=== PATIENT | male | born 1970 | race Caucasian/White ===

== ENCOUNTER → 2016-07-25 | Outpatient (CLI) | payer BC ==
[~2016-07-25] MED LIST: GADAVIST IV PRN; HYDR12.56 PO; IBUP-103 PO; NRV/10 PO; ZNF/4 PO
--- NOTE | 2016-07-25 10:41 | DIAGNOSTIC IMAGING REPORT ---
Brain MRI WITH AND WITHOUT CONTRAST HISTORY: F07.81 Postconcussion [id number] Concussion with no loss o TECHNIQUE: Multiplanar multisequence MRI of the brain was performed both before and after the intravenous administration of contrast. COMPARISON STUDY: Head CT 11/11/2013. FINDINGS: There are no areas of restricted diffusion to suggest acute infarction. The midline structures are intact. Mild mucosal thickening within the sphenoid sinuses, maxillary sinuses, and ethmoid air cells. There are few partially opacified left inferior mastoid air cells. A single punctate focus of T2 hyperintensity within the right parietal periventricular white matter. This is of doubtful clinical significance. A 5 mm cystic focus within the right anterior temporal lobe best seen on axial image 9 likely represents a prominent perivascular space. This is considered to be a normal variant. The ventricles and sulci are within normal limits for age. There is no mass, hematoma, midline shift. The major vascular flow-voids at the skull base are well maintained. Postcontrast sequences show no areas of abnormal enhancement. IMPRESSION: No acute intracranial abnormality. Mild chronic sinus disease. Electronically signed by: Choco Lai M.D. 07/25/2016 10:40 AM Dictated Date/Time: 07/25/2016 10:31 AM
[2016-07-25 14:29] LABS: BASO % 0.3 %; BASO ABS # 0.04 K/uL (0-0.2); COMPLETE YES; EOS % 2.5 %; IG% 0.3 %; LYMPH % 13.1 %; LYMPH ABS # 2.05 K/uL (1.2-3.4); MEAN CELL VOLUME 86.7 fL (80-100); MEAN CORPUSCULAR HEMOGLOBIN 30.1 pg (25-34); MEAN CORPUSCULAR HGB CONC 34.7 g/dl (32-36); MEAN PLATELET VOLUME 10.5 fL (7.4-10.4); MONO % 8.2 %; NEUT % 75.6 %; PLATELET COUNT 291 K/uL (130-400); RED BLOOD COUNT 5.19 M/uL (4.7-6.1); WHITE BLOOD COUNT 15.68 K/uL (4.8-10.8)
[2016-07-25 14:33] LABS: ALT/SGPT 46 U/L (12-78); BLOOD UREA NITROGEN 13 mg/dl (7-18); BUN/CREATININE RATIO 13.9 (10-20); CALCIUM 9.2 mg/dl (8.5-10.1); CARBON DIOXIDE 28 mmol/L (21-32); CHLORIDE 107 mmol/L (98-107); CREATININE 0.96 mg/dl (0.60-1.40); GLUCOSE 109 mg/dl (70-99); POTASSIUM 3.8 mmol/L (3.5-5.1); SODIUM 143 mmol/L (136-145)
[2016-07-25 14:44] LABS: ALB/GLOB RATIO 1.3 (0.9-2); ALKALINE PHOSPHATASE 73 U/L (45-117); AST/SGOT 25 U/L (15-37)
[2016-07-25 18:14] LABS: LYME DISEASE AB IGG NEG (NEG); LYME DISEASE AB IGM NEG (NEG)
[2016-07-27 02:47] LABS: RAPID PLASMA REAGIN NONREACTIVE (NONREACT)
== END | disposition home or self-care (01) ==
LOC: C.MRIBC 09:36
PROVIDERS: ATTEND Psychiatry & Neurology Neurology
DX: R51 Headache (principal); R41.89 Other symptoms and signs involving cognitive functions and awareness; S06.0X0A Concussion without loss of consciousness, initial encounter; X58.XXXA Exposure to other specified factors, initial encounter

== ENCOUNTER → 2016-09-05 | Outpatient (CLI) | payer BC ==
[~2016-09-05] MED LIST changes: -GADAVIST IV PRN
== END | disposition home or self-care (01) ==
LOC: C.LABBC 15:23
PROVIDERS: ATTEND Internal Medicine
DX: F07.81 Postconcussional syndrome (principal)

== ENCOUNTER → 2016-09-20 | Outpatient (CLI) | payer BC ==
[~2016-09-20] MED LIST changes: +OPTIRAY 320 IV PRN
--- NOTE | 2016-09-20 13:33 | DIAGNOSTIC IMAGING REPORT ---
CT ANGIOGRAM OF THE CHEST CLINICAL HISTORY: Cough. Atypical chest pain. Hemoptysis. COMPARISON STUDY: Chest x-ray dated 11/08/2015. TECHNIQUE: Following the IV administration of 93 cc of Optiray 320, CT angiogram of the chest was performed from the upper abdomen to the thoracic inlet utilizing the pulmonary embolus protocol. Images are reviewed in the axial, sagittal, and coronal planes. 3-D MIPS images are created and assessed. IV contrast was administered without complication. CT DOSE: 586.11 mGycm FINDINGS: Thyroid: Imaged portions of the thyroid gland are normal in size and attenuation. Thoracic aorta: The thoracic aorta is normal in caliber and demonstrates standard 3-vessel arch anatomy. No dissection is seen. Pulmonary vasculature: The pulmonary trunk is normal in caliber. There are no filling defects identified in main, lobar, or segmental pulmonary branches to suggest pulmonary embolus. Heart: The heart is normal in size and configuration, and without pericardial effusion. Lungs and pleural spaces: The lungs and pleural spaces are clear. Mediastinum: There is no mediastinal lymphadenopathy. Lyndsey: Clear. Axillae: There is no axillary lymphadenopathy. Upper abdomen: 1.3 cm cyst is noted in the left hepatic lobe. Partially visualized upper abdominal viscera is otherwise within normal limits. Skeletal structures: No lytic or blastic bony lesions are seen. IMPRESSION: 1. There is no evidence of pulmonary embolus in the main, lobar, or segmental pulmonary arteries. 2. The lungs are clear. Electronically signed by: Papa Guillen M.D. 09/20/2016 1:32 PM Dictated Date/Time: 09/20/2016 1:22 PM
== END | disposition home or self-care (01) ==
LOC: C.CTS 12:58
PROVIDERS: ATTEND Internal Medicine
DX: R07.89 Other chest pain (principal); R04.2 Hemoptysis; R06.00 Dyspnea, unspecified

== ENCOUNTER → 2017-08-24 | Outpatient (CLI) | payer BC ==
[~2017-08-24] MED LIST changes: -OPTIRAY 320 IV PRN
--- NOTE | 2017-08-24 15:54 | DIAGNOSTIC IMAGING REPORT ---
RIGHT HAND 3 VIEWS, LEFT HAND 3 VIEWS CLINICAL HISTORY: Bilateral hand pain. COMPARISON STUDY: None. FINDINGS: No fracture or dislocation within the right or left hand. 1 mm punctate density within the soft tissues of the left thumb consistent with a radiopaque foreign body. Bone mineralization is intact. No erosions identified. Minimal cartilage space narrowing and tiny osteophytes within a few of the DIP joints of the bilateral hands and left first carpometacarpal joint. This is consistent with degenerative change. IMPRESSION: 1. Minimal osteoarthritis within the bilateral hands. 2. No bony erosions identified. 3. A 1 mm punctate radiopaque foreign body within the soft tissues of the left thumb. Electronically signed by: Choco Lai M.D. 08/24/2017 3:52 PM Dictated Date/Time: 08/24/2017 3:47 PM
[2017-08-24 16:46] LABS: BASO % 0.4 %; BASO ABS # 0.04 K/uL (0-0.2); EOS ABS # 0.29 K/uL (0-0.5); HEMATOCRIT 43.1 % (42-52); HEMOGLOBIN 15.2 g/dL (14.0-18.0); IG# 0.03 K/uL (0.00-0.02); LYMPH % 28.1 %; LYMPH ABS # 2.67 K/uL (1.2-3.4); MEAN CELL VOLUME 86.4 fL (80-100); MEAN CORPUSCULAR HEMOGLOBIN 30.5 pg (25-34); MEAN CORPUSCULAR HGB CONC 35.3 g/dl (32-36); MEAN PLATELET VOLUME 9.8 fL (7.4-10.4); MONO % 6.7 %; MONO ABS # 0.64 K/uL (0.11-0.59); NEUT % 61.5 %; NEUT ABS # 5.84 K/uL (1.4-6.5); PLATELET COUNT 299 K/uL (130-400); RED CELL DISTRIBUTION WIDTH CV 12.7 % (11.5-14.5); RED CELL DISTRIBUTION WIDTH SD 40.1 fL (36.4-46.3); WHITE BLOOD COUNT 9.51 K/uL (4.8-10.8)
[2017-08-24 17:10] LABS: ALBUMIN 4.1 gm/dl (3.4-5.0); ALT/SGPT 28 U/L (12-78); BLOOD UREA NITROGEN 13 mg/dl (7-18); CALCIUM 8.8 mg/dl (8.5-10.1); CARBON DIOXIDE 26 mmol/L (21-32); CHOLESTEROL 240 mg/dl (0-200); CREATININE 1.03 mg/dl (0.60-1.40); GLUCOSE 83 mg/dl (70-99); SODIUM 138 mmol/L (136-145); URIC ACID 5.3 mg/dl (2.6-7.2)
[2017-08-24 17:13] LABS: ALKALINE PHOSPHATASE 65 U/L (45-117); AST/SGOT 22 U/L (15-37); LDL CHOLESTEROL CALCULATED 169 mg/dl; TOTAL PROTEIN 7.4 gm/dl (6.4-8.2)
== END ==
LOC: C.RADBC 15:18
PROVIDERS: ATTEND Internal Medicine
DX: I10 Essential (primary) hypertension (principal); E78.5 Hyperlipidemia, unspecified; M79.641 Pain in right hand; M79.642 Pain in left hand

== ENCOUNTER 2018-09-20 20:56 | Observation (INO) ==
[2018-09-20] MEDS ORDERED: ONDANSETRON INJ 2 MG/ML 2 ML VIAL IV STA (22:36)
[2018-09-20] MEDS ORDERED: MoRPHine SULFATE 4 MG/ML 1 ML CARP\\VIAL IV STA (22:36)
[2018-09-20] MEDS ORDERED: HYDROmorphone INJ 1 MG/ML SYRINGE IV STA (22:39)
[2018-09-20 22:49] LABS: Appearance Urine Cloudy (Clear); Bacteria Urine Automated Negative (Negative); Bilirubin Urine Negative (Negative); Blood Urine Negative (Negative); Color Urine Yellow; Epithelial Cell Urine Auto 0-5 /lpf (0-5); Glucose Urine UA Negative (Negative); Ketones Urine Negative (Negative); Leukocyte Esterase Urine Negative (Negative); Nitrite Urine Negative (Negative); Protein Urine Negative (Negative); Urobilinogen Urine Negative (Negative); pH Urine 7.5 (4.5-7.5)
[2018-09-20 22:51] LABS: Basophils # (auto) 0.04 K/uL (0-0.2); Basophils % (auto) 0.4 %; Eosinophils # (auto) 0.39 K/uL (0-0.5); Eosinophils % (auto) 4.1 %; Hemoglobin 15.3 g/dL (14.0-18.0); Immature Granulocytes # (auto) 0.02 K/uL (0.00-0.02); Immature Granulocytes % (auto) 0.2 %; Lymphocytes # (auto) 2.51 K/uL (1.2-3.4); Lymphocytes % (auto) 26.4 %; Mean Corpuscular Hgb Conc 34.8 g/dL (32-36); Mean Corpuscular Volume 90.2 fL (80-100); Mean Platelet Volume 10.4 fL (7.4-10.4); Monocytes # (auto) 0.88 K/uL (0.11-0.59); Monocytes % (auto) 9.2 %; Neutrophils # (auto) 5.68 K/uL (1.4-6.5); Neutrophils % (auto) 59.7 %; Platelet Count 296 K/uL (130-400); RDW Coefficient of Variation 12.4 % (11.5-14.5); RDW Standard Deviation 40.4 fL (36.4-46.3); Red Blood Count 4.88 M/uL (4.7-6.1); White Blood Count 9.52 K/uL (4.8-10.8)
[2018-09-20 23:27] LABS: Calcium 8.5 mg/dl (8.5-10.1); Est GFR (Non-African American) 68.1; Potassium 4.3 mmol/L (3.5-5.1)
--- NOTE | 2018-09-20 23:34 | Ultrasound Report ---
ULTRASOUND LEFT GROIN NONVASCULAR CLINICAL HISTORY: Left groin pain. COMPARISON STUDY: Pelvic CT dated 09/19/2018. FINDINGS: Real-time grayscale sonography of the left groin is performed to assess for inguinal hernia . There is a small and nonreducible fat-containing left inguinal hernia. No bowel or fluid is identif ied within the hernia sac. No inguinal adenopathy is seen. IMPRESSION: There is a small and nonreducible fat-containing left inguinal hernia. This was also seen on the 09/19/2018 CT scan. Electronically signed by: Papa Guillen M.D. 09/20/2018 11:33 PM
[2018-09-21] MEDS ORDERED: HYDROmorphone INJ 1 MG/ML SYRINGE ONE (00:59)
[2018-09-21] MEDS ORDERED: HYDROmorphone INJ 1 MG/ML SYRINGE IV STA ×2 (01:04→01:16)
[2018-09-21] MEDS ORDERED: IOVERSOL 100ml IV PRN (01:16)
[2018-09-21] MEDS ORDERED: SODIUM CHLORIDE 0.9% 1000ML 1,000 ML IV ONE (01:16)
--- NOTE | 2018-09-21 01:23 | CT Scan Report ---
CT SCAN OF THE PELVIS WITH IV CONTRAST CLINICAL HISTORY: Left groin pain. COMPARISON STUDY: Pelvic CT dated 09/19/2018. TECHNIQUE: Following the IV administration of 94 cc of Optiray 320, CT scan of the pelvis is performe d from the pelvic inlet to the proximal femora. Images are reviewed in the axial, sagittal, and coron al planes. IV contrast was administered without complication. A dose lowering technique was utilized adhering to the principles of ALARA. CT DOSE: 417.83 mGy.cm FINDINGS: The bladder, prostate, and seminal vesicles are normal as visualized. There is a small fat-containing right inguinal hernia. There is also a tiny fat-containing left inguinal hernia. Minimal stranding i s seen within the left inguinal hernia which may represent incarceration. There is no bowel within th e hernia sac. The visualized small bowel and colon are normal in caliber. A normal appendix is identified. There is a tiny fat-containing umbilical hernia. There is no pelvic sidewall or inguinal lymphadenopathy. No free fluid seen in the pelvis. The iliac vessels are patent. The bony pelvis appears intact. No lytic or blastic lesion is seen. The regional musculature is malissa l and symmetric. IMPRESSION: 1. There are bilateral fat-containing inguinal hernias, right larger than left. 2. There is minimal stranding within the left inguinal hernia which may represent incarceration. 3. No bowel or fluid is seen within either hernia. Electronically signed by: Papa Guillen M.D. 09/21/2018 1:22 AM
[2018-09-21] MEDS ORDERED: ONDANSETRON INJ 2 MG/ML 2 ML VIAL IV PRN ×2 (02:29→12:35)
--- NOTE | 2018-09-21 02:48 | Emergency Department Note ---
History of Present Illness General Chief complaint: Abdominal Pain Stated complaint: ABDOMINAL PAIN, HERNIA RUPTURE History of Present Illness Maximum Pain Intensity: 6 This 48-year-old presents to the ER complaining of left groin pain Location: Left groin Quality: Throbbing Severity: Moderate Duration: Today Timing: Today Context: Pain persisted and patient came in Modifying factors: better with nothing; worse with palpation Patient states he was coughing and felt a bulge down below. He was here the other day and states that we reduced his hernia. He has appointment next week with Dr. Gore. Patient denies chest pain, dyspnea, fevers, back pain or any other medical complaints. Home Medications Home Medications Medication Instructions Recorded Confirmed Type amlodipine 10 mg PO DAILY 03/29/18 09/20/18 History metoprolol succinate [Toprol XL] 25 mg PO DAILY 03/29/18 09/20/18 History lidocaine [Lidoderm] 1 patch TOP DAILY PRN 09/19/18 09/20/18 History telmisartan 80 mg PO DAILY 09/19/18 09/20/18 History diclofenac sodium 75 mg PO BID PRN 09/20/18 09/20/18 History escitalopram oxalate [Lexapro] 20 mg PO DAILY 09/20/18 09/20/18 History tizanidine [Zanaflex] 4 mg PO DAILY PRN 09/20/18 09/20/18 History Allergies Allergy/AdvReac Type Severity Reaction Status Date / Time Sulfa (Sulfonamide Allergy Unknown . Verified 09/19/18 09:53 Antibiotics) Past Med/Surg History Medical History Hyperlipidemia (Chronic) Hypertension (Chronic) Lumbar back pain with radiculopathy affecting left lower extremity (Acute) Cervical strain (Resolved) Cervical strain (Resolved) Contusion of right shoulder (Resolved) Facial fracture (Resolved) Fall (Resolved) Head trauma (Resolved) Lumbar strain (Resolved) Low back pain (Inactive) Surgical History History of lumbar surgery (Resolved) L5-S1 surgery [address] 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 Feels Safe at Home: Yes Smoking Status: Never smoker Hx Alcohol Use: Yes (occassionally) Hx Substance Use: No Review of Systems All systems reviewed & are unremarkable except as noted in HPI & below Physical Exam Vital Signs Vital Signs - 24 hr 09/20/18 20:59 09/20/18 23:22 09/21/18 01:17 Temperature 36.9 C Temperature Source Oral Sepsis Recent Fever Within 48 Hours No Sepsis New/Unexplained Change in Mental Status No Sepsis Action Taken by Nursing No Action Required Pulse Rate 98 H Pulse Rate [Finger] 81 76 Pulse Rhythm [Finger] Regular Pulse Strength [Finger] Normal Respiratory Rate 18 18 18 Respiratory Effort / Characteristics Non-Labored Respiratory Depth Normal Respiratory Pattern Regular Blood Pressure 170/103 H Blood Pressure [Right Arm] 146/83 H 123/84 Blood Pressure Mean 125 Blood Pressure Mean [Right Arm] 104 97 Blood Pressure Position [Right Arm] Lying Pulse Oximetry 97 97 94 Oxygen Delivery Method Room Air Room Air VITALS: Vitals are noted on the nurse's note and reviewed by myself. Vital signs stable. GENERAL: White male, in no acute distress, nondiaphoretic, well-developed well- nourished. SKIN: Capillary reflex less than 2 seconds. HEENT: Normocephalic. PERRLA. EOMI. Nares patent. Mucous membranes moist. Neck is supple without nuchal rigidity. HEART: Regular rate and rhythm without murmurs gallops or rubs. LUNGS: Clear to auscultation bilaterally without wheezes, rales or rhonchi. No retractions or accessory muscle use. ABDOMEN: Positive bowel sounds x 4. Normal tympanic percussion. Soft, nontender, without masses or organomegaly. Left groin with palpable hernia unable to reduce, Ngo sign negative. No guarding or rebound tenderness. exam: Left groin no palpable hernia unable to reduce. Normal male genitalia. Testicles nontender. Staff Radiologist present. MUSCULOSKELETAL: No gross musculoskeletal defects. NEURO: Patient was alert and oriented to person place and time. Normal sensation to light and sharp touch. No focal neurological deficits. Course Administered Medications Ioversol (Optiray 320 100ml) 94 ml IV ONCE PRN PRN Reason: Interaction Checking Stop: 09/25/18 01:15 Last Admin: 09/21/18 01:16 Dose: 94 ml Documented by: [id number] Discontinued Medications Hydromorphone HCl (Dilaudid) 1 mg IV NOW STA Stop: 09/20/18 22:40 Last Admin: 09/20/18 22:42 Dose: 1 mg Documented by: [id number] Hydromorphone HCl (Dilaudid) Confirm Administered Dose 1 mg .ROUTE .STK-MED ONE Stop: 09/21/18 01:00 Last Admin: 09/21/18 01:06 Dose: Not Given Documented by: [id number] Hydromorphone HCl (Dilaudid) 1 mg IV NOW STA Stop: 09/21/18 01:05 Last Admin: 09/21/18 01:10 Dose: 1 mg Documented by: [id number] Sodium Chloride (Nss 1000ml) 1,000 mls @ 999 mls/hr IV .Q1H1M ONE Stop: 09/21/18 02:16 Last Infusion: 09/21/18 02:21 Dose: 0 mls/hr Documented by: [id number] Admin: 09/21/18 01:19 Dose: 999 mls/hr Documented by: [id number] Morphine Sulfate (Morphine Sulfate) 6 mg IV NOW STA Stop: 09/20/18 22:37 Last Admin: 09/20/18 22:42 Dose: Not Given Documented by: [id number] Ondansetron HCl (Zofran) 4 mg IV NOW STA Stop: 09/20/18 22:37 Last Admin: 09/20/18 22:43 Dose: 4 mg Documented by: [id number] Medical Decision Making Medical Records Attestation: I reviewed the patient's medical records. Home Medications Current Medication List: was personally reviewed by me Laboratory Data Attestation: I reviewed the patient's lab results. Result diagrams: 09/20/18 21:40 09/20/18 21:40 Lab Results 09/20/18 09/20/18 09/20/18 Range/Units 21:05 21:40 21:40 WBC 9.52 (4.8-10.8) K/uL RBC 4.88 (4.7-6.1) M/uL Hgb 15.3 (14.0-18.0) g/dL Hct 44.0 (42-52) % MCV 90.2 (80-100) fL MCH 31.4 (25-34) pg MCHC 34.8 (32-36) g/dL RDW Std Deviation 40.4 (36.4-46.3) fL RDW Coeff of Brooks 12.4 (11.5-14.5) % Plt Count 296 (130-400) K/uL MPV 10.4 (7.4-10.4) fL Immature Gran % (Auto) 0.2 % Neut % (Auto) 59.7 % Lymph % (Auto) 26.4 % [place] % (Auto) 9.2 % Eos % (Auto) 4.1 % Baso % (Auto) 0.4 % Immature Gran # (Auto) 0.02 (0.00-0.02) K/uL Neut # (Auto) 5.68 (1.4-6.5) K/uL Lymph # (Auto) 2.51 (1.2-3.4) K/uL [place] # (Auto) 0.88 H (0.11-0.59) K/uL Eos # (Auto) 0.39 (0-0.5) K/uL Baso # (Auto) 0.04 (0-0.2) K/uL Sodium 143 (136-145) mmol/L Potassium 4.3 (3.5-5.1) mmol/L Chloride 108 H (98-107) mmol/L Carbon Dioxide 30 (21-32) mmol/L Anion Gap 5.0 (3-11) BUN 15 (7-18) mg/dl Creatinine 1.25 (0.6-1.4) mg/dl Est Cr Clr Drug Dosing 79.0 ml/min Est GFR ( Amer) 79.0 Est GFR (Non-Af Amer) 68.1 BUN/Creatinine Ratio 12.0 (10-20) Glucose 100 H (70-99) mg/dl POC Lactic Acid Jerardo (0.90-1.70) mmol/L Calcium 8.5 (8.5-10.1) mg/dl Specimen Hemolysis Urine Color Yellow Urine Appearance Cloudy H (Clear) Urine pH 7.5 (4.5-7.5) Ur Specific [place] 1.020 (1.000-1.030) Urine Protein Negative (Negative) Urine Glucose (UA) Negative (Negative) Urine Ketones Negative (Negative) Urine Blood Negative (Negative) Urine Nitrite Negative (Negative) Urine Bilirubin Negative (Negative) Urine Urobilinogen Negative (Negative) Ur Leukocyte Esterase Negative (Negative) Urine WBC (Auto) 1-5 (0-5) /hpf Urine RBC (Auto) 5-10 H (0-4) /hpf U Hyaline Cast (Auto) 1-5 (0-5) /lpf U Epithel Cells (Auto) 0-5 (0-5) /lpf Urine Bacteria (Auto) Negative (Negative) 09/21/18 Range/Units 01:32 WBC (4.8-10.8) K/uL RBC (4.7-6.1) M/uL Hgb (14.0-18.0) g/dL Hct (42-52) % MCV (80-100) fL MCH (25-34) pg MCHC (32-36) g/dL RDW Std Deviation (36.4-46.3) fL RDW Coeff of Brooks (11.5-14.5) % Plt Count (130-400) K/uL MPV (7.4-10.4) fL Immature Gran % (Auto) % Neut % (Auto) % Lymph % (Auto) % [place] % (Auto) % Eos % (Auto) % Baso % (Auto) % Immature Gran # (Auto) (0.00-0.02) K/uL Neut # (Auto) (1.4-6.5) K/uL Lymph # (Auto) (1.2-3.4) K/uL [place] # (Auto) (0.11-0.59) K/uL Eos # (Auto) (0-0.5) K/uL Baso # (Auto) (0-0.2) K/uL Sodium (136-145) mmol/L Potassium (3.5-5.1) mmol/L Chloride (98-107) mmol/L Carbon Dioxide (21-32) mmol/L Anion Gap (3-11) BUN (7-18) mg/dl Creatinine (0.6-1.4) mg/dl Est Cr Clr Drug Dosing ml/min Est GFR ( Amer) Est GFR (Non-Af Amer) BUN/Creatinine Ratio (10-20) Glucose (70-99) mg/dl POC Lactic Acid Jerardo 0.59 L (0.90-1.70) mmol/L Calcium (8.5-10.1) mg/dl Specimen Hemolysis Urine Color Urine Appearance (Clear) Urine pH (4.5-7.5) Ur Specific [place] (1.000-1.030) Urine Protein (Negative) Urine Glucose (UA) (Negative) Urine Ketones (Negative) Urine Blood (Negative) Urine Nitrite (Negative) Urine Bilirubin (Negative) Urine Urobilinogen (Negative) Ur Leukocyte Esterase (Negative) Urine WBC (Auto) (0-5) /hpf Urine RBC (Auto) (0-4) /hpf U Hyaline Cast (Auto) (0-5) /lpf U Epithel Cells (Auto) (0-5) /lpf Urine Bacteria (Auto) (Negative) MDM Narrative Prior records/ancillary studies reviewed. Triage Nursing notes reviewed. Additional history obtained from the. The patient's history was concerning for left lower groin abdominal pain. Differential diagnosis: Etiologies such as hernia, appendicitis, diverticulitis, PUD, biliary pathology, UTI, pancreatitis, obstruction, mesenteric ischemia, aortic pathology, infections, inflammatory bowel disease, renal colic, as well as others were entertained. Physical examination findings: As above. ER treatment provided: IV Dilaudid, IV fluids On reassessment the patient felt better. Diagnostics interpreted by me: The labs revealed no leukocytosis Imaging studies: CT scans were reviewed Consultation: A consultation was placed with the surgeon, Dr. Anthony. The case was discussed and diagnostics were reviewed. The patient was admitted to his service and will evaluate the patient in the morning for surgery. Exam and history seem consistent with possible incarcerated hernia. Patient is agreeable to treatment plan of admission. I did try to reduce the hernia and was unsuccessful. Surgery will evaluate the patient. Patient had a negative lactic acid. No leukocytosis. By the evaluation outlined above emergent etiologies such as appendicitis, diverticulitis, PUD, biliary pathology, UTI, pancreatitis, mesenteric ischemia, aortic pathology, infections, inflammatory bowel disease, renal colic, as well as others were deemed relatively unlikely. The pt informed about the findings as listed above. All questions were answered and pleased with the treatment. Case reviewed with my attending The chart was completed utilizing [employer] voice recognition software. Grammatical errors, random word insertions, pronoun errors, and incomplete sentences are an occassional consequence of this system due to software limitations, ambient noise, and hardware issues. Any formal questions or concerns about the content, text, or information contained within the body of this dictation should be directly addressed to the physician home care assistant for clarification. Impression & Plan Incarcerated left inguinal hernia Discharge Plan Visit Data *Final* Discharge Date/Time: 09/21/18 02:20 Chief Complaint: Abdominal Pain Stated Complaint: ABDOMINAL PAIN, HERNIA RUPTURE ED Provider: Ayden Sherwood ED Midlevel Provider: Rosanna Currie Discharge Problem: Incarcerated left inguinal hernia Patient Disposition: Admitted As Inpatient Condition: Good Discharge Instructions Interventions: ED Discharge Assessment Last Done: 09/21/18 02:20
[2018-09-21] MEDS: HYDROmorphone INJ 1 MG/ML SYRINGE IV PRN ×3 (02:50→12:39)
[2018-09-21] MEDS: LACTATED RINGER'S 1,000 ML IV SCH ×2 (02:56→19:41)
[2018-09-21] MEDS: HYDROmorphone INJ 0.5 MG/0.5 ML SYR IV PRN ×2 (06:46→17:24)
--- NOTE | 2018-09-21 07:42 | Anesthesiology Consultation ---
Date of Service September 21, 2018 Assessment & Plan Chart Review Chart Review: Acceptable Risk for Surgery and Patient NOT seen in Pre Admission Testing Consults Requested none ASA [id number] Proposed Anesthesia Anesthesia Type: General Risk / Benefits Reviewed With: PT / POA / Parent / Guardian, Accepts Plan and Informed Consent Obtained NPO Date Last Intake of Fluids: 09/20/18 Time Last Intake of Fluids: 18:00 Date Last Intake of Solids: 09/20/18 Time Last Intake of Solids: 18:00 History Surgery Operation Date: 09/21/18 13:00 Proposed Procedures p Inguinal Hernia Repair(Left) - Almas Anthoyn, Height/Weight Height: 1.68 m Weight: 92.3 kg Allergies Allergy/AdvReac Type Severity Reaction Status Date / Time Sulfa (Sulfonamide Allergy Unknown . Verified 09/19/18 09:53 Antibiotics) Medications Home Medications Medication Instructions Recorded Confirmed Last Taken amlodipine 10 mg PO DAILY 03/29/18 09/20/18 04/01/18 metoprolol succinate [Toprol XL] 25 mg PO DAILY 03/29/18 09/20/18 04/01/18 lidocaine [Lidoderm] 1 patch TOP DAILY PRN 09/19/18 09/20/18 Unknown telmisartan 80 mg PO DAILY 09/19/18 09/20/18 Unknown diclofenac sodium 75 mg PO BID PRN 09/20/18 09/20/18 Unknown escitalopram oxalate [Lexapro] 20 mg PO DAILY 09/20/18 09/20/18 Unknown tizanidine [Zanaflex] 4 mg PO DAILY PRN 09/20/18 09/20/18 Unknown oxycodone-acetaminophen [Endocet] 1 - 2 tab PO Q6H PRN #30 tab 09/21/18 Unknown Active Medications Generic Name Dose Route Start Last Admin Trade Name Freq PRN Reason Stop Dose Admin Amlodipine Besylate 10 mg 09/21/18 09:00 09/21/18 09:28 Norvasc PO 10/21/18 08:59 10 mg DAILY ASHLEY Administration Hydromorphone HCl 0.5 mg 09/21/18 02:29 09/21/18 06:46 Dilaudid IV 10/05/18 02:28 0.5 mg Q1HWA PRN Administration MODERATE Pain (Scale 4,5,6) Hydromorphone HCl 1 mg 09/21/18 02:29 09/21/18 12:39 Dilaudid IV 10/05/18 02:28 1 mg Q1HWA PRN Administration SEVERE Pain (Scale 7,8,9,10) Lactated Ringer's 1,000 mls @ 100 mls/hr 09/21/18 02:29 09/21/18 03:57 Lr IV 10/21/18 02:28 100 mls/hr .Q10H ASHLEY Infusion Ioversol 94 ml 09/21/18 01:16 09/21/18 01:16 Optiray 320 100ml IV 09/25/18 01:15 94 ml ONCE PRN Administration Interaction Checking Metoprolol Succinate 25 mg 09/21/18 09:00 09/21/18 09:28 Toprol Xl PO 10/21/18 08:59 25 mg DAILY ASHLEY Administration Telmisartan 80 mg 09/21/18 09:00 09/21/18 09:27 Micardis PO 10/21/18 08:59 80 mg DAILY ASHLEY Administration Beta Jesus Beta Jesus Taken Within 24 Hours: Yes Past Medical History Medical History Hyperlipidemia (Chronic) Hypertension (Chronic) Lumbar back pain with radiculopathy affecting left lower extremity (Acute) Kidney stones Cervical strain (Resolved) Cervical strain (Resolved) Contusion of right shoulder (Resolved) Facial fracture (Resolved) Fall (Resolved) Head trauma (Resolved) Lumbar strain (Resolved) Low back pain (Inactive) Past Family History Family History Other No significant family history Past Surgical History Surgical History History of lumbar surgery (Resolved) L5-S1 surgery [address] Grant Past Anesthesia History No Hx of Anesthesia Complications and No Family Hx of Anesthesia Complications History of PONV No Motion Sickness Screening History of Motion Sickness: No Social History Smoking Status: Never smoker Do You Dip or Chew Tobacco: Yes (1/2 can per day) Hx Alcohol Use: Yes Alcohol type: beer alcohol intake frequency: 0-2 drinks per day Hx Substance Use: No Exercise / Class Metabolic Activity II 4-5 Yardwork/Stairs/Walk up hill Physical Exam Vital Signs Last Vital Signs Temp 36.8 C 09/21/18 07:32 Pulse 60 09/21/18 08:46 Resp 18 09/21/18 07:32 BP 143/84 H 09/21/18 08:46 Pulse Ox 95 09/21/18 07:32 Constitutional + obese ENMT Mouth: no TMJ abnormality and no TMJ clicking Thyromental Distance: > or= 3.5 Finger Breadths Mallampati Class: II Neck normal visual inspection; neck extension not limited Respiratory Auscultation: lungs clear to auscultation bilaterally Cardiovascular Rate/Rhythm: regular rate and regular rhythm Psychiatric Orientation: alert and oriented x 3 Testing Laboratory Results 09/20/18 21:40 09/20/18 21:40 Urine Color Yellow 09/20/18 21:05 Urine Appearance Cloudy (Clear) H 09/20/18 21:05 Urine pH 7.5 (4.5-7.5) 09/20/18 21:05 Ur Specific [place] 1.020 (1.000-1.030) 09/20/18 21:05 Urine Protein Negative (Negative) 09/20/18 21:05 Urine Glucose (UA) Negative (Negative) 09/20/18 21:05 Urine Ketones Negative (Negative) 09/20/18 21:05 Urine Nitrite Negative (Negative) 09/20/18 21:05 Ur Leukocyte Esterase Negative (Negative) 09/20/18 21:05 Urine WBC (Auto) 1-5 /hpf (0-5) 09/20/18 21:05 Urine RBC (Auto) 5-10 /hpf (0-4) H 09/20/18 21:05 U Hyaline Cast (Auto) 1-5 /lpf (0-5) 09/20/18 21:05 U Epithel Cells (Auto) 0-5 /lpf (0-5) 09/20/18 21:05 Urine Bacteria (Auto) Negative (Negative) 09/20/18 21:05
[2018-09-21] MEDS: TELMISARTAN 40 MG TAB PO SCH (09:27)
[2018-09-21] MEDS: AMLODIPINE BESYLATE 5 MG TAB PO SCH (09:28)
[2018-09-21] MEDS: METOPROLOL SUCC 25MG EXT REL TAB PO SCH (09:28)
--- NOTE | 2018-09-21 10:00 | History & Physical Report ---
Date of Service September 21, 2018 Assessment & Plan (1) Incarcerated left inguinal hernia: We discussed his options. Only the left groin is symptomatic and with the acute incarceration I feel we should probably repair that one urgently. I am recommending an open repair with mesh. We discussed bleeding, infection, infection of mesh requiring explant, chronic pain, injury to the spermatic cord, DVT, PE, PR, CVA etc. We have decided to leave the non-acute side alone for now we may consider electively repairing that in the future. I answered all of his questions and he is agreeable to the plan. We will proceed with open left inguinal hernia repair with mesh JOHNATHAN. (2) Lumbar back pain with radiculopathy affecting left lower extremity: (3) Right inguinal hernia: History of Present Illness Primary Care Provider: Uli Kaiser MD Patient with new onset left inguinal discomfort. He was seen in the emergency room yesterday and discharged. He presented again with similar pain. CT scan shows bilateral inguinal hernias with the left inguinal hernia being incarcerated. Patient is currently feeling better after receiving Dilaudid. No nausea or vomiting. The patient does have a history of chronic back issues with chronic back pain including pain into his left lower extremity. Allergies Allergy/AdvReac Type Severity Reaction Status Date / Time Sulfa (Sulfonamide Allergy Unknown . Verified 09/19/18 09:53 Antibiotics) Home Medications Home Medications Medication Instructions Recorded Confirmed Type amlodipine 10 mg PO DAILY 03/29/18 09/20/18 History metoprolol succinate [Toprol XL] 25 mg PO DAILY 03/29/18 09/20/18 History lidocaine [Lidoderm] 1 patch TOP DAILY PRN 09/19/18 09/20/18 History telmisartan 80 mg PO DAILY 09/19/18 09/20/18 History diclofenac sodium 75 mg PO BID PRN 09/20/18 09/20/18 History escitalopram oxalate [Lexapro] 20 mg PO DAILY 09/20/18 09/20/18 History tizanidine [Zanaflex] 4 mg PO DAILY PRN 09/20/18 09/20/18 History Past Med/Surg History Medical History Hyperlipidemia (Chronic) Hypertension (Chronic) Lumbar back pain with radiculopathy affecting left lower extremity (Acute) Kidney stones Cervical strain (Resolved) Cervical strain (Resolved) Contusion of right shoulder (Resolved) Facial fracture (Resolved) Fall (Resolved) Head trauma (Resolved) Lumbar strain (Resolved) Low back pain (Inactive) Surgical History History of lumbar surgery (Resolved) L5-S1 surgery [address] 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 mild discomfort Heent: Pearla. eomi Heart: RRR Lungs: CTA b/l abd: soft. + LIH. nonreducible. minimally tender. RIH with valsalva. nontender ext: no c/c/e Results & Data Medications Administered Amlodipine Besylate (Norvasc) 10 mg PO DAILY ASHLEY Stop: 10/21/18 08:59 Last Admin: 09/21/18 09:28 Dose: 10 mg Documented by: [id number] Hydromorphone HCl (Dilaudid) 0.5 mg IV Q1HWA PRN PRN Reason: MODERATE Pain (Scale 4,5,6) Stop: 10/05/18 02:28 Last Admin: 09/21/18 06:46 Dose: 0.5 mg Documented by: [id number] Hydromorphone HCl (Dilaudid) 1 mg IV Q1HWA PRN PRN Reason: SEVERE Pain (Scale 7,8,9,10) Stop: 10/05/18 02:28 Last Admin: 09/21/18 08:14 Dose: 1 mg Documented by: [id number] Admin: 09/21/18 02:50 Dose: 1 mg Documented by: [id number] Lactated Ringer's (Lr) 1,000 mls @ 100 mls/hr IV .Q10H [facility] Stop: 10/21/18 02:28 Last Infusion: 09/21/18 03:57 Dose: 100 mls/hr Documented by: [id number] Infusion: 09/21/18 03:16 Dose: 0 mls/hr Documented by: [id number] Admin: 09/21/18 02:56 Dose: 100 mls/hr Documented by: [id number] Ioversol (Optiray 320 100ml) 94 ml IV ONCE PRN PRN Reason: Interaction Checking Stop: 09/25/18 01:15 Last Admin: 09/21/18 01:16 Dose: 94 ml Documented by: [id number] Metoprolol Succinate (Toprol Xl) 25 mg PO DAILY [facility] Stop: 10/21/18 08:59 Last Admin: 09/21/18 09:28 Dose: 25 mg Documented by: [id number] Telmisartan (Micardis) 80 mg PO DAILY [facility] Stop: 10/21/18 08:59 Last Admin: 09/21/18 09:27 Dose: 80 mg Documented by: [id number]
[2018-09-21] MEDS ORDERED: BUPIVACAINE/EPINEPHRINE 0.5% MPF 1:200,000 30 ML VIAL ONE (12:31)
[2018-09-21] MEDS ORDERED: PROMETHAZINE HCL 12.5 MG in SODIUM CHLORIDE 0.9% 50 ML IV PRN (12:35)
[2018-09-21] MEDS ORDERED: PHENYLEPHRINE 100MCG/ML 5ML SYR IV PRN (12:35)
[2018-09-21] MEDS ORDERED: HYDROmorphone INJ 1 MG/ML SYRINGE IV PRN (12:35)
[2018-09-21] MEDS ORDERED: ePHEDrine sulfate 50 MG/ML AMP IV PRN (12:35)
[2018-09-21] MEDS ORDERED: ATROPINE SULFATE 0.1 MG/ML 10ML SYR IV PRN (12:35)
[2018-09-21] MEDS ORDERED: ONDANSETRON INJ 2 MG/ML 2 ML VIAL ONE (12:36)
[2018-09-21] MEDS ORDERED: DEXAMETHASONE SOD INJ 4 MG/ML VIAL ONE (12:36)
[2018-09-21] MEDS ORDERED: NEOSTIGMINE METHYLSULFATE 5 MG/5 ML SYR ONE (12:36)
[2018-09-21] MEDS ORDERED: PROPOFOL IV EMULSION 10 MG/ML 20 ML VIAL IV ONE (12:36)
[2018-09-21] MEDS ORDERED: GLYCOPYRROLATE 0.2 MG/ML VIAL ONE (12:36)
[2018-09-21] MEDS ORDERED: LIDOCAINE HCL 2% 2 ML VIAL/AMP(20MG/ML) INFIL ONE (12:36)
[2018-09-21] MEDS ORDERED: fentaNYL citrate 100 MCG/2 ML VIAL ONE ×2 (12:37→15:13)
[2018-09-21] MEDS ORDERED: MIDAZOLAM HCL 1 MG/ML 2ML VIAL ONE (12:37)
[2018-09-21] MEDS ORDERED: CEFAZOLIN 2,000 MG/15 ML IV PUSH IV ONE (12:58)
[2018-09-21] MEDS ORDERED: LARYING-O-JET KIT (LTA) ONE (13:30)
[2018-09-21] MEDS ORDERED: ePHEDrine sulfate 50 MG/ML SYR ONE (13:30)
[2018-09-21] MEDS ORDERED: ROCURONIUM BROMIDE 10 MG/ML 5 ML VIAL ONE (13:30)
[2018-09-21] MEDS ORDERED: KETOROLAC 30 MG/ML VIAL ONE (14:15)
[2018-09-21] MEDS ORDERED: CEFAZOLIN 2000MG 2,000 MG/15 ML SYR IV ONE (14:38)
--- NOTE | 2018-09-21 14:45 | Operative Report ---
Post Operative Report Pre & Post Diagnosis Operation Date: 09/21/18 13:00 Pre-Op Diagnosis: LEFT INGUINAL HERNIA Post-Op Diagnosis: LEFT INGUINAL HERNIA; cord lipoma Procedure Operation Date: 09/21/18 13:00 Actual Procedures p Left Inguinal Hernia Repair(Left) with mesh;excision of cord lipoma- Almas Anthony DO Surgeon Almas Anthony DO Media Marketing Coordinator n/a Estimated Blood Loss 5 Findings Consistent with Post-Op Diagnosis Specimens none Description of Procedure After informed consent was obtained the patient was taken to the operating room and placed in supine position. After successful placement of the laryngeal mask airway the groin was shaved and sterilely prepped and draped in usual fashion. An inguinal incision was made with a 15 blade scalpel and carried down through the soft tissue using electrocautery. The external oblique aponeurosis was skeletonized. A fresh blade was used to make an incision and then Metzenbaum scissors were used to extend this distally through the external ring as well as for several centimeters proximally. Once in the inguinal canal I used blunt finger dissection to free up the cord and cord structures. I was able to gently tease the cord off of the pubic bone and placed a Jerzy drain around it. There was no evidence of a direct hernia. We inspected the cord and cord structures using blunt dissection with small amounts of electrocautery. Eventually we were able to identify a hernia sac. We dissected this back to its neck and then dunked it back into the abdominal cavity. The sac did not want to stay self reduced so I clamped it divided it with cautery and tied it with 3-0 Vicryl. I was then able to dunk this tied off sac back into the abdominal cavity. There was also a moderate size cord lipoma present. I dissected this back to its neck clamped it divided it and tied it off using 3-0 Vicryl. We then thoroughly irrigated the wound. I used a polypropylene oneill- holed mesh as an onlay. It was secured distally to Miguel Angel's ligament, laterally along the shelving portion of Poupart's ligament and medially along the midline musculature. 0 Ethibond was used for the suturing. The "arms" of the mesh were wrapped around behind the cord and cord structures and again secured to underlying muscle. The mesh laid nice and flat and tension-free and did not impinge on the cord structures themselves. We thoroughly irrigated the wound. There was adequate hemostasis. I injected Marcaine around the edges of the mesh for postoperative analgesia. We then closed the external oblique aponeurosis with 2-0 Vicryl in a running fashion. Soft tissue was irrigated and closed in multiple layers using 3-0 Vicryl for the deep layers and 4-0 Monocryl for the skin. Some additional Marcaine was injected around the skin incision. We then used a skin glue as a dressing. The patient was awaken extubated and transferred to recovery in stable condition. I attest to the content of the Intraoperative Record and any orders documented therein. Any exceptions are noted below.
[2018-09-21] MEDS ORDERED: OXYCODONE/ACETAMINOPHEN 5mg/325mg TAB PO PRN (14:49)
[2018-09-21] MEDS: fentaNYL citrate 100 MCG/2 ML VIAL IV PRN ×2 (15:13→15:18)
[2018-09-21] MEDS ORDERED: TIZANIDINE HCL 4 MG TABLET PO PRN (15:53)
[2018-09-21] MEDS ORDERED: DICLOFENAC SODIUM 75 MG TABCR PO PRN (15:53)
[2018-09-21] MEDS ORDERED: LIDOCAINE 5% 1 PATCH TD PRN (15:53)
--- NOTE | 2018-09-21 15:54 | Anesthesiology Progress Note ---
Date of Service September 21, 2018 Anesthesia Post Procedure Vital Signs Vital Signs: Temp Pulse Pulse Pulse Resp BP BP 09/21/18 15:25 36.5 C 59 L 14 134/98 09/21/18 15:15 59 L 16 119/100 09/21/18 15:05 65 16 132/94 09/21/18 14:55 79 16 153/101 H 09/21/18 14:49 36.5 C 76 14 141/88 H 09/21/18 08:46 60 143/84 H 09/21/18 07:32 36.8 C 60 18 09/21/18 02:30 36.8 C 67 16 09/21/18 01:17 76 18 09/20/18 23:22 81 18 09/20/18 20:59 36.9 C 98 H 18 170/103 H BP Pulse Ox 09/21/18 15:25 98 09/21/18 15:15 98 09/21/18 15:05 99 09/21/18 14:55 96 09/21/18 14:49 97 09/21/18 08:46 09/21/18 07:32 120/73 95 09/21/18 02:30 159/106 H 94 09/21/18 01:17 123/84 94 09/20/18 23:22 146/83 H 97 09/20/18 20:59 97 Pain Intensity Groin: Pain Intensity: 2 Notes Mental Status: alert / awake / arousable Patient Amnestic to Procedure: Yes Nausea / Vomiting: adequately controlled Pain: adequately controlled Airway Patency, RR, SpO2: stable & adequate BP & HR: stable & adequate Hydration State: stable & adequate Anesthetic Complications: no major complications apparent
[2018-09-21] MEDS: ACETAMINOPHEN 1000 MG/100 ML IV IV PRN (19:47)
[2018-09-21] MEDS: OXYCODONE/ACETAMINOPHEN 5mg/325mg TAB PO PRN (22:12)
[2018-09-22] MEDS: OXYCODONE/ACETAMINOPHEN 5mg/325mg TAB PO PRN (03:23)
[2018-09-22] MEDS: LACTATED RINGER'S 1,000 ML IV SCH (05:58)
[2018-09-22] MEDS: ACETAMINOPHEN 1000 MG/100 ML IV IV PRN (06:49)
[2018-09-22 07:51] VITALS: TEMP 98.1; O2SAT 97
[2018-09-22] MEDS: METOPROLOL SUCC 25MG EXT REL TAB PO SCH (08:29)
[2018-09-22] MEDS: TELMISARTAN 40 MG TAB PO SCH (08:29)
[2018-09-22] MEDS: AMLODIPINE BESYLATE 5 MG TAB PO SCH (08:29)
[2018-09-22] MEDS ORDERED: ESCITALOPRAM OXALATE 20 MG TAB PO SCH (09:00)
[2018-09-22] MEDS ORDERED: HYDROCODONE/ACETAMOPHEN 5/325MG TAB PO PRN ×2 (10:51)
--- NOTE | 2018-09-22 14:05 | Surgery Progress Note ---
Date of Service September 22, 2018 Assessment & Plan (1) Reducible left inguinal hernia: POD 1 doing ok ok for d/c instructions given Subjective had some issues with pain overnight. improved some now after norco. Physical Exam Vital Signs (Past 24 Hours): Last Vital Signs Temp 36.7 C 09/22/18 07:49 Pulse 64 09/22/18 07:49 Resp 18 09/22/18 07:49 BP 145/89 H 09/22/18 07:49 Pulse Ox 97 09/22/18 07:49 Physical Exam: alert. nad. appears comfortable abd: soft. incision looks good.
[2018-09-22 14:06] VITALS: BP 134/98; PULSE 59
--- NOTE | 2018-09-23 09:43 | Discharge Summary ---
Date of Service September 25, 2018 Admission HPI Per Admitting Provider Patient with new onset left inguinal discomfort. He was seen in the emergency room yesterday and discharged. He presented again with similar pain. CT scan shows bilateral inguinal hernias with the left inguinal hernia being incarcerated. Patient is currently feeling better after receiving Dilaudid. No nausea or vomiting. The patient does have a history of chronic back issues with chronic back pain including pain into his left lower extremity. Discharge Data Consultations 09/21/18 01:38 ED Decision to Admit Stat Procedures Performed Operation Date: 09/21/18 13:00 Actual Procedures p Left Inguinal Hernia Repair(Left) - Almas Anthony DO
--- NOTE | 2018-09-23 13:56 | Discharge Summary ---
PRIMARY DISCHARGE DIAGNOSIS: Incarcerated left inguinal hernia. PROCEDURE PERFORMED: Open left inguinal hernia repair with mesh. HOSPITAL COURSE: The patient is a 48-year-old male who presented to the Emergency Department for the second time in 2 days, complaining of increasing left groin pain. CT was consistent with bilateral fat-containing inguinal hernias with some stranding in the left inguinal hernia consistent with incarceration. His exam was consistent with incarceration. He was taken to the operating room later that day for open repair. He was transferred to the surgical floor for overnight observation. He had some pain overnight that was improved by the following morning. He was able to increase diet and activity. He was stable for discharge later in the day. DISCHARGE INSTRUCTIONS: Discharge home. Follow up with Dr. Anthony in 1-2 weeks. DISCHARGE MEDICATIONS: [place] 1-2 tablets every 6 hours as needed. Continue home medications, amlodipine 10 mg daily, diclofenac 75 mg b.i.d., Lexapro 20 mg daily, Lidoderm 1 patch daily, Toprol-XL 25 mg daily, telmisartan 80 mg daily, Zanaflex 4 mg daily.
== END 2018-09-22 14:35 | disposition home or self-care (01) ==
LOC: 3N 20:56 → ED 20:56 → 3N 09-21 02:20

== ENCOUNTER 2019-12-05 10:19 | Observation (INO) ==
--- NOTE | 2019-11-14 08:39 | Anesthesiology Consultation ---
Date of Service November 14, 2019 Assessment & Plan (1) Encounter for pre-operative examination: Chart Review Chart Review: Acceptable Risk for Surgery and Patient NOT seen in Pre Admission Testing Left Inguinal Hernia Repair 09/21/18= Done under GA- grade 2 view with MAC #3 (would recommend MAC 4 next time). ETT 7.5- 1 attempt atraumatic. Did require two people for masked secondary to [place] History Surgery Operation Date: 11/21/19 09:30 Proposed Procedures p Left Anterior Total Hip Arthroplasty - Cali Oviedo DO Operation Date: 11/21/19 14:10 Proposed Procedures p Left Anterior Total Hip Arthroplasty - Cali Oviedo DO Height/Weight Height: 5 ft 6 in Weight: 86.183 kg Allergies Allergy/AdvReac Type Severity Reaction Status Date / Time Sulfa (Sulfonamide Allergy Mild Nausea Verified 11/14/19 08:45 Antibiotics) Medications Home Medications Medication Instructions Recorded Confirmed Last Taken lidocaine [Lidoderm] 1 patch TOP DAILY PRN 09/19/18 11/13/19 Unknown ibuprofen 200 mg PO Q6H PRN 01/07/19 11/13/19 01/07/19 09:00 400 mg buspirone 10 mg tablet 10 mg PO TID #90 tab 04/29/19 11/13/19 Unknown amlodipine 10 mg tablet 10 mg PO QAM #90 tab 06/17/19 11/13/19 Unknown telmisartan 80 mg tablet 80 mg PO QAM #90 tab 07/28/19 11/13/19 Unknown tramadol 50 mg tablet 50 mg PO Q6H PRN #30 tab 10/28/19 11/13/19 Unknown escitalopram oxalate [Lexapro] 20 mg PO HS 11/13/19 11/13/19 Unknown metoprolol succinate [Toprol XL] 25 mg PO QAM 11/13/19 11/13/19 Unknown Past Medical History Medical History (Updated 11/14/19 @ 08:50 by Anais White PA-C) Cognitive impairment MOST RECENT HEAD INJURY (5 YEARS AGO) Degenerative disc disease Depression with anxiety Hyperlipidemia Hypertension Low back pain Osteoarthritis Postconcussion syndrome LAST EVENT 5 YEARS AGO Past Family History Family History Mother Hypertension History of blood clots Father Hypertension Past Surgical History Surgical History Family history of reaction to anesthesia MOTHER-SLOW TO WAKE UP History of arthroscopy RT KNEE History of left inguinal hernia repair History of lumbar surgery L5-S1 surgery [address] Grant History of tooth extraction Social History Smoking Status: Never smoker tobacco type: smokeless tobacco Do You Dip or Chew Tobacco: Yes (4-5 CANS WEEKLY) Hx Alcohol Use: Yes Alcohol type: beer alcohol intake frequency: 0-2 drinks per day Hx Substance Use: No substance use type: does not use Testing Laboratory Results Blood Type A Negative 11/12/19 09:05 Antibody Screen NEGATIVE 11/12/19 09:05 Laboratory Tests 11/12/19 11/12/19 11/12/19 09:05 09:05 09:05 WBC 10.55 Hgb 15.4 Hct 44.1 Plt Count 322 PT 11.2 INR 1.1 APTT 30.2 Sodium 139 Potassium 4.3 Chloride 108 H Carbon Dioxide 27 BUN 18 Creatinine 1.07 Glucose 102 H Electrocardiogram Date: 11/12/19 Findings: + SB @ (59) Nonspecific T wave abnormality in inferior leads. Compared to EKG from January 07, 2019- vent rate has decreased by 34 bpm, QRS axis shifted right, nonspecific TWA in inferior leads no present. Chest X-Ray Date: 11/12/19 Findings: + NAD
--- NOTE | 2019-12-04 07:07 | History & Physical Report ---
Date of Service December 04, 2019 Assessment & Plan (1) Osteoarthritis of left hip: We will proceed with a left anterior total hip arthroplasty. Postoperatively he will be placed on aspirin for DVT prophylaxis and kept overnight in the hospital for postoperative medical management. He plans to use energy physical therapy upon discharge. Cali is a low risk for hip replacement surgery. Present on Admission?: Yes History of Present Illness Chief Complaint: Primary osteoarthritis of the left hip Primary Care Provider: Uli Kaiser MD Cali is a pleasant 49-year-old male who has been dealing with a several year history of increasing left hip pain. X-rays and clinical examination have been diagnostic for advanced osteoarthritis of the left hip. After failing conservative treatment, he has elected to proceed with a left anterior total hip arthroplasty. Allergies Allergy/AdvReac Type Severity Reaction Status Date / Time Sulfa (Sulfonamide Allergy Mild Nausea Verified 11/27/19 14:45 Antibiotics) Home Medications Home Medications Medication Instructions Recorded Confirmed Type lidocaine [Lidoderm] 1 patch TOP DAILY PRN 09/19/18 11/27/19 History ibuprofen 200 mg PO Q6H PRN 01/07/19 11/27/19 History buspirone 10 mg tablet 10 mg PO TID #90 tab 04/29/19 11/27/19 Rx amlodipine 10 mg tablet 10 mg PO QAM #90 tab 06/17/19 11/27/19 Rx telmisartan 80 mg tablet 80 mg PO QAM #90 tab 07/28/19 11/27/19 Rx escitalopram oxalate [Lexapro] 20 mg PO HS 11/13/19 11/27/19 History metoprolol succinate [Toprol XL] 25 mg PO QAM 11/13/19 11/27/19 History oxycodone-acetaminophen 5 mg-325 1 tab PO Q6H PRN #24 tab 11/26/19 11/27/19 Rx mg tablet Past Med/Surg History Medical History Cognitive impairment MOST RECENT HEAD INJURY (5 YEARS AGO) Concussion with no loss of consciousness LAST EVENT 5 YEARS AGO Degenerative disc disease Depression with anxiety Hyperlipidemia Hypertension Low back pain (Inactive) Osteoarthritis Postconcussion syndrome (Resolved) LAST EVENT 5 YEARS AGO Surgical History Family history of reaction to anesthesia MOTHER-SLOW TO WAKE UP History of arthroscopy RT KNEE History of left inguinal hernia repair History of lumbar surgery L5-S1 surgery [address] 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 Feels Safe at Home: Yes Smoking Status: Never smoker Tobacco Type: smokeless tobacco ; Second Hand Exposure: No ; Hx Alcohol Use: Yes Alcohol type: beer Hx Substance Use: No Childhood Exposure to Second-Hand Smoke: No caffeine: Yes Dental Care, Regularly: No Physical Activity Frequency: Daily Seatbelt Use: always Sunscreen Use: Yes Review of Systems Review of Systems: All systems reviewed & are unremarkable except as noted in HPI & below Physical Exam Constitutional: WD/WN, vitals as above Eyes: PERRL, conjunctivae normal, anicteric sclerae ENMT: external ear and nose normal, oropharynx normal Neck: trachea midline, no thyromegaly Respiratory: normal respiratory effort Cardiovascular: RRR, no murmur, no edema Gastrointestinal (Abdomen): normal bowel sounds, soft, nontender, no hepatosplenomegaly Musculoskeletal: Physical examination of the left hip reveals decreased range of motion with flexion, internal and external rotation. There is significant groin pain with forced internal rotation of the hip his leg lengths are essentially equal. Psychiatric: A+Ox3, euthymic affect Results & Data Results & Data ([facility]) Diagnostic Findings Radiographs of the left hip and pelvis demonstrate advanced osteoarthritis with joint space narrowing osteophyte formation and [id number] articulation. PG Care Time/CCT Total # of Minutes Spent Total Time Spent with Patient: Total time spent is greater than 50% in coordination of care (as documented) at patient's floor/unit and/or counseling patient: Coding Level of Care Code 02256 Initial Inpt Care Lvl 3 Diagnoses Osteoarthritis of left hip M16.12
[~2019-12-05 10:19] MED LIST changes: +ACETAMINOPHEN 500 MG TAB PO SCH; +BUPIVACAINE 0.5 % 5 MG/1 ML PF 10ML VIAL ONE; +CEFAZOLIN 2000MG 2,000 MG/15 ML SYR IV SCH; +FAMOTIDINE 20 MG TAB PO SCH; +GABAPENTIN 900 MG DOSE PO SCH; -HYDR12.56 PO; -IBUP-103 PO; +LR 500ML BOLUS, THEN 15ML/HR IV SCH; +LR 60ML/HR IV SCH; -NRV/10 PO; +TRANEXAMIC ACID 1,000 MG **IV Intra-op IV SCH; +TRANEXAMIC ACID 1,000 MG **IV Pre-op IV SCH; -ZNF/4 PO; +dexAMETHasone 4 MG TAB PO SCH
[2019-12-05] MEDS ORDERED: ROPIVACAINE 0.5% HCL/PF 150 MG, BUPIVACAINE 0.5% MPF 30 ML, EPINEPHrine 30MG/30ML (OR U... INFIL SCH (12:00)
[2019-12-05] MEDS ORDERED: fentaNYL citrate 100 MCG/2 ML VIAL ONE (13:02)
[2019-12-05] MEDS ORDERED: MIDAZOLAM HCL 1 MG/ML 2ML VIAL ONE ×2 (13:02→15:13)
--- NOTE | 2019-12-05 13:06 | History & Physical Bridge Note ---
Date of Service December 05, 2019 History & Physical Bridge Note I have examined the patient, reviewed the History & Physical and in the interval since the performance of the History & Physical I have noted the following changes of clinical significance: no changes noted
[2019-12-05] MEDS ORDERED: ePHEDrine sulfate 50 MG/ML AMP IV PRN (13:23)
[2019-12-05] MEDS ORDERED: ATROPINE SULFATE 0.1 MG/ML 10ML SYR IV PRN (13:23)
[2019-12-05] MEDS ORDERED: ONDANSETRON INJ 2 MG/ML 2 ML VIAL IV PRN ×2 (13:23→17:20)
[2019-12-05] MEDS ORDERED: ORTHO JOINT ANESTHETIC ONE (13:41)
[2019-12-05] MEDS ORDERED: LIDOCAINE HCL 2% 2 ML VIAL/AMP(20MG/ML) INFIL ONE (14:12)
[2019-12-05] MEDS ORDERED: PROPOFOL IV EMULSION 10 MG/ML 20 ML VIAL IV ONE ×2 (14:12→15:37)
[2019-12-05] MEDS ORDERED: ONDANSETRON INJ 2 MG/ML 2 ML VIAL ONE (14:12)
[2019-12-05] MEDS ORDERED: PHENYLEPHRINE 100MCG/ML 5ML SYR ONE (14:27)
[2019-12-05] MEDS ORDERED: ePHEDrine sulfate 50 MG/ML SYR ONE (14:27)
--- NOTE | 2019-12-05 15:36 | Operative Report ---
PG Post Operative Report Pre & Post Diagnosis Operation Date: 11/21/19 09:30 <No data on this case meets the specified criteria> Operation Date: 11/21/19 14:10 <No data on this case meets the specified criteria> Operation Date: 12/05/19 12:30 Pre-Op Diagnosis: Left Hip Degenerative Joint Disease Post-Op Diagnosis: Left Hip Degenerative Joint Disease I identified the patient and participated in the time-out.: Yes Procedure Operation Date: 11/21/19 09:30 <No data on this case meets the specified criteria> Operation Date: 11/21/19 14:10 <No data on this case meets the specified criteria> Operation Date: 12/05/19 12:30 Actual Procedures p Left Anterior Total Hip Arthroplasty(Left) - Cali Oviedo DO Surgeon Cali Oviedo DO Campus Safety Officer Cali Overton PAC Estimated Blood Loss 250 Findings Consistent with Post-Op Diagnosis Specimens Left femoral head Complications none Disposition Disposition: Recovery Room Indications Cali is a pleasant 49-year-old male who is been dealing with chronic increasing left hip and groin pain. X-rays and clinical examination were diagnostic for primary osteoarthritis of the left hip. After failing conservative treatment, he elected to proceed with a left anterior total hip arthroplasty. Description of Procedure Implants used I used a Biomet Taperloc total hip arthroplasty system with a size 5 high offset Taperloc stem, a 52 mm G7 cup with a 25mm screw, an E1 polyethylene liner, a 36 mm ceramic head with a -3 neck. Cali arrived at the hospital for the above procedure. He was seen in the preoperative holding area and the operative extremity was identified and signed. He was given a spinal anesthetic, a preoperative antibiotic, and TXA. He was then taken back to the operating room and laid on the table in the supine position. He was given basic sedation. The operative leg was secured to a Puristst leg positioner. The hip was then prepped and draped in sterile fashion. A timeout was done and the patient and the operative extremity was properly identified. An anterior approach was used. Dissection was taken down through the fascia and the tensor muscle belly was retracted laterally and the rectus was retracted medially. The circumflex vessels were identified and ligated. The capsule was then incised and tagged for later repair. The femoral neck was then cut and the femoral head was removed. The acetabulum was exposed. Time was spent doing a complete circumferential labral release. Sequential reaming of the acetabulum up to a size 51 reamer was done. Final reamings were done under fluoroscopy to ensure appropriate version. A Biomet 52 mm G7 cup was then impacted into place. A single 25 mm screw was placed. The E1 polyethylene liner was then snapped into place. Surrounding soft tissues were then injected with 100 cc of an orthopedic pain control cocktail. The proximal femur was then exposed. Sequential broaching up to a size 5 broach was done. Off that broach a size 36 head with a -3 neck was trialed. The hip was reduced and fluoroscopic images showed anatomic alignment of the implants in acceptable length. The broach was removed. The final size 5 high offset Taperloc stem was then impacted into place. A ceramic 36 mm head with a -3 neck was then impacted onto the stem and the hip was reduced. Final fluoroscopic images showed anatomic alignment of the hip. The capsule was then closed with #1 Vicryl suture. A dilute betadyne lavage was then done for 3 minutes. The joint was then irrigated with normal saline solution. The fascia was closed with #1 PDS suture. Skin was closed with 2-0 Vicryl, meron, and a Radha VAC dressing. He was then transferred to a hospital bed and taken to the post anesthesia care unit in stable condition. He tolerated the procedure well. Cali Overton PA-C, was present for the entire procedure. He was critical for patient positioning, prepping, draping, retraction exposure, wound closure and application of sterile dressing. I attest to the content of the Intraoperative Record and any orders documented therein. Any exceptions are noted below.
--- NOTE | 2019-12-05 15:46 | Fluoroscopy Report ---
FL hip LT 1V CLINICAL HISTORY: LT ANTERIORhip arthroplasty COMPARISON STUDY: None FLUOROSCOPY TIME: 21 seconds NUMBER OF FLUOROSCOPIC IMAGES: 3 FINDINGS: Image intensifier support for a total left hip arthroplasty IMPRESSION: Image intensifier support for a total left hip arthroplasty. ACT 112: Negative or not required by law. The above report was generated using voice recognition software. It may contain grammatical, syntax or spelling errors. Electronically signed by: Juan Delgado M.D. 12/05/2019 3:45 PM
--- NOTE | 2019-12-05 16:08 | Anesthesiology Progress Note ---
Date of Service December 05, 2019 Anesthesia Post Procedure Vital Signs Vital Signs: Temp Pulse Resp BP Pulse Ox 12/05/19 10:54 99.3 F 65 18 115/74 97 Pain Intensity Left Hip: Pain Intensity: 5 Lower Back: Pain Intensity: 4 Transfer of Care Handoff Completed per policy Notes Mental Status: alert / awake / arousable and participated in evaluation Patient Amnestic to Procedure: Yes Nausea / Vomiting: adequately controlled Pain: adequately controlled Airway Patency, RR, SpO2: stable & adequate BP & HR: stable & adequate Hydration State: stable & adequate Neuraxial Anesthesia: was administered and sensory block is resolving Anesthetic Complications: no major complications apparent and Pt Satisfied with anesthetic care
--- NOTE | 2019-12-05 16:21 | XRay Report ---
XR hip 1V LT w pelvis CLINICAL HISTORY: IN PACU - A/P PELVIS and LATERAL HIP COMPARISON: 05/07/2019 DISCUSSION: There are postsurgical changes of a total left hip arthroplasty. The femoral and acetabul ar components appear well seated. There are overlying skin meron. There is no dislocation. There is a small amount of air within the soft tissues consistent with recent surgery. IMPRESSION: Postsurgical changes of a total left hip arthroplasty. ACT 112: Negative or not required by law. Electronically signed by: Ashkan Barnes M.D. 12/05/2019 4:20 PM
[2019-12-05] MEDS: fentaNYL citrate 100 MCG/2 ML VIAL IV PRN ×4 (16:25→16:40)
[2019-12-05] MEDS ORDERED: bisacodyL 10 MG SUPP PR PRN (17:20)
[2019-12-05] MEDS ORDERED: METOCLOPRAMIDE HCL INJ 5 MG/ML 2 ML VIAL IV PRN (17:20)
[2019-12-05] MEDS ORDERED: NALOXONE HCL 0.4 MG/1 ML VIAL/CARP IV PRN (17:20)
[2019-12-05] MEDS ORDERED: LIDOCAINE 5% 1 PATCH TD PRN (17:20)
[2019-12-05] MEDS ORDERED: MAGNESIUM HYDROXIDE SUSP 30 ML UDC PO PRN (17:20)
[2019-12-05] MEDS: OXYCODONE HCL IR 5 MG TAB (IMMEDIATE RELEASE) PO PRN ×2 (17:32→22:22)
[2019-12-05] MEDS: KETOROLAC 30 MG/ML VIAL IV SCH ×2 (17:33→23:38)
[2019-12-05] MEDS: SODIUM CHLORIDE 0.9% 1000ML 1,000 ML IV SCH (17:42)
[2019-12-05] MEDS: HYDROmorphone INJ 0.5 MG/0.5 ML SYR IV PRN (19:44)
[2019-12-05] MEDS: CEFAZOLIN 2000MG 2,000 MG/15 ML SYR IV SCH (20:43)
[2019-12-05] MEDS: DOCUSATE SODIUM 100 MG CAP PO SCH (20:43)
[2019-12-05] MEDS: ASPIRIN 81 MG ECTAB PO SCH (20:44)
[2019-12-05] MEDS: ACETAMINOPHEN 500 MG TAB PO SCH (20:44)
[2019-12-05] MEDS ORDERED: ESCITALOPRAM OXALATE 20 MG TAB PO SCH (21:00)
[2019-12-05] MEDS ORDERED: SENNA 8.6 MG TAB PO SCH (21:00)
[2019-12-06] MEDS: HYDROmorphone INJ 0.5 MG/0.5 ML SYR IV PRN ×2 (00:52→07:33)
[2019-12-06] MEDS: CEFAZOLIN 2000MG 2,000 MG/15 ML SYR IV SCH (03:41)
[2019-12-06] MEDS: KETOROLAC 30 MG/ML VIAL IV SCH (05:07)
[2019-12-06] MEDS: SODIUM CHLORIDE 0.9% 1000ML 1,000 ML IV SCH (05:07)
[2019-12-06] MEDS: ACETAMINOPHEN 500 MG TAB PO SCH (05:07)
[2019-12-06 05:54] LABS: Basophils # (auto) 0.01 K/uL (0-0.2); Hematocrit (blood only) 36.8 % (42-52); Hemoglobin 12.2 g/dL (14.0-18.0); Immature Granulocytes # (auto) 0.07 K/uL (0.00-0.02); Immature Granulocytes % (auto) 0.3 %; Lymphocytes # (auto) 1.17 K/uL (1.2-3.4); Lymphocytes % (auto) 5.3 %; Mean Corpuscular Hemoglobin 28.6 pg (25-34); Mean Corpuscular Hgb Conc 33.2 g/dL (32-36); Mean Corpuscular Volume 86.4 fL (80-100); Mean Platelet Volume 9.4 fL (7.4-10.4); Monocytes % (auto) 5.5 %; Neutrophils # (auto) 19.45 K/uL (1.4-6.5); Neutrophils % (auto) 88.9 %; Platelet Count 299 K/uL (130-400); RDW Coefficient of Variation 12.4 % (11.5-14.5); RDW Standard Deviation 38.8 fL (36.4-46.3); Red Blood Count 4.26 M/uL (4.7-6.1)
[2019-12-06] MEDS: OXYCODONE HCL IR 5 MG TAB (IMMEDIATE RELEASE) PO PRN (05:54)
[2019-12-06] MEDS ORDERED: ROPIVACAINE 0.5% HCL/PF 150 MG, BUPIVACAINE 0.5% MPF 30 ML, EPINEPHrine 0.15 MG, Ketoro... INFIL SCH (06:00)
[2019-12-06 06:15] LABS: BUN Creatinine Ratio 13.9 (10-20); Creatinine Clr Calc Pharmacy 76.6 ml/min; Est GFR (African American) 80.8; Est GFR (Non-African American) 69.7; Potassium 4.1 mmol/L (3.5-5.1)
--- NOTE | 2019-12-06 06:53 | Orthopedic Progress Note ---
Date of Service December 06, 2019 Assessment & Plan (1) History of left hip replacement: Overall he is doing well. Is not having much pain in the left hip. He will be seen by physical therapy today for ambulation and range of motion exercises. He is on aspirin for DVT prophylaxis. He can be discharged home later today. He will follow-up with orthopedics in 2 weeks. Present on Admission?: Yes Subjective Cali was seen and examined at bedside this morning. Overall he is doing very well. He is starting to get a little pain in the hip since he has been up to the bathroom. He has no other complaints. Physical Exam Skin: On physical examination of the left hip, the Radha VAC dressing is to suction. His leg lengths are equal. He has active dorsiflexion and plantarflexion of his left ankle. Sensation is intact throughout. Results & Data ([facility]) Vital Signs (Past 12 Hours) Vital Signs Temp Pulse Resp BP BP Pulse Ox 12/06/19 03:47 36.7 C 68 14 113/72 98 12/05/19 23:48 36.5 C 75 14 106/65 95 12/05/19 20:15 36.4 C L 92 H 18 107/71 94 12/05/19 19:15 36.7 C 95 H 18 113/72 97 Laboratory Results H & H 12/06/19 Range/Units 05:28 Hgb 12.2 L (14.0-18.0) g/dL Hct 36.8 L (42-52) % Diagnostic Findings Postoperative x-rays of the left hip show the prosthesis to be in anatomic alignment without any evidence of fracture, dislocation, or loosening. PG Care Time/CCT Total # of Minutes Spent Total Time Spent with Patient: Total time spent is greater than 50% in coordination of care (as documented) at patient's floor/unit and/or counseling patient: Coding Level of Care Code None Diagnoses History of left hip replacement Z96.642
--- NOTE | 2019-12-06 06:55 | Discharge Summary ---
Date of Service December 06, 2019 Admission HPI Per Admitting Provider Cali is a pleasant 49-year-old male who has been dealing with a several year history of increasing left hip pain. X-rays and clinical examination have been diagnostic for advanced osteoarthritis of the left hip. After failing conservative treatment, he has elected to proceed with a left anterior total hip arthroplasty. Principal Diagnosis Left total hip arthroplasty Discharge Data Allergies Allergy/AdvReac Type Severity Reaction Status Date / Time Sulfa (Sulfonamide Allergy Mild Nausea Verified 12/05/19 10:48 Antibiotics) Consultations 12/06/19 08:00 Consult Case Management - Discharge Planning Routine Procedures Performed Operation Date: 11/21/19 09:30 <No data on this case meets the specified criteria> Operation Date: 11/21/19 14:10 <No data on this case meets the specified criteria> Operation Date: 12/05/19 12:30 Actual Procedures p Left Anterior Total Hip Arthroplasty(Left) - Cali Oviedo DO Ordered Studies 12/05/19 12:30 FL fluoroscopy <1hr Routine FL hip LT 1V Routine Hospital Course (1) History of left hip replacement: On December 05, 2019 Cali arrived at [facility] and underwent a left anterior total hip arthroplasty without complication. He had a spinal anesthetic. Postoperatively he was started on aspirin for DVT prophylaxis and transferred to the general orthopedic floors. His hospital course was uneventful. On postop day #1 his H&H was stable and his pain was well controlled. He was able to participate well with physical therapy doing ambulation and range of motion exercises. He was then discharged to home. He will follow-up with orthopedics in 2 weeks. Total Time Total Time Spent Total Time Spent (In Minutes): 20 Discharge Plan Discharge Items Patient Disposition: Home - Home Health Services Reason For Visit: Left Hip Degenerative Joint Disease Discharge Diagnosis: Left total hip arthroplasty Activity: As commented below Non-emergency contact: Surgeon Call non-emergency contact if: your wound has increased redness and your wound has increased drainage Follow-up/Referrals: Uli Kaiser MD [Primary Care Provider] - Diet: Regular Addtl Attending Provider Instructions: Activity and Therapy Recommendations: * If you are using [facility] then therapy will be provided at your home until they feel you have accomplished all of your goals. * If you are using [facility] then Physical Therapy will be provided until they feel you are ready to start Outpatient Physical Therapy. * If you are not using home therapy then Outpatient Physical Therapy should start about 3-5 days from your day of surgery. Therapy will last about 6-10 weeks * You were shown a series of exercises in the hospital. Do these exercises three times each day including the exercises you were shown in physical therapy. * Get up and walk several times each day.~ For the first four weeks, try not to stand or walk for more than one hour at a time. If you do stand or walk for more than one hour, you will not hurt anything, but your leg will likely swell.~~ * As you feel comfortable, you may change from the walker or crutches to a cane and~then to independent walking. Medications: * Narcotic You will likely be sent home from the hospital with a prescription for the narcotic pain medication that worked best throughout your stay. * Aspirin Most patients will be required to take Aspirin 81mg twice a day for 6 weeks after surgery. This is obtained [id number] and a prescription is not necessary. * Other medications may be prescribed for specific circumstances. If you have any questions, please call the office at . * Resume previous home medications unless otherwise instructed TEDs/Elastic Stockings: The white elastic stockings help limit swelling and prevent blood clots from forming in your legs. The more you wear them, the more they work. Wear them for six weeks. Dressing Care: You will likely have a purple VAC dressing after surgery. This dressing will keep the incision dry and promote early healing. After about 7 days the batteries will wear out and the VAC will lose suction. Simply remove the dressing at that time and throw everything away, including the small suction machine. Then, you may leave the meron open to air or cover them with a dry dressing so they do not rub on your pants. The meron will be removed at your 2 week follow-up appointment. Showering: You may shower immediately with the purple VAC dressing. Let the shower spray hit your opposite side and slowly pat the plastic dry. Do not soak the dressing. After the dressing is removed you may shower normally with the meron exposed. Let soapy water run over the meron and pat them dry. Things To Watch For: * Drainage from the incision site that occurs more than one week after your surgery. * Increased redness at the incision site. * Fever above 102 degrees Fahrenheit. * Unusual chest pain or shortness of breath. * Call [facility] at with any of the above problems Follow-Up Visit: Follow-up with Dr. Oviedo's PA (Cali Overton) 2-3 weeks after your day of surgery. He will remove your meron and answer any questions. If you have any additional questions or concerns, Dr Oviedo is usually in the office at the same time and will be available An appointment was probably scheduled when you signed-up for surgery in the office. If you have any questions call Office Instructions: More detailed instructions as well as Frequently Asked Questions were provided in a folder by our office when you signed-up for surgery. Please review these instructions when you get home. If you have any further questions or concerns, please feel free to call the office at [phone] Pending Studies at Discharge: No Stand-Alone Forms: My [facility], Smoking Cessation Medications and DC Order Prescriptions: New aspirin 81 mg Tablet,Delayed Release (Dr/Ec) 81 mg PO BID 42 Days Qty: 0 RF: 0 Continued buspirone 10 mg tablet 10 mg PO TID Qty: 90 RF: 5 amlodipine 10 mg tablet 10 mg PO QAM Qty: 90 RF: 3 telmisartan 80 mg tablet 80 mg PO QAM Qty: 90 RF: 3 ibuprofen 200 mg Tablet 200 mg PO Q6H PRN (Reason: Pain) RF: 0 lidocaine [Lidoderm] 5 % adhesive patch,medicated 1 patch TOP DAILY PRN (Reason: Pain) RF: 0 metoprolol succinate [Toprol XL] 25 mg tablet extended release 24 hr 25 mg PO QAM RF: 0 escitalopram oxalate [Lexapro] 20 mg tablet 20 mg PO HS RF: 0 oxycodone-acetaminophen [Percocet] 5-325 mg tablet 1 tab PO Q6H PRN (Reason: pain) Qty: 40 RF: 0 Discharge Orders: Discharge Order (Routine); Ordered 12/06/19 Ordered By: Cali Oviedo Admission Data Admit Date/Time: 12/05/19 16:00 Attending Provider: Cali Oviedo Admit Provider: Cali Oviedo Primary Care Provider: Uli Kaiser Coding Level of Care Code D/C Day Management <30 mins Diagnoses History of left hip replacement Z96.642
[2019-12-06] MEDS ORDERED: dexAMETHasone 4 MG TAB PO SCH (08:00)
[2019-12-06] MEDS: DOCUSATE SODIUM 100 MG CAP PO SCH (08:38)
[2019-12-06] MEDS: ASPIRIN 81 MG ECTAB PO SCH (08:38)
[2019-12-06] MEDS ORDERED: TELMISARTAN 40 MG TAB PO SCH (09:00)
[2019-12-06] MEDS ORDERED: METOPROLOL SUCC 25MG EXT REL TAB PO SCH (09:00)
[2019-12-06] MEDS ORDERED: MULTIVITAMIN TAB PO SCH (09:00)
[2019-12-06] MEDS ORDERED: AMLODIPINE BESYLATE 5 MG TAB PO SCH (09:00)
== END 2019-12-06 11:00 | disposition home health service (06) ==
LOC: ASU 10:19 → 3E 10:19

== ENCOUNTER 2022-04-26 19:22 | Inpatient (IN) ==
[2022-04-26] MEDS ORDERED: ONDANSETRON INJ 2 MG/ML 2 ML VIAL IV STA ×2 (19:45→21:50)
[2022-04-26 21:09] LABS: Basophils # (auto) 0.06 K/uL (0-0.2); Basophils % (auto) 0.3 %; Eosinophils # (auto) 0.41 K/uL (0-0.50); Hematocrit (blood only) 41.8 % (40.1-51.0); Hemoglobin 14.2 g/dl (14.0-18.0); Immature Granulocytes # (auto) 0.15 K/uL (0.00-0.02); Immature Granulocytes % (auto) 0.7 %; Lymphocytes # (auto) 2.02 K/uL (1.2-3.4); Lymphocytes % (auto) 9.8 %; Mean Corpuscular Hemoglobin 29.4 pg (25.0-34.0); Mean Corpuscular Volume 86.5 fL (80.0-100.0); Monocytes # (auto) 1.92 K/uL (0.24-0.82); Monocytes % (auto) 9.4 %; Neutrophils # (auto) 15.97 K/uL (1.4-6.5); Neutrophils % (auto) 77.8 %; Platelet Count 267 K/uL (130-400); RDW Coefficient of Variation 12.6 % (11.5-14.5); RDW Standard Deviation 39.9 fL (36.4-46.3); Red Blood Count 4.83 M/uL (4.63-6.08); White Blood Count 20.53 K/ul (4.8-10.8)
[2022-04-26 21:26] LABS: Albumin Globulin Ratio 1.4 (0.9-2); Albumin Level 4.2 gm/dl (3.4-5.0); Bilirubin,Total 1.1 mg/dl (0.2-1.0); Calcium 9.3 mg/dl (8.5-10.1); Creatinine Clr Calc Pharmacy 66.2 ml/min; Est GFR (African American) 64.1 ml/min; Est GFR (Non-African American) 55.3 ml/min; Globulin 2.9 gm/dl (2.5-4.0); Potassium 4.1 mmol/L (3.5-5.1); Total Protein 7.1 gm/dl (6.0-8.3)
[2022-04-26] MEDS ORDERED: MoRPHine SULFATE 4 MG/ML 1 ML CARP\\VIAL IV STA ×2 (21:50→23:21)
[2022-04-26] MEDS ORDERED: SODIUM CHLORIDE 0.9% 1000ML 500 ML IV ONE (21:50)
--- NOTE | 2022-04-26 21:52 | Emergency Department Note ---
Impression & Plan Kidney stone ADMIT ED Provider Note HPI: The patient is a 51-year-old male who presents the emergency department for second day in a row over concern for right flank pain and kidney stone. Patient was seen in the emergency department yesterday, diagnosed with a 4 mm o bstructing kidney stone, he was evaluated at the bedside by urology and ultimately discharged home with analgesia with plan for outpatient follow-up. Patient's pain has worsened since he was discharged, states that the oral medications are not helping with his pain and therefore he came back to the emergency department tonight for further assessment. On arrival here to the ED the patient is hemodynamically stable, he is in mild distress secondary to pain on my initial assessment but otherwise is saturating well on room air and hemodynamically stable. ROS: -: R flank pain *10 point review systems was conducted and is otherwise negative unless stated above *Outpatient medications and allergy history reviewed PE: General: Alert HEENT: Normocephalic, trachea midline Eyes: Extraocular eye movement is intact, no scleral erythema Pulmonary: Clear to auscultation bilaterally, no wheezing Cardio: Regular rate and rhythm GI: Abdomen is soft, nontender : No suprapubic tenderness, there is moderate right flank tenderness to palpation MSK: No evidence of trauma or malformation of the extremities, no edema Skin: No evidence of rash Neuro: Alert, no focal deficits Psychiatric: Cooperative laboratory monitor: - An order was placed for continuous cardiac monitoring - Patient was noted to be in sinus rhythm with a rate of 85 Interventions provided in ED: -IV morphine x2, IV Zofran, IV ceftriaxone CT ABDOMEN & PELVIS Without Contrast: Comparison: 11/22/2018. Minimal left lower lobe subpleural atelectasis otherwise clear lung bases. Normal cardiac size. Low-attenuation liver lesions, largest seen in the anterior aspect of the left liver lobe, likely cyst and measuring 1.7 cm. Remainder of the liver lesions measure less than 5 mm and too small to characterize, likely benign such as simple cyst in the absence of known neoplasm. Normal spleen, pancreas and bilateral adrenal glands. Mild right hydronephrosis and hydroureter with a tiny stones seen just beyond the UV junction measuring approximately 2.7 mm. Mild right perinephric stranding otherwise unremarkable right kidney. 2 stones seen within the left kidney largest measuring 2.4 mm. Otherwise normal left kidney. Atherosclerotic disease of aorta with no aneurysm. Minimal hiatal hernia otherwise unremarkable stomach. Normal small bowel. Increased fecal debris within the right and transverse colon, the descending colon is decompressed. The appendix is normal. Normal urinary bladder and prostate gland. Right-sided fat-containing inguinal hernia. Degenerative disease of the spine. Radiologist: Tracy Nguyễn MD Medical Decision Making: Patient presented to the emergency department with some intractable right flank pain after being diagnosed with a kidney stone yesterday, patient does have a persistent leukocytosis, repeat CT imaging shows evidence of a 2.7 mm stone at the left UV junction with mild right perinephric stranding and mild right hydronephrosis and hydroureter. On my reassessment patient states he is having intractable pain, his lab work shows persistent leukocytosis greater than 20,000, urinalysis does not show evidence of infection. Patient is noted to be on steroid therapy for chronic back pain. This is possibly a source of his leukocytosis as well, however given the patient's pain with perinephric stranding on CT imaging and leukocytosis, blood cultures were drawn and he was treated prophylactically with ceftriaxone. Patient states that he does not feel well for discharge and therefore I did discuss the case with on-call urology, Dr. Trujillo, who is in agreement for consultation tomorrow and recommends admission to the medicine service. Case was then discussed with the on-call hospitalist, Dr. Peoples, and the patient was placed for admission in stable condition for further care and urology consultation. Diagnosis: 1. Acute flank pain, right-sided 2. Right-sided kidney stone with hydronephrosis 3. Leukocytosis Disposition: Admission Juan Victor DO Emergency Medicine Past Med/Surg History Medical History Alcohol use disorder resolved per pt Arthritis lumbar region Cognitive impairment MOST RECENT HEAD INJURY (5 YEARS AGO) on occasion Concussion with no loss of consciousness LAST EVENT 5 YEARS AGO Degenerative disc disease Depression with anxiety History of COVID-27 Jul 2019 > can't recall symptoms Hyperlipidemia Hypertension follows Dr. Bacon Low back pain Osteoarthritis Postconcussion syndrome LAST EVENT 5 YEARS AGO Surgical History Family history of reaction to anesthesia MOTHER-SLOW TO WAKE UP History of arthroscopy RT KNEE History of colonoscopy History of left hip replacement (~11/2019) History of left inguinal hernia repair History of lumbar surgery L5-S1 surgery [address] Grant History of tooth extraction Family History Mother Hypertension History of blood clots Father Hypertension Denies family history of Ovarian cancer Prostate cancer Myocardial infarction Breast cancer Colorectal cancer Social History Smoking Status: Never smoker Second Hand Exposure: No; Hx Alcohol Use: No Hx Substance Use: No Preferred Language: Romanian Communication Ability: Effective Visual Impairment: No Limitations Hearing Ability: Normal Benefits Consulting Analyst Required: No Beliefs That Will Affect Care: None marital status: Current Living Situation: Spouse current occupational status: employed 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 Feels Safe at Home: Yes Childhood Exposure to Second-Hand Smoke: No caffeine: Yes Dental Care, Regularly: No Physical Activity Frequency: Daily Seatbelt Use: always Sunscreen Use: Yes Assistive Devices: Walker Allergies Allergies Allergy/AdvReac Type Severity Reaction Status Date / Time Sulfa (Sulfonamide Allergy Mild Nausea Verified 04/20/22 13:09 Antibiotics) Home Meds Home Medications Medication Instructions Recorded Confirmed aspirin 81 mg capsule 81 mg PO QAM 12/06/21 04/27/22 metoprolol succinate 25 mg 25 mg PO QAM 12/06/21 04/27/22 tablet,extended release 24 hr omeprazole magnesium 20 mg 20 mg PO DAILY PRN Acid Reflux 12/06/21 04/27/22 tablet,delayed release (Prilosec OTC) rosuvastatin 10 mg tablet 10 mg PO QAM 04/27/22 04/27/22 Previous Rx's Medication Instructions Recorded amlodipine 10 mg tablet 10 mg PO QAM #90 tabs 06/30/21 escitalopram oxalate 20 mg tablet 20 mg PO HS #90 tabs 08/22/21 (Lexapro) telmisartan 80 mg tablet 80 mg PO QAM #90 tabs 09/06/21 buspirone 10 mg tablet 10 mg PO TID #90 tabs 12/12/21 methocarbamol 750 mg tablet 1,500 mg PO Q8H PRN spasm #90 tabs 03/07/22 prednisone 20 mg tablet 20 mg PO .COMPLEX #20 tabs 04/14/22 tizanidine 4 mg tablet 4 mg PO Q8H PRN muscle spasticity 04/20/22 #30 tabs tramadol 50 mg tablet 50 mg PO Q8H PRN pain #30 tabs 04/20/22 ketorolac 10 mg tablet 10 mg PO Q6H 7 days #28 tabs 04/25/22 oxycodone 5 mg tablet 5 mg PO Q4H PRN pain #15 tabs 04/25/22 tamsulosin 0.4 mg capsule (Flomax) 0.4 mg PO DAILY #7 caps 04/25/22 Results & Data (ED) Vital Signs Vital Signs - 24 hr 04/26/22 19:42 04/26/22 22:58 04/27/22 00:00 Temperature 36.8 C Temperature Source Temporal Artery Scan Pulse Rate 91 H Pulse Rate [Right] 78 Pulse Rate from SpO2 Sensor Respiratory Rate 18 16 Blood Pressure 154/100 H 128/81 Blood Pressure [Right Arm] 144/87 H Blood Pressure Mean 118 96 Blood Pressure Mean [Right Arm] 106 Pulse Oximetry 95 98 Oxygen Delivery Method Room Air Room Air Sepsis Recent Fever Within 48 Hours No Sepsis New/Unexplained Change in Mental Status No Sepsis Action Taken by Nursing No Action Required 04/27/22 00:00 04/27/22 00:30 04/27/22 01:00 Temperature Temperature Source Pulse Rate 84 85 Pulse Rate [Right] Pulse Rate from SpO2 Sensor 85 83 Respiratory Rate 16 16 Blood Pressure 138/88 Blood Pressure [Right Arm] Blood Pressure Mean 104 Blood Pressure Mean [Right Arm] Pulse Oximetry 94 96 Oxygen Delivery Method Sepsis Recent Fever Within 48 Hours Sepsis New/Unexplained Change in Mental Status Sepsis Action Taken by Nursing 04/27/22 01:00 04/27/22 01:30 Temperature Temperature Source Pulse Rate 86 77 Pulse Rate [Right] Pulse Rate from SpO2 Sensor 86 79 Respiratory Rate 18 17 Blood Pressure Blood Pressure [Right Arm] Blood Pressure Mean Blood Pressure Mean [Right Arm] Pulse Oximetry 95 95 Oxygen Delivery Method Sepsis Recent Fever Within 48 Hours Sepsis New/Unexplained Change in Mental Status Sepsis Action Taken by Nursing Laboratory Data Result diagrams: 04/26/22 20:54 04/26/22 20:54 Lab Results 04/26/22 04/26/22 04/26/22 Range/Units 20:54 20:54 21:53 WBC 20.53 H (4.8-10.8) K/ul RBC 4.83 (4.63-6.08) M/uL Hgb 14.2 (14.0-18.0) g/dl Hct 41.8 (40.1-51.0) % MCV 86.5 (80.0-100.0) fL MCH 29.4 (25.0-34.0) pg MCHC 34.0 (32.0-36.0) g/dL RDW Std Deviation 39.9 (36.4-46.3) fL RDW Coeff of Brooks 12.6 (11.5-14.5) % Plt Count 267 (130-400) K/uL MPV 9.0 L (9.4-12.4) fL Immature Gran % (Auto) 0.7 % Neut % (Auto) 77.8 % Lymph % (Auto) 9.8 % Millard % (Auto) 9.4 % Eos % (Auto) 2.0 % Baso % (Auto) 0.3 % Neut # (Auto) 15.97 H (1.4-6.5) K/uL Lymph # (Auto) 2.02 (1.2-3.4) K/uL Millard # (Auto) 1.92 H (0.24-0.82) K/uL Eos # (Auto) 0.41 (0-0.50) K/uL Baso # (Auto) 0.06 (0-0.2) K/uL Immature Gran # (Auto) 0.15 H (0.00-0.02) K/uL Sodium 130 L (136-145) mmol/L Potassium 4.1 (3.5-5.1) mmol/L Chloride 94 L (98-107) mmol/L Carbon Dioxide 30 (21-32) mmol/L Anion Gap 6 (3-11) BUN 19 (6-23) mg/dl Creatinine 1.46 H D (0.6-1.4) mg/dl Est Cr Clr Drug Dosing 66.2 ml/min Est GFR ( Amer) 64.1 ml/min Est GFR (Non-Af Amer) 55.3 ml/min BUN/Creatinine Ratio 13.0 (10-20) Glucose 105 H (70-99(Fasting)) mg/dl Lactate 1.1 (0.4-2.0) mmol/L Calcium 9.3 (8.5-10.1) mg/dl Total Bilirubin 1.1 H D (0.2-1.0) mg/dl AST 19 (13-39) U/L ALT 16 (7-52) U/L Alkaline Phosphatase 63 (34-104) U/L Total Protein 7.1 (6.0-8.3) gm/dl Albumin 4.2 (3.4-5.0) gm/dl Globulin 2.9 (2.5-4.0) gm/dl Albumin/Globulin Ratio 1.4 (0.9-2) Urine Color Urine Appearance (Clear) Urine pH (4.5-7.5) Ur Specific Garland (1.000-1.030) Urine Protein (Negative) Urine Glucose (UA) (Negative) Urine Ketones (Negative) Urine Blood (Negative) Urine Nitrite (Negative) Urine Bilirubin (Negative) Urine Urobilinogen (Negative) Ur Leukocyte Esterase (Negative) SARS-CoV-2, RNA, NAAT (NEGATIVE) 04/26/22 04/27/22 Range/Units Unknown Unknown WBC (4.8-10.8) K/ul RBC (4.63-6.08) M/uL Hgb (14.0-18.0) g/dl Hct (40.1-51.0) % MCV (80.0-100.0) fL MCH (25.0-34.0) pg MCHC (32.0-36.0) g/dL RDW Std Deviation (36.4-46.3) fL RDW Coeff of Brooks (11.5-14.5) % Plt Count (130-400) K/uL MPV (9.4-12.4) fL Immature Gran % (Auto) % Neut % (Auto) % Lymph % (Auto) % Millard % (Auto) % Eos % (Auto) % Baso % (Auto) % Neut # (Auto) (1.4-6.5) K/uL Lymph # (Auto) (1.2-3.4) K/uL Millard # (Auto) (0.24-0.82) K/uL Eos # (Auto) (0-0.50) K/uL Baso # (Auto) (0-0.2) K/uL Immature Gran # (Auto) (0.00-0.02) K/uL Sodium (136-145) mmol/L Potassium (3.5-5.1) mmol/L Chloride (98-107) mmol/L Carbon Dioxide (21-32) mmol/L Anion Gap (3-11) BUN (6-23) mg/dl Creatinine (0.6-1.4) mg/dl Est Cr Clr Drug Dosing ml/min Est GFR ( Amer) ml/min Est GFR (Non-Af Amer) ml/min BUN/Creatinine Ratio (10-20) Glucose (70-99(Fasting)) mg/dl Lactate (0.4-2.0) mmol/L Calcium (8.5-10.1) mg/dl Total Bilirubin (0.2-1.0) mg/dl AST (13-39) U/L ALT (7-52) U/L Alkaline Phosphatase (34-104) U/L Total Protein (6.0-8.3) gm/dl Albumin (3.4-5.0) gm/dl Globulin (2.5-4.0) gm/dl Albumin/Globulin Ratio (0.9-2) Urine Color Yellow Urine Appearance Clear (Clear) Urine pH 5.5 (4.5-7.5) Ur Specific Garland 1.026 (1.000-1.030) Urine Protein Negative (Negative) Urine Glucose (UA) Negative (Negative) Urine Ketones Trace H (Negative) Urine Blood Negative (Negative) Urine Nitrite Negative (Negative) Urine Bilirubin Negative (Negative) Urine Urobilinogen Negative (Negative) Ur Leukocyte Esterase Negative (Negative) SARS-CoV-2, RNA, NAAT NEGATIVE (NEGATIVE) Administered Medications Discontinued Medications Sodium Chloride (Nss 1000ml) 500 mls @ 999 mls/hr IV .Q31M ONE Stop: 04/26/22 22:20 Last Infusion: 04/26/22 23:20 Dose: 0 mls/hr Documented By: Admin: 04/26/22 22:35 Dose: 999 mls/hr Documented By: AFSHAN Ceftriaxone Sodium (Rocephin) 2,000 mg in 70 mls @ 140 mls/hr IV NOW STA Stop: 04/27/22 00:21 Last Infusion: 04/27/22 00:43 Dose: 0 mls/hr Documented By: Admin: 04/26/22 23:58 Dose: 140 mls/hr Documented By: TERESA Morphine Sulfate (Morphine Sulfate 4 Mg/Ml 1 Ml Carp\Vial) 4 mg IV NOW STA Stop: 04/26/22 21:51 Last Admin: 04/26/22 22:07 Dose: 4 mg Documented By: TERESA Morphine Sulfate (Morphine Sulfate 4 Mg/Ml 1 Ml Carp\Vial) 4 mg IV NOW STA Stop: 04/26/22 23:22 Last Admin: 04/26/22 23:26 Dose: 4 mg Documented By: LIANNA Morphine Sulfate (Morphine Sulfate 4 Mg/Ml 1 Ml Carp\Vial) Confirm Administered Dose 4 mg .ROUTE .STK-MED ONE Stop: 04/27/22 01:50 Last Admin: 04/27/22 01:52 Dose: 4 mg Documented By: LIANNA Ondansetron HCl (Ondansetron Inj 2 Mg/Ml 2 Ml Vial) 4 mg IV NOW STA Stop: 04/26/22 19:46 Last Admin: 04/26/22 22:04 Dose: Not Given Documented By: AFSHAN Ondansetron HCl (Ondansetron Inj 2 Mg/Ml 2 Ml Vial) 4 mg IV NOW STA Stop: 04/26/22 21:51 Last Admin: 04/26/22 22:06 Dose: 4 mg Documented By: TERESA Discharge Plan Visit Data Chief Complaint: Kidney Stone Stated Complaint: KIDNEY STONE NOT PASS,NAUSEA,ABDOMINAL PAIN ED Provider: Juan Victor Discharge Problem: Kidney stone Patient Disposition: Admitted As Inpatient Forms Stand Alone Forms: [facility] Prescriptions Prescriptions: No Action tizanidine 4 mg tablet 4 mg PO Q8H PRN (Reason: muscle spasticity) Qty: 30 0RF tramadol 50 mg tablet 50 mg PO Q8H PRN (Reason: pain) Qty: 30 0RF amlodipine 10 mg tablet 10 mg PO QAM Qty: 90 3RF escitalopram oxalate [Lexapro] 20 mg tablet 20 mg PO HS Qty: 90 3RF telmisartan 80 mg tablet 80 mg PO QAM Qty: 90 3RF buspirone 10 mg tablet 10 mg PO TID Qty: 90 3RF Rx Instructions: TAKE ONE TABLET BY MOUTH 3 TIMES A DAY methocarbamol 750 mg tablet 1,500 mg PO Q8H PRN (Reason: spasm) Qty: 90 0RF prednisone 20 mg tablet 20 mg PO .COMPLEX Qty: 20 0RF Rx Instructions: 20 mg PO; 3 tablets PO x 3 days; 2 tablets PO x 3 days; 1 tablets PO x 3 days; 1/2 tablet PO x 4 days tamsulosin [Flomax] 0.4 mg capsule 0.4 mg PO DAILY Qty: 7 0RF oxycodone 5 mg tablet 5 mg PO Q4H PRN (Reason: pain) Qty: 15 0RF ketorolac 10 mg tablet 10 mg PO Q6H 7 Days Qty: 28 0RF rosuvastatin 10 mg tablet 10 mg PO QAM aspirin 81 mg Capsule 81 mg PO QAM metoprolol succinate 25 mg tablet extended release 24 hr 25 mg PO QAM Rx Instructions: TAKE ONE TABLET BY MOUTH EVERY MORNING omeprazole magnesium [Prilosec OTC] 20 mg tablet,delayed release (DR/EC) 20 mg PO DAILY PRN (Reason: Acid Reflux) Referrals Referrals: Uli Kaiser MD [Primary Care Provider] -
[2022-04-26 23:24] LABS: Appearance Urine Clear (Clear); Bilirubin Urine Negative (Negative); Blood Urine Negative (Negative); Color Urine Yellow; Glucose Urine UA Negative (Negative); Ketones Urine Trace (Negative); Leukocyte Esterase Urine Negative (Negative); Nitrite Urine Negative (Negative); Protein Urine Negative (Negative); Specific Gravity Urine 1.026 (1.000-1.030); Urobilinogen Urine Negative (Negative); pH Urine 5.5 (4.5-7.5)
[2022-04-26] MEDS ORDERED: cefTRIAXone SODIUM 2,000 MG/70 ML BAG IV STA (23:52)
--- NOTE | 2022-04-27 01:09 | History & Physical Report ---
Date of Service April 27, 2022 Assessment & Plan (1) Kidney stone: Plan: 51-year-old male presenting with persistent right flank pain. Found to have 2.4 mm stone at the right UV J. Some perinephric stranding. UA does not suggest infection. Admit to medical Strain urine Pain control with morphine as needed Zofran as needed for nausea Continue Flomax 0.4 mg p.o. daily Continue ceftriaxone 2 g IV daily Urology consult appreciated (2) Hyperlipidemia: Plan: Chronic. Continue Crestor 10 mg p.o. daily (3) Depression with anxiety: Plan: Chronic. Stable on medications. Continue buspirone 10 mg p.o. 3 times daily Continue Lexapro 20 mg p.o. nightly (4) Hypertension: Plan: Chronic. Blood pressure presently 138/88 We will hold telmisartan in setting of slightly increased creatinine Continue amlodipine 10 mg p.o. every morning Continue metoprolol 25 mg p.o. every morning Continue to monitor blood pressure FENLR at 125 mL/h x 2 L, monitor electrolytes and replete as needed, n.p.o. for now. Bowel regimen to include MiraLAX and senna. Patient appears constipated on imaging Prophylaxislow risk for DVT Codefull Dispoadmit to medical History of Present Illness Chief Complaint: Right flank pain Primary Care Provider: Uli Kaisre MD Cali Adams is a 51yo male with history of HTN, HLP, Depression/Anxiety presenting with right flank pain. Patient was seen in the ER on 04/25/22 with similar pain. Patient found to have an obstructing 4mm calculus of the right ureterovesicular junction. He was assessed by Urology during that visit. UA did not suggest infection. Patient was ultimately discharged home with conservative therapies - Flomax, Toradol and Oxycodone PRN. He returns today with persistent pain. Pain is in the right flank and testicle. Severe, minimal improvement with PO Toradol. He has only passed a small amount of urine. He has had some nausea as well. He denies fever but has been having some chills. Denies chest pain, cough, SOB, abdominal pain, diarrhea. Patient has history of renal stone in the past and had Urological intervention for removal. Uncertain of when. No additional complaints at this time. In the Er he is afebrile, HD stable ER Course: Ceftriaxone, Morphine, Allergies Allergy/AdvReac Type Severity Reaction Status Date / Time Sulfa (Sulfonamide Allergy Mild Nausea Verified 04/20/22 13:09 Antibiotics) Home Medications Medication Instructions Recorded Confirmed Type amlodipine 10 mg tablet 10 mg PO QAM #90 tabs 06/30/21 04/27/22 Rx escitalopram oxalate 20 mg tablet 20 mg PO HS #90 tabs 08/22/21 04/27/22 Rx (Lexapro) telmisartan 80 mg tablet 80 mg PO QAM #90 tabs 09/06/21 04/27/22 Rx aspirin 81 mg capsule 81 mg PO QAM 12/06/21 04/27/22 History metoprolol succinate 25 mg 25 mg PO QAM 12/06/21 04/27/22 History tablet,extended release 24 hr omeprazole magnesium 20 mg 20 mg PO DAILY PRN Acid Reflux 12/06/21 04/27/22 History tablet,delayed release (Prilosec OTC) buspirone 10 mg tablet 10 mg PO TID #90 tabs 12/12/21 04/27/22 Rx methocarbamol 750 mg tablet 1,500 mg PO Q8H PRN spasm #90 tabs 03/07/22 04/27/22 Rx prednisone 20 mg tablet 20 mg PO .COMPLEX #20 tabs 04/14/22 04/27/22 Rx tizanidine 4 mg tablet 4 mg PO Q8H PRN muscle spasticity 04/20/22 04/27/22 Rx #30 tabs tramadol 50 mg tablet 50 mg PO Q8H PRN pain #30 tabs 04/20/22 04/27/22 Rx ketorolac 10 mg tablet 10 mg PO Q6H 7 days #28 tabs 04/25/22 04/27/22 Rx oxycodone 5 mg tablet 5 mg PO Q4H PRN pain #15 tabs 04/25/22 04/27/22 Rx tamsulosin 0.4 mg capsule (Flomax) 0.4 mg PO DAILY #7 caps 04/25/22 04/27/22 Rx rosuvastatin 10 mg tablet 10 mg PO QAM 04/27/22 04/27/22 History Past Med/Surg History Medical History Alcohol use disorder resolved per pt Arthritis lumbar region Cognitive impairment MOST RECENT HEAD INJURY (5 YEARS AGO) on occasion Concussion with no loss of consciousness LAST EVENT 5 YEARS AGO Degenerative disc disease Depression with anxiety History of COVID-27 Jul 2019 > can't recall symptoms Hyperlipidemia Hypertension follows Dr. Bacon Low back pain Osteoarthritis Postconcussion syndrome LAST EVENT 5 YEARS AGO Surgical History Family history of reaction to anesthesia MOTHER-SLOW TO WAKE UP History of arthroscopy RT KNEE History of colonoscopy History of left hip replacement (~11/2019) History of left inguinal hernia repair History of lumbar surgery L5-S1 surgery [address] Grant History of tooth extraction Family History Mother Hypertension History of blood clots Father Hypertension Denies family history of Ovarian cancer Prostate cancer Myocardial infarction Breast cancer Colorectal cancer Social History Smoking Status: Never smoker Second Hand Exposure: No; Hx Alcohol Use: No Hx Substance Use: No Preferred Language: Wallisian Communication Ability: Effective Visual Impairment: No Limitations Hearing Ability: Normal Tattoo Artist Required: No Beliefs That Will Affect Care: None marital status: Current Living Situation: Spouse current occupational status: employed 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 Feels Safe at Home: Yes Childhood Exposure to Second-Hand Smoke: No caffeine: Yes Dental Care, Regularly: No Physical Activity Frequency: Daily Seatbelt Use: always Sunscreen Use: Yes Assistive Devices: Walker Review of Systems Review of Systems: All systems reviewed & are unremarkable except as noted in HPI & below Physical Exam Physical Exam: General: patient resting, NAD, non-toxic in appearance, AA&O x 4 Skin: warm, dry, intact, no rashes or lesions HEENT: NC/AT, PERRL, EOMI, anicteric sclera, conjunctiva without injection, external ear normal to inspection and nontender, nares patent, moist mucus membranes, dentition intact, no oropharyngeal lesions, neck supple, trachea midline, no LAD, no thyromegaly, no JVD Heart: +S1/S2, regular, no m/r/g Lungs: equal air entry bilaterally, no rales/rhonchi/wheezes Abd: +BS, soft, diffusely tender with no rebound/guarding/peritoneal signs, some distention, tympanic to percussion Ext: warm, 2+ pulses in UE/LE bilaterally, no clubbing/cyanosis or edema Neuro: nonfocal, patient AA&O x 4, speech intact, no facial droop, moving all extremities on command with equal strength 5/5 Results & Data Results & Data ([facility]) Vital Signs (Past 12 Hours) Vital Signs Temp Pulse Pulse Resp BP BP Pulse Ox 04/26/22 22:58 78 16 144/87 H 98 04/26/22 19:42 36.8 C 91 H 18 154/100 H 95 O2 Del Method 04/26/22 22:58 Room Air 04/26/22 19:42 Room Air Laboratory Results Laboratory Results WBC 20.53 K/ul (4.8-10.8) H 04/26/22 20:54 RBC 4.83 M/uL (4.63-6.08) 04/26/22 20:54 Hgb 14.2 g/dl (14.0-18.0) 04/26/22 20:54 Hct 41.8 % (40.1-51.0) 04/26/22 20:54 MCV 86.5 fL (80.0-100.0) 04/26/22 20:54 MCH 29.4 pg (25.0-34.0) 04/26/22 20:54 MCHC 34.0 g/dL (32.0-36.0) 04/26/22 20:54 RDW Std Deviation 39.9 fL (36.4-46.3) 04/26/22 20:54 RDW Coeff of Brooks 12.6 % (11.5-14.5) 04/26/22 20:54 Plt Count 267 K/uL (130-400) 04/26/22 20:54 MPV 9.0 fL (9.4-12.4) L 04/26/22 20:54 Immature Gran % (Auto) 0.7 % 04/26/22 20:54 Neut % (Auto) 77.8 % 04/26/22 20:54 Lymph % (Auto) 9.8 % 04/26/22 20:54 Jewell % (Auto) 9.4 % 04/26/22 20:54 Eos % (Auto) 2.0 % 04/26/22 20:54 Baso % (Auto) 0.3 % 04/26/22 20:54 Neut # (Auto) 15.97 K/uL (1.4-6.5) H 04/26/22 20:54 Lymph # (Auto) 2.02 K/uL (1.2-3.4) 04/26/22 20:54 Jewell # (Auto) 1.92 K/uL (0.24-0.82) H 04/26/22 20:54 Eos # (Auto) 0.41 K/uL (0-0.50) 04/26/22 20:54 Baso # (Auto) 0.06 K/uL (0-0.2) 04/26/22 20:54 Immature Gran # (Auto) 0.15 K/uL (0.00-0.02) H 04/26/22 20:54 Sodium 130 mmol/L (136-145) L 04/26/22 20:54 Potassium 4.1 mmol/L (3.5-5.1) 04/26/22 20:54 Chloride 94 mmol/L (98-107) L 04/26/22 20:54 Carbon Dioxide 30 mmol/L (21-32) 04/26/22 20:54 Anion Gap 6 (3-11) 04/26/22 20:54 BUN 19 mg/dl (6-23) 04/26/22 20:54 Creatinine 1.46 mg/dl (0.6-1.4) H D 04/26/22 20:54 Est Cr Clr Drug Dosing 66.2 ml/min 04/26/22 20:54 Est GFR ( Amer) 64.1 ml/min 04/26/22 20:54 Est GFR (Non-Af Amer) 55.3 ml/min 04/26/22 20:54 BUN/Creatinine Ratio 13.0 (10-20) 04/26/22 20:54 Glucose 105 mg/dl (70-99(Fasting)) H 04/26/22 20:54 Lactate 1.1 mmol/L (0.4-2.0) 04/26/22 21:53 Calcium 9.3 mg/dl (8.5-10.1) 04/26/22 20:54 Total Bilirubin 1.1 mg/dl (0.2-1.0) H D 04/26/22 20:54 AST 19 U/L (13-39) 04/26/22 20:54 ALT 16 U/L (7-52) 04/26/22 20:54 Alkaline Phosphatase 63 U/L (34-104) 04/26/22 20:54 Total Protein 7.1 gm/dl (6.0-8.3) 04/26/22 20:54 Albumin 4.2 gm/dl (3.4-5.0) 04/26/22 20:54 Globulin 2.9 gm/dl (2.5-4.0) 04/26/22 20:54 Albumin/Globulin Ratio 1.4 (0.9-2) 04/26/22 20:54 Urine Color Yellow 04/26/22 Unknown Urine Appearance Clear (Clear) 04/26/22 Unknown Urine pH 5.5 (4.5-7.5) 04/26/22 Unknown Ur Specific Clawson 1.026 (1.000-1.030) 04/26/22 Unknown Urine Protein Negative (Negative) 04/26/22 Unknown Urine Glucose (UA) Negative (Negative) 04/26/22 Unknown Urine Ketones Trace (Negative) H 04/26/22 Unknown Urine Blood Negative (Negative) 04/26/22 Unknown Urine Nitrite Negative (Negative) 04/26/22 Unknown Urine Bilirubin Negative (Negative) 04/26/22 Unknown Urine Urobilinogen Negative (Negative) 04/26/22 Unknown Ur Leukocyte Esterase Negative (Negative) 04/26/22 Unknown SARS-CoV-2, RNA, NAAT NEGATIVE (NEGATIVE) 04/27/[address] abdomen and pelvis without contrastPer stat read: Minimal left lower lobe subpleural atelectasis otherwise clear lung bases. Normal cardiac size. Low- attenuation liver lesions, largest seen in the anterior aspect of the left liver lobe, likely cyst and measures 1.7 cm remainder of the liver lesions measure less than 5 mm and too small to characterize, likely benign such as simple cysts in the absence of known neoplasm. Normal spleen, pancreas and bilateral adrenal glands. Mild right hydronephrosis and hydroureter with a tiny stone seen just beyond the UVJ junction measuring approximate 2.7 mm. Mild right perinephric stranding otherwise unremarkable kidney. 2 stones seen within the left kidney largest measuring 2.4 mm. Otherwise normal left kidney. Atherosclerotic disease of aorta with no aneurysm. Minimal hiatal hernia otherwise unremarkable stomach. Normal small bowel. Increased fecal debris within the right and transverse colon, the descending colon is decompressed. The appendix is normal. Normal urinary bladder and prostate gland. Right side fat-containing inguinal hernia. Degenerative disease of the spine. PG Care Time/CCT Total # of Minutes Spent Total Time Spent with Patient: Total time spent is greater than 50% in coordination of care (as documented) at patient's floor/unit and/or counseling patient: Coding Level of Care Code 37345 Initial Inpt Care Lvl 2 Diagnoses Kidney stone N20.0 Hyperlipidemia E78.5 Depression with anxiety F41.8 Hypertension I10 Hypertension type: essential hypertension (1) Hypertension Hypertension type: essential hypertension Qualified Code(s): I10 - Essential (primary) hypertension
[2022-04-27] MEDS ORDERED: MoRPHine SULFATE 4 MG/ML 1 ML CARP\\VIAL ONE (01:49)
[2022-04-27] MEDS ORDERED: POLYETHYLENE (MIRALAX) 17 GM PACK PO PRN (04:18)
[2022-04-27] MEDS ORDERED: MoRPHine SULFATE 2 MG/ML CARP IV PRN (04:18)
[2022-04-27] MEDS ORDERED: ONDANSETRON INJ 2 MG/ML 2 ML VIAL IV PRN ×2 (04:18→13:56)
[2022-04-27] MEDS ORDERED: tiZANidine HCL 4 MG TABLET PO PRN (04:18)
[2022-04-27] MEDS ORDERED: METHOCARBAMOL 750 MG TABLET PO PRN (04:18)
[2022-04-27] MEDS: ACETAMINOPHEN 325 MG TAB PO PRN ×4 (04:35→22:17)
[2022-04-27] MEDS: LACTATED RINGER'S 1,000 ML IV SCH ×2 (04:37→12:43)
[2022-04-27] MEDS: MoRPHine SULFATE 4 MG/ML 1 ML CARP\\VIAL IV PRN ×3 (04:54→11:06)
--- NOTE | 2022-04-27 07:17 | Urology Consultation ---
Date of Consultation April 27, 2022 Assessment & Plan (1) Right distal ureteral calculus: Plan 51-year-old male with a right distal ureteral calculus currently admitted due to intractable pain. Discussed procedure with patient. We will plan for cystoscopy, right retrograde pyelogram, right ureteral stent placement and possible treatment of stone depending on if I can reach it intraoperatively. Please keep patient n.p.o. Anticipate procedural be mid afternoon History of Present Illness Reason for Consultation: Right distal ureteral calculus Attending Physician: Milli Peoples DO History of Present Illness 51-year-old male with a small distal ureteral calculus who is presented to the hospital twice in the past 1 to 2 days with pain. Independently reviewed CT scan which shows mild hydronephrosis and a several millimeter distal right ureteral calculus at the UVJ. Patient is currently afebrile with stable vitals. He does have a leukocytosis but is on chronic steroids. White blood cell count is currently 20.5. Creatinine is 1.46 from baseline around 1.1. Urinalysis was negative. Pain is relatively well controlled now but patient prefers surgical intervention. Allergies Allergy/AdvReac Type Severity Reaction Status Date / Time Sulfa (Sulfonamide Allergy Mild Nausea Verified 04/20/22 13:09 Antibiotics) Home Medications Medication Instructions Recorded Confirmed Type amlodipine 10 mg tablet 10 mg PO QAM #90 tabs 06/30/21 04/27/22 Rx escitalopram oxalate 20 mg tablet 20 mg PO HS #90 tabs 08/22/21 04/27/22 Rx (Lexapro) telmisartan 80 mg tablet 80 mg PO QAM #90 tabs 09/06/21 04/27/22 Rx aspirin 81 mg capsule 81 mg PO QAM 12/06/21 04/27/22 History metoprolol succinate 25 mg 25 mg PO QAM 12/06/21 04/27/22 History tablet,extended release 24 hr omeprazole magnesium 20 mg 20 mg PO DAILY PRN Acid Reflux 12/06/21 04/27/22 History tablet,delayed release (Prilosec OTC) buspirone 10 mg tablet 10 mg PO TID #90 tabs 12/12/21 04/27/22 Rx methocarbamol 750 mg tablet 1,500 mg PO Q8H PRN spasm #90 tabs 03/07/22 04/27/22 Rx prednisone 20 mg tablet 20 mg PO .COMPLEX #20 tabs 04/14/22 04/27/22 Rx tizanidine 4 mg tablet 4 mg PO Q8H PRN muscle spasticity 04/20/22 04/27/22 Rx #30 tabs tramadol 50 mg tablet 50 mg PO Q8H PRN pain #30 tabs 04/20/22 04/27/22 Rx ketorolac 10 mg tablet 10 mg PO Q6H 7 days #28 tabs 04/25/22 04/27/22 Rx oxycodone 5 mg tablet 5 mg PO Q4H PRN pain #15 tabs 04/25/22 04/27/22 Rx tamsulosin 0.4 mg capsule (Flomax) 0.4 mg PO DAILY #7 caps 04/25/22 04/27/22 Rx rosuvastatin 10 mg tablet 10 mg PO QAM 04/27/22 04/27/22 History Patient History Medical History Alcohol use disorder resolved per pt Arthritis lumbar region Cognitive impairment MOST RECENT HEAD INJURY (5 YEARS AGO) on occasion Concussion with no loss of consciousness LAST EVENT 5 YEARS AGO Degenerative disc disease Depression with anxiety History of COVID-27 Jul 2019 > can't recall symptoms Hyperlipidemia Hypertension follows Dr. Bacon Low back pain Osteoarthritis Postconcussion syndrome LAST EVENT 5 YEARS AGO Surgical History Family history of reaction to anesthesia MOTHER-SLOW TO WAKE UP History of arthroscopy RT KNEE History of colonoscopy History of left hip replacement (~11/2019) History of left inguinal hernia repair History of lumbar surgery L5-S1 surgery [address] Grant History of tooth extraction Family History Mother Hypertension History of blood clots Father Hypertension Denies family history of Ovarian cancer Prostate cancer Myocardial infarction Breast cancer Colorectal cancer Social History Smoking Status: Never smoker Second Hand Exposure: No; Do You Dip or Chew Tobacco: Yes; Tobacco Cessation Education Requested by Patient: No Hx Alcohol Use: No Hx Substance Use: Yes Substance Use Type Other:: HX of alcohol abuse 4 years ago Preferred Language: Bermudian Communication Ability: Effective Visual Impairment: No Limitations Hearing Ability: Normal Dry Cell Tester Required: No Beliefs That Will Affect Care: None marital status: Current Living Situation: Spouse current occupational status: employed 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 Other Information That Helps Us Care for You: No Feels Safe at Home: Yes Safety Concerns: Feels Safe At This Time Childhood Exposure to Second-Hand Smoke: No caffeine: Yes Dental Care, Regularly: No Physical Activity Frequency: Daily Seatbelt Use: always Sunscreen Use: Yes Assistive Devices: Glasses Review of Systems Review of Systems: 14 point review of systems negative outside of what is listed above in HPI Physical Exam Physical Exam: General: Alert and oriented, no acute distress HEENT: Normocephalic, mucous membranes moist Pulmonary: Nonlabored respirations Abdomen: Nondistended Extremities: Moves all 4 spontaneously Neuro: No gross deficits Skin: Warm, dry, no rashes noted Results & Data ([facility]) Vital Signs (Past 12 Hours) Vital Signs Temp Pulse Pulse Resp BP BP Pulse Ox 04/27/22 07:04 37.7 C H 04/27/22 04:57 37.9 C H 04/27/22 04:21 38.6 C H 04/27/22 04:09 38.3 C H 86 20 164/94 H 97 04/27/22 03:08 89 20 92 04/27/22 01:30 77 17 95 04/27/22 01:00 86 18 95 04/27/22 01:00 138/88 04/27/22 00:30 85 16 96 04/27/22 00:00 84 16 94 04/27/22 00:00 128/81 04/26/22 22:58 78 16 144/87 H 98 04/26/22 19:42 36.8 C 91 H 18 154/100 H 95 O2 Del Method 04/27/22 07:04 04/27/22 04:57 04/27/22 04:21 04/27/22 04:09 Room Air 04/27/22 03:08 Room Air 04/27/22 01:30 04/27/22 01:00 04/27/22 01:00 04/27/22 00:30 04/27/22 00:00 04/27/22 00:00 04/26/22 22:58 Room Air 04/26/22 19:42 Room Air PG Care Time/CCT Total # of Minutes Spent Total Time Spent with Patient: Total time spent is greater than 50% in coordination of care (as documented) at patient's floor/unit and/or counseling patient: Coding Level of Care Code 05498 Inpt Consult Level 4 Diagnoses Right distal ureteral calculus N20.1
[2022-04-27] MEDS ORDERED: amLODIPine BESYLATE 5 MG TAB PO SCH (09:00)
--- NOTE | 2022-04-27 09:01 | Hospitalist Progress Note ---
Date of Service April 27, 2022 Assessment & Plan (1) Calculus of ureterovesical junction (UVJ): Plan: 51-year-old male presenting with persistent right flank pain. Found to have 2.4 mm stone at the right UV J with hydronephrosis with R UVJ stones, POORNIMA on admission UA does not suggest infection, but possible and will continue abx for now Urology consulted NPO for cystoscopy later today Cr 1.46--> 1.22. baseline ~1 Continue LR @ 125cc/hr for 2 bags Pain control, antiemetics prn --> pain reported controlled Bowel regimen w/ senna Hypoactive BS, added docusate BID, miralax Encouraged ambulation with pain control -- constipation noted on CTAP WBC decreased, on prednisone taper for lumbar back pain . check procal w/ am labs Continue Ceftriaxone 2gm IV daily, monitor urine culture Continue flomax/strain urine Anticipate overnight stay, possible d/c in AM if pain controlled. Check TSH w/ AM labs as well given hyponatremia but did report n/v/dehydration on admission Monitor labs in AM (2) Kidney stone: (3) Acute kidney injury: Plan: On admit Cr 1.46, baseline closer to 1 IVF ordered, telmisartan on hold Cr this AM 1.22 OR for obstructing stone, continue IVF BMP in AM (4) Hypertension: Plan: Chronic. BP 103/68 On IVF for POORNIMA on admission Hold telmisartan for now Continues on amlodipine, metoprolol -- placed amlodipine on hold this AM for borderline BP, asymptomatic Monitor AM labs, if Cr improved/OR for obstructing stone can resume tomorrow Continue to monitor (5) Hyperlipidemia: Plan: Chronic. Continue Crestor 10 mg p.o. daily (6) Depression with anxiety: Plan: Chronic. Continue buspirone 10 mg p.o. 3 times daily Continue Lexapro 20 mg p.o. nightly Admission and Anticipated Discharge Date Admission Date: April 27, 2022 Subjective BRIDGE NOTE: ADMIT AFTER MIDNIGHT, NO BILL Seen this morning, pain reportedly controlled with ordered medications. Pain to R low back w/ radiation to R flank and groin. 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 Reports had been bloody yesterday. Laying flat in bed, had reported nausea/vomiting prior to admission, no further vomiting. Does have some constipation, not passing gas but no abd pain but does have BS, although hypoactive. Encouraged ambulation as able w/ pain control to assist with bowels. Discussed urology and intervention this afternoon, agreeable to monitoring overnight for pain control/cx monitoring given was in ER 2 days prior. Did have hx alcohol use in past, discussed borderline low B12 and replacement. Also discussed any prior reports/issues with thyroid. Denied, no hx. Will add to AM labs given he does endorse dry skin/constipation issues at baseline, also chronic pain and follows with pain management, on prednisone taper and checking procal to ensure no infectious etiology. Daughter came at end of conversation, technician trainee at the hospital. Questions/concerns addressed Results & Data Results & Data ([facility]) Vital Signs (Past 12 Hours) Vital Signs Temp Pulse Pulse Resp BP BP BP 04/27/22 07:36 36.9 C 77 20 100/68 04/27/22 07:04 37.7 C H 04/27/22 04:57 37.9 C H 04/27/22 04:21 38.6 C H 04/27/22 04:09 38.3 C H 86 20 164/94 H 04/27/22 03:08 89 20 04/27/22 01:30 77 17 04/27/22 01:00 86 18 04/27/22 01:00 138/88 04/27/22 00:30 85 16 04/27/22 00:00 84 16 04/27/22 00:00 128/81 04/26/22 22:58 78 16 144/87 H Pulse Ox O2 Del Method 04/27/22 07:36 95 Room Air 04/27/22 07:04 04/27/22 04:57 04/27/22 04:21 04/27/22 04:09 97 Room Air 04/27/22 03:08 92 Room Air 04/27/22 01:30 95 04/27/22 01:00 95 04/27/22 01:00 04/27/22 00:30 96 04/27/22 00:00 94 04/27/22 00:00 04/26/22 22:58 98 Room Air Laboratory Results 04/27/22 04/26/22 04/26/22 Range/Units Unknown Unknown 21:53 WBC (4.8-10.8) K/ul RBC (4.63-6.08) M/uL Hgb (14.0-18.0) g/dl Hct (40.1-51.0) % MCV (80.0-100.0) fL MCH (25.0-34.0) pg MCHC (32.0-36.0) g/dL RDW Std Deviation (36.4-46.3) fL RDW Coeff of Brooks (11.5-14.5) % Plt Count (130-400) K/uL MPV (9.4-12.4) fL Immature Gran % (Auto) % Neut % (Auto) % Lymph % (Auto) % [place] % (Auto) % Eos % (Auto) % Baso % (Auto) % Neut # (Auto) (1.4-6.5) K/uL Lymph # (Auto) (1.2-3.4) K/uL [place] # (Auto) (0.24-0.82) K/uL Eos # (Auto) (0-0.50) K/uL Baso # (Auto) (0-0.2) K/uL Immature Gran # (Auto) (0.00-0.02) K/uL Sodium (136-145) mmol/L Potassium (3.5-5.1) mmol/L Chloride (98-107) mmol/L Carbon Dioxide (21-32) mmol/L Anion Gap (3-11) BUN (6-23) mg/dl Creatinine (0.6-1.4) mg/dl Est Cr Clr Drug Dosing ml/min Est GFR ( Amer) ml/min Est GFR (Non-Af Amer) ml/min BUN/Creatinine Ratio (10-20) Glucose (70-99(Fasting)) mg/dl Lactate 1.1 (0.4-2.0) mmol/L Calcium (8.5-10.1) mg/dl Total Bilirubin (0.2-1.0) mg/dl AST (13-39) U/L ALT (7-52) U/L Alkaline Phosphatase (34-104) U/L Total Protein (6.0-8.3) gm/dl Albumin (3.4-5.0) gm/dl Globulin (2.5-4.0) gm/dl Albumin/Globulin Ratio (0.9-2) Urine Color Yellow Urine Appearance Clear (Clear) Urine pH 5.5 (4.5-7.5) Ur Specific [place] 1.026 (1.000-1.030) Urine Protein Negative (Negative) Urine Glucose (UA) Negative (Negative) Urine Ketones Trace H (Negative) Urine Blood Negative (Negative) Urine Nitrite Negative (Negative) Urine Bilirubin Negative (Negative) Urine Urobilinogen Negative (Negative) Ur Leukocyte Esterase Negative (Negative) SARS-CoV-2, RNA, NAAT NEGATIVE (NEGATIVE) 04/26/22 04/26/22 Range/Units 20:54 20:54 WBC 20.53 H (4.8-10.8) K/ul RBC 4.83 (4.63-6.08) M/uL Hgb 14.2 (14.0-18.0) g/dl Hct 41.8 (40.1-51.0) % MCV 86.5 (80.0-100.0) fL MCH 29.4 (25.0-34.0) pg MCHC 34.0 (32.0-36.0) g/dL RDW Std Deviation 39.9 (36.4-46.3) fL RDW Coeff of Brooks 12.6 (11.5-14.5) % Plt Count 267 (130-400) K/uL MPV 9.0 L (9.4-12.4) fL Immature Gran % (Auto) 0.7 % Neut % (Auto) 77.8 % Lymph % (Auto) 9.8 % [place] % (Auto) 9.4 % Eos % (Auto) 2.0 % Baso % (Auto) 0.3 % Neut # (Auto) 15.97 H (1.4-6.5) K/uL Lymph # (Auto) 2.02 (1.2-3.4) K/uL [place] # (Auto) 1.92 H (0.24-0.82) K/uL Eos # (Auto) 0.41 (0-0.50) K/uL Baso # (Auto) 0.06 (0-0.2) K/uL Immature Gran # (Auto) 0.15 H (0.00-0.02) K/uL Sodium 130 L (136-145) mmol/L Potassium 4.1 (3.5-5.1) mmol/L Chloride 94 L (98-107) mmol/L Carbon Dioxide 30 (21-32) mmol/L Anion Gap 6 (3-11) BUN 19 (6-23) mg/dl Creatinine 1.46 H D (0.6-1.4) mg/dl Est Cr Clr Drug Dosing 66.2 ml/min Est GFR ( Amer) 64.1 ml/min Est GFR (Non-Af Amer) 55.3 ml/min BUN/Creatinine Ratio 13.0 (10-20) Glucose 105 H (70-99(Fasting)) mg/dl Lactate (0.4-2.0) mmol/L Calcium 9.3 (8.5-10.1) mg/dl Total Bilirubin 1.1 H D (0.2-1.0) mg/dl AST 19 (13-39) U/L ALT 16 (7-52) U/L Alkaline Phosphatase 63 (34-104) U/L Total Protein 7.1 (6.0-8.3) gm/dl Albumin 4.2 (3.4-5.0) gm/dl Globulin 2.9 (2.5-4.0) gm/dl Albumin/Globulin Ratio 1.4 (0.9-2) Urine Color Urine Appearance (Clear) Urine pH (4.5-7.5) Ur Specific [place] (1.000-1.030) Urine Protein (Negative) Urine Glucose (UA) (Negative) Urine Ketones (Negative) Urine Blood (Negative) Urine Nitrite (Negative) Urine Bilirubin (Negative) Urine Urobilinogen (Negative) Ur Leukocyte Esterase (Negative) SARS-CoV-2, RNA, NAAT (NEGATIVE) PG Care Time/CCT Total # of Minutes Spent Total Time Spent with Patient: Total time spent is greater than 50% in coordination of care (as documented) at patient's floor/unit and/or counseling patient: Coding Level of Care Code None Diagnoses Calculus of ureterovesical junction (UVJ) N20.1 Kidney stone N20.0 Acute kidney injury N17.9 Hypertension I10 Hypertension type: essential hypertension Hyperlipidemia E78.5 Depression with anxiety F41.8 (1) Hypertension Hypertension type: essential hypertension Qualified Code(s): I10 - Essential (primary) hypertension
--- NOTE | 2022-04-27 09:36 | CT Scan Report ---
CT SCAN OF THE ABDOMEN AND PELVIS WITHOUT IV CONTRAST CLINICAL HISTORY: Right flank pain. COMPARISON STUDY: Abdominal CT dated 04/25/2022. TECHNIQUE: CT scan of the abdomen and pelvis is performed from the lung bases to the proximal femora. Images are reviewed in the axial, sagittal, and coronal planes. IV contrast was not administered for this examination. A dose lowering technique was utilized adhering to the principles of ALARA. CT DOSE: 850.36 mGy.cm FINDINGS: Lung bases: The heart is normal in size and without pericardial effusion. A punctate calcified granul zak seen at the right lung base. The lung bases are otherwise clear noting mild dependent atelectasis . There is a small hiatal hernia. Liver: The unenhanced liver is normal in size, contour, and attenuation. There is no intrahepatic jovana iary ductal dilatation. A 1.9 cm simple cyst is seen in the left lobe. Gallbladder: The liver contains vicariously excreted contrast and is otherwise normal in appearance. Spleen: Normal in size and attenuation. Pancreas: Unremarkable. Adrenal glands: Unremarkable. Kidneys: The unenhanced kidneys are normal in size. Again seen is a 4 mm obstructing calculus at the right vesicoureteral junction on image #404. This causes moderate right hydroureteronephrosis. There is associated right-sided perinephric stranding and fluid. Excreted IV contrast is seen within the ri ght renal collecting system and ureter. There is at least one additional punctate nonobstructing righ t renal calculus. There are at least 4 nonobstructing left renal calculi measuring up to 5 mm. No lef t ureteral stone is seen and there is no left-sided hydronephrosis. There is no evidence of contour d eforming renal mass lesion. Abdominal vasculature: The abdominal aorta is normal in course and caliber noting moderate atheroscle rotic calcification. Bowel: There is no bowel obstruction. Uabs-vl-plaotprs fecal retention is seen throughout the colon. There are scattered colonic diverticula without CT evidence of acute diverticulitis. The appendix is well-visualized and normal. Peritoneum: There is no intraperitoneal free air or abdominal ascites. There is a fat-containing umbi lical hernia. Lymphadenopathy: None. Pelvic viscera: Evaluation of the pelvis is degraded by streak artifact from a left hip arthroplasty. Hyperdense material within the bladder lumen likely represents excreted contrast from yesterday's ab dominal CT. The bladder is otherwise normal as visualized. There is a fat-containing right inguinal h ernia. Skeletal structures: There is mild lumbosacral spondylosis. No lytic or blastic lesions are seen. A l eft hip arthroplasty is in place. IMPRESSION: 1. A 4 mm obstructing calculus at the right vesicoureteral junction causes moderate right hydroureter onephrosis. This is unchanged from yesterday. 2. Additional bilateral nonobstructing renal calculi as above. ACT 112: Negative or not required by law. Electronically signed by: Papa Guillen M.D. 04/27/2022 9:35 AM
[2022-04-27 09:40] LABS: Basophils # (auto) 0.05 K/uL (0-0.2); Basophils % (auto) 0.3 %; Eosinophils # (auto) 0.25 K/uL (0-0.50); Eosinophils % (auto) 1.6 %; Hemoglobin 12.6 g/dl (14.0-18.0); Immature Granulocytes % (auto) 0.6 %; Lymphocytes # (auto) 1.59 K/uL (1.2-3.4); Lymphocytes % (auto) 10.1 %; Mean Corpuscular Hemoglobin 30.1 pg (25.0-34.0); Mean Corpuscular Volume 86.1 fL (80.0-100.0); Monocytes # (auto) 1.59 K/uL (0.24-0.82); Monocytes % (auto) 10.1 %; Neutrophils # (auto) 12.11 K/uL (1.4-6.5); Neutrophils % (auto) 77.3 %; Platelet Count 199 K/uL (130-400); RDW Coefficient of Variation 12.6 % (11.5-14.5); RDW Standard Deviation 39.7 fL (36.4-46.3); Red Blood Count 4.18 M/uL (4.63-6.08); White Blood Count 15.69 K/ul (4.8-10.8)
[2022-04-27] MEDS: SENNA 8.6 MG TAB PO SCH (09:51)
[2022-04-27] MEDS: ASPIRIN 81 MG ECTAB PO SCH (09:51)
[2022-04-27] MEDS: TAMSULOSIN HCL 0.4 MG CAP PO SCH (09:51)
[2022-04-27] MEDS: ROSUVASTATIN CALCIUM 10 MG TAB PO SCH (09:51)
[2022-04-27] MEDS: busPIRone 5 MG TAB PO SCH ×3 (09:51→20:11)
[2022-04-27] MEDS: METOPROLOL SUCC 25MG EXT REL TAB PO SCH (09:51)
[2022-04-27 10:08] LABS: BUN Creatinine Ratio 13.9 (10-20); Calcium 8.6 mg/dl (8.5-10.1); Creatinine Clr Calc Pharmacy 77.5 ml/min; Est GFR (African American) 79.6 ml/min; Est GFR (Non-African American) 68.7 ml/min; Potassium 4.3 mmol/L (3.5-5.1)
[2022-04-27] MEDS ORDERED: MIDAZOLAM HCL 1 MG/ML 2ML VIAL ONE (13:32)
[2022-04-27] MEDS ORDERED: fentaNYL citrate 100 MCG/2 ML VIAL ONE (13:32)
[2022-04-27] MEDS ORDERED: ATROPINE SULFATE 0.1 MG/ML 10ML SYR IV PRN (13:56)
[2022-04-27] MEDS ORDERED: ePHEDrine sulfate 50 MG/ML AMP IV PRN (13:56)
[2022-04-27] MEDS ORDERED: fentaNYL citrate 100 MCG/2 ML VIAL IV PRN (13:56)
--- NOTE | 2022-04-27 13:56 | Anesthesiology Consultation ---
Date of Service April 27, 2022 Assessment & Plan (1) Encounter for pre-operative examination: Chart Review Chart Review: Acceptable Risk for Surgery and Patient NOT seen in Pre Admission Testing Consults Requested none History Surgery Operation Date: 04/27/22 07:55 Proposed Procedures p cystoscopy, Right Retrograde Pyelogram, Right Stent Placement, Possible Laser Litho Stone Treatment - Hroace Trujillo MD Height/Weight Height: 5 ft 6 in Weight: 93.5 kg Allergies Allergy/AdvReac Type Severity Reaction Status Date / Time Sulfa (Sulfonamide Allergy Mild Nausea Verified 04/27/22 13:47 Antibiotics) Medications Home Medications Medication Instructions Recorded Confirmed Last Taken amlodipine 10 mg tablet 10 mg PO QAM #90 tabs 06/30/21 04/27/22 12/07/21 escitalopram oxalate 20 mg tablet 20 mg PO HS #90 tabs 08/22/21 04/27/22 12/07/21 (Lexapro) telmisartan 80 mg tablet 80 mg PO QAM #90 tabs 09/06/21 04/27/22 12/07/21 aspirin 81 mg capsule 81 mg PO QAM 12/06/21 04/27/22 12/07/21 metoprolol succinate 25 mg 25 mg PO QAM 12/06/21 04/27/22 12/07/21 tablet,extended release 24 hr omeprazole magnesium 20 mg 20 mg PO DAILY PRN Acid Reflux 12/06/21 04/27/22 Unknown tablet,delayed release (Prilosec OTC) buspirone 10 mg tablet 10 mg PO TID #90 tabs 12/12/21 04/27/22 Unknown methocarbamol 750 mg tablet 1,500 mg PO Q8H PRN spasm #90 tabs 03/07/22 04/27/22 Unknown prednisone 20 mg tablet 20 mg PO .COMPLEX #20 tabs 04/14/22 04/27/22 Unknown tizanidine 4 mg tablet 4 mg PO Q8H PRN muscle spasticity 04/20/22 04/27/22 Unknown #30 tabs tramadol 50 mg tablet 50 mg PO Q8H PRN pain #30 tabs 04/20/22 04/27/22 Unknown ketorolac 10 mg tablet 10 mg PO Q6H 7 days #28 tabs 04/25/22 04/27/22 Unknown oxycodone 5 mg tablet 5 mg PO Q4H PRN pain #15 tabs 04/25/22 04/27/22 Unknown tamsulosin 0.4 mg capsule (Flomax) 0.4 mg PO DAILY #7 caps 04/25/22 04/27/22 Unknown rosuvastatin 10 mg tablet 10 mg PO QAM 04/27/22 04/27/22 Unknown Active Medications Generic Name Dose Route Start Last Admin Trade Name Freq PRN Reason Stop Dose Admin Acetaminophen 650 mg 04/27/22 04:18 04/27/22 09:52 Acetaminophen 325 Mg Tab PO 05/27/22 04:17 650 mg Q4H PRN Administration pain/fever Aspirin 81 mg 04/27/22 09:00 04/27/22 09:51 Aspirin 81 Mg Ectab PO 05/27/22 08:59 81 mg QAM ASHLEY Administration Buspirone HCl 10 mg 04/27/22 09:00 04/27/22 09:51 Buspirone 5 Mg Tab PO 05/27/22 08:59 10 mg TID ASHLEY Administration Lactated Ringer's 1,000 mls @ 125 mls/hr 04/27/22 04:30 04/27/22 12:43 Lr IV 04/27/22 20:29 125 mls/hr .Q8H ASHLEY Administration Metoprolol Succinate 25 mg 04/27/22 09:00 04/27/22 09:51 Metoprolol Succ 25mg Ext Rel Tab PO 05/27/22 08:59 25 mg QAM ASHLEY Administration Morphine Sulfate 4 mg 04/27/22 04:18 04/27/22 11:06 Morphine Sulfate 4 Mg/Ml 1 Ml Carp\Vial IV 05/11/22 04:17 4 mg Q3H PRN Administration Pain (6,7,8,9,10) Rosuvastatin Calcium 10 mg 04/27/22 09:00 04/27/22 09:51 Rosuvastatin Calcium 10 Mg Tab PO 05/27/22 08:59 10 mg QAM ASHLEY Administration Sennosides 8.6 mg 04/27/22 09:00 04/27/22 09:51 Senna 8.6 Mg Tab PO 05/27/22 08:59 8.6 mg QAM ASHLEY Administration Tamsulosin HCl 0.4 mg 04/27/22 09:00 04/27/22 09:51 Tamsulosin Hcl 0.4 Mg Cap PO 05/27/22 08:59 0.4 mg DAILY ASHLEY Administration Past Medical History Medical History Alcohol use disorder resolved per pt Arthritis lumbar region Cognitive impairment MOST RECENT HEAD INJURY (5 YEARS AGO) on occasion Concussion with no loss of consciousness LAST EVENT 5 YEARS AGO Degenerative disc disease Depression with anxiety History of COVID-27 Jul 2019 > can't recall symptoms Hyperlipidemia Hypertension follows Dr. Bacon Low back pain Osteoarthritis Postconcussion syndrome LAST EVENT 5 YEARS AGO Past Family History Family History Mother Hypertension History of blood clots Father Hypertension Denies family history of Ovarian cancer Prostate cancer Myocardial infarction Breast cancer Colorectal cancer Past Surgical History Surgical History Family history of reaction to anesthesia MOTHER-SLOW TO WAKE UP History of arthroscopy RT KNEE History of colonoscopy History of left hip replacement (~11/2019) History of left inguinal hernia repair History of lumbar surgery L5-S1 surgery [address] Grant History of tooth extraction Social History Smoking Status: Never smoker tobacco type: smokeless tobacco Do You Dip or Chew Tobacco: Yes Hx Alcohol Use: No Alcohol type: beer alcohol intake frequency: 0-2 drinks per day Hx Substance Use: Yes substance use type: does not use Substance Use Type Other:: HX of alcohol abuse 4 years ago Physical Exam Vital Signs Last Vital Signs Temp 98.4 F 04/27/22 07:36 Pulse 79 04/27/22 09:48 Resp 20 04/27/22 07:36 BP 103/68 04/27/22 09:48 Pulse Ox 95 04/27/22 07:36 O2 Del Method 04/27/22 07:36 Testing Laboratory Results 04/27/22 09:07 04/27/22 09:07 Urine Color Yellow 04/26/22 Unknown Urine Appearance Clear (Clear) 04/26/22 Unknown Urine pH 5.5 (4.5-7.5) 04/26/22 Unknown Ur Specific [place] 1.026 (1.000-1.030) 04/26/22 Unknown Urine Protein Negative (Negative) 04/26/22 Unknown Urine Glucose (UA) Negative (Negative) 04/26/22 Unknown Urine Ketones Trace (Negative) H 04/26/22 Unknown Urine Nitrite Negative (Negative) 04/26/22 Unknown Ur Leukocyte Esterase Negative (Negative) 04/26/22 Unknown
[2022-04-27] MEDS ORDERED: ONDANSETRON INJ 2 MG/ML 2 ML VIAL ONE (14:10)
[2022-04-27] MEDS ORDERED: PROPOFOL IV EMULSION 10 MG/ML 20 ML VIAL IV ONE (14:10)
[2022-04-27] MEDS ORDERED: LIDOCAINE 2% MPF LOCAL 5 ML VIAL INFIL ONE (14:10)
[2022-04-27] MEDS ORDERED: KETOROLAC 30 MG/ML VIAL ONE (14:10)
[2022-04-27] MEDS ORDERED: DIATRIZOATE MEGLUMINE 30% 100ML VIAL INSTIL ONE (14:17)
--- NOTE | 2022-04-27 14:35 | Post Operative Brief Note ---
PG Immediate Post Op with CF Date of Surgery April 27, 2022 Pre & Post Diagnosis Operation Date: 04/27/22 07:55 Pre-Op Diagnosis: Right renal stone Post-Op Diagnosis: Right renal stone I identified the patient and participated in the time-out.: Yes Procedure Operation Date: 04/27/22 07:55 Actual Procedures p Cystoscopy, right retrograde pyelogram, right ureteroscopy(Right) - Horace Trujillo MD Surgeon Horace Trujillo MD Audit Reviewer None Estimated Blood Loss 10 Findings See Below Negative ureteroscopy. Stone in bladder. Retrograde showed no extravasation or filling defects. Specimens Specimen Description: no specimen per surgeon Anesthesia Type General Complications none
--- NOTE | 2022-04-27 14:46 | Operative Report ---
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 Stone in bladder. Specimens None Drains None Anesthesia Type General Complications none Indications 51-year-old male with a distal right ureteral calculus measuring 4 mm who presented to the emergency department twice in a 48-hour period. Options discussed and opted for stent with possible stone treatment. Patient did have leukocytosis however he is on chronic steroids. There was no concern for urinary tract infection he received antibiotics. Description of Procedure After informed consent was obtained, the patient was transported to the operative suite. General anesthesia was induced. They were placed in dorsal lithotomy position and prepped and draped in sterile fashion. They received preoperative ceftriaxone. An appropriate surgical timeout was performed. 22 Faroese rigid cystoscope was inserted per urethra in the bladder. Velez cystoscopy revealed no obvious stone. I turned my attention the right ureteral orifice and noted no stone . I advanced a sensor wire and confirmed in the upper pole the kidney with fluoroscopy. I advanced a semirigid ureteroscope in the distal ureter and encountered no stone. I ran the ureteroscope all the way up to the kidney and noted no stone in the ureter. I remove the semirigid ureteroscope and then advanced the flexible ureteroscope over the sensor wire into the kidney. Sensor wire was removed. Velez pyeloscopy revealed no stones. I slowly backed out the ureteroscope and noted no stones in the ureter. I went back into the ureter and kidney one more time and noted no stones. I then remove the ureteroscope. I went back in with a 22 Faroese rigid cystoscope to drain the bladder and at that time did note what appeared to be the stone in the dependent portion of the bladder. Unclear if it was not easily visualized at the beginning of the case or if it had been dislodged after the wire was advanced. Stone was evacuated out. I opted not to leave a stent due to minimal manipulation. Bladder was emptied. This concluded the end of the case. I attest to the content of the Intraoperative Record and any orders documented therein. Any exceptions are noted below.
--- NOTE | 2022-04-27 15:13 | Fluoroscopy Report ---
FL retrograde includes kub CLINICAL HISTORY: RT TECHNIQUE: 6 views were obtained with the C-arm in the OR with the above procedure. Total fluoroscopy time was 7 seconds. Comparison: Comparison is made to CT abdomen pelvis 04/26/2022 FINDINGS/IMPRESSION: Intraoperative images were obtained of right retrograde pyelogram with stent lucina cement. Please correlate with intraoperative fluoroscopy and operative report. ACT 112: Negative or not required by law. Electronically signed by: Calvin Goncalves M.D. 04/27/2022 3:12 PM
--- NOTE | 2022-04-27 15:15 | Anesthesiology Progress Note ---
Date of Service April 27, 2022 Anesthesia Post Procedure Vital Signs Vital Signs: Temp Pulse Pulse Pulse Resp BP BP 04/27/22 15:10 92 H 21 04/27/22 15:00 82 12 04/27/22 14:50 77 16 04/27/22 14:44 36.3 C L 78 17 04/27/22 13:48 37.1 C 75 18 04/27/22 09:48 79 103/68 04/27/22 07:36 36.9 C 77 20 100/68 04/27/22 07:04 37.7 C H 04/27/22 04:57 37.9 C H 04/27/22 04:21 38.6 C H 04/27/22 04:09 38.3 C H 86 20 04/27/22 03:08 89 20 04/27/22 01:30 77 17 04/27/22 01:00 86 18 04/27/22 01:00 138/88 04/27/22 00:30 85 16 04/27/22 00:00 84 16 04/27/22 00:00 128/81 04/26/22 22:58 78 16 04/26/22 19:42 36.8 C 91 H 18 154/100 H BP Pulse Ox O2 Del Method O2 Flow Rate 04/27/22 15:10 105/69 94 Room Air 04/27/22 15:00 116/71 98 Oxymask 6 04/27/22 14:50 107/62 97 Oxymask 6 04/27/22 14:44 99/58 L 95 Oxymask 6 04/27/22 13:48 123/72 97 Room Air 04/27/22 09:48 04/27/22 07:36 95 Room Air 04/27/22 07:04 04/27/22 04:57 04/27/22 04:21 04/27/22 04:09 164/94 H 97 Room Air 04/27/22 03:08 92 Room Air 04/27/22 01:30 95 04/27/22 01:00 95 04/27/22 01:00 04/27/22 00:30 96 04/27/22 00:00 94 04/27/22 00:00 04/26/22 22:58 144/87 H 98 Room Air 04/26/22 19:42 95 Room Air Pain Intensity Right Flank: Pain Intensity: 7 Transfer of Care Handoff Completed per policy Notes Mental Status: alert / awake / arousable and participated in evaluation Patient Amnestic to Procedure: Yes Nausea / Vomiting: adequately controlled Pain: adequately controlled Airway Patency, RR, SpO2: stable & adequate BP & HR: stable & adequate Hydration State: stable & adequate Anesthetic Complications: no major complications apparent and Pt Satisfied with anesthetic care
[2022-04-27] MEDS: DOCUSATE SODIUM 100 MG CAP PO SCH (20:11)
[2022-04-27] MEDS: POLYETHYLENE (MIRALAX) 17 GM PACK PO SCH (20:12)
[2022-04-27] MEDS ORDERED: ESCITALOPRAM OXALATE 20 MG TAB PO SCH (21:00)
[2022-04-27] MEDS ORDERED: cefTRIAXone SODIUM 2,000 MG in DEXTROSE 5% 50 ML IV SCH (22:00)
[2022-04-27] MEDS: CYANOCOBALAMIN (B-12) 500 MCG TABLET PO SCH (22:17)
--- NOTE | 2022-04-28 07:10 | Urology Progress Note ---
Date of Service April 28, 2022 Assessment & Plan (1) Calculus of ureterovesical junction (UVJ): Plan 51-year-old male with a right distal ureteral calculus. I took him to the OR yesterday for cystoscopy, right retrograde pyelogram and right ureteroscopy. He had already passed the stone into his bladder. There were no stones in the ureter or kidney. Opted not to leave a stent. Patient doing well postoperatively from a urologic perspective. Right flank pain is minimal. Stable for discharge home from a urologic perspective. Urology already sent a message for follow-up in 2 months with a renal ultrasound prior. Urology to sign off. Admission and Anticipated Discharge Date Admission Date: April 27, 2022 Subjective Patient is status post cystoscopy, ureteroscopy yesterday. He had passed a stone in the bladder and there were no remaining stones in the kidney or ureter. I opted not to leave a stent. He reports general body aches but denies any acute right flank pain. He is voiding without issue. Review of Systems Review of Systems: 14 point review of systems negative outside of what is listed above in HPI Physical Exam Physical Exam: General: Alert and oriented, no acute distress HEENT: Normocephalic, mucous membranes moist Pulmonary: Nonlabored respirations Abdomen: Nondistended Extremities: Moves all 4 spontaneously Neuro: No gross deficits Skin: Warm, dry, no rashes noted Results & Data ([facility]) Vital Signs (Past 12 Hours) Vital Signs Temp Pulse Resp BP BP Pulse Ox O2 Del Method 04/28/22 03:52 37.2 C 62 18 99/63 L 94 Room Air 04/27/22 22:55 37 C 76 16 109/70 97 Room Air 04/27/22 20:00 36.6 C 74 18 113/71 98 Room Air PG Care Time/CCT Total # of Minutes Spent Total Time Spent with Patient: Total time spent is greater than 50% in coordination of care (as documented) at patient's floor/unit and/or counseling patient: C[place] [address] Subseq Hosp Care Lvl 2 Patient Type Established Diagnoses Calculus of ureterovesical junction (UVJ) N20.1
[2022-04-28] MEDS: ACETAMINOPHEN 325 MG TAB PO PRN (07:19)
[2022-04-28 07:20] LABS: Hematocrit (blood only) 36.2 % (40.1-51.0); Hemoglobin 12.3 g/dl (14.0-18.0); Mean Corpuscular Hemoglobin 29.7 pg (25.0-34.0); Mean Corpuscular Volume 87.4 fL (80.0-100.0); Mean Platelet Volume 9.4 fL (9.4-12.4); Platelet Count 214 K/uL (130-400); RDW Coefficient of Variation 12.7 % (11.5-14.5); RDW Standard Deviation 40.3 fL (36.4-46.3); Red Blood Count 4.14 M/uL (4.63-6.08); White Blood Count 9.38 K/ul (4.8-10.8)
--- NOTE | 2022-04-28 07:39 | Discharge Summary ---
Date of Service April 28, 2022 Admission HPI Per Admitting Provider Cali Adams is a 51yo male with history of HTN, HLP, Depression/Anxiety presenting with right flank pain. Patient was seen in the ER on 04/25/22 with similar pain. Patient found to have an obstructing 4mm calculus of the right ureterovesicular junction. He was assessed by Urology during that visit. UA did not suggest infection. Patient was ultimately discharged home with conservative therapies - Flomax, Toradol and Oxycodone PRN. He returns today with persistent pain. Pain is in the right flank and testicle. Severe, minimal improvement with PO Toradol. He has only passed a small amount of urine. He has had some nausea as well. He denies fever but has been having some chills. Denies chest pain, cough, SOB, abdominal pain, diarrhea. Patient has history of renal stone in the past and had Urological intervention for removal. Uncertain of when. No additional complaints at this time. In the Er he is afebrile, HD stable ER Course: Ceftriaxone, Morphine, Admission Exam Per Admitting Provider General: patient resting, NAD, non-toxic in appearance, AA&O x 4 Skin: warm, dry, intact, no rashes or lesions HEENT: NC/AT, PERRL, EOMI, anicteric sclera, conjunctiva without injection, external ear normal to inspection and nontender, nares patent, moist mucus membranes, dentition intact, no oropharyngeal lesions, neck supple, trachea midline, no LAD, no thyromegaly, no JVD Heart: +S1/S2, regular, no m/r/g Lungs: equal air entry bilaterally, no rales/rhonchi/wheezes Abd: +BS, soft, diffusely tender with no rebound/guarding/peritoneal signs, some distention, tympanic to percussion Ext: warm, 2+ pulses in UE/LE bilaterally, no clubbing/cyanosis or edema Neuro: nonfocal, patient AA&O x 4, speech intact, no facial droop, moving all extremities on command with equal strength 5/5 Principal Diagnosis Calculus of UVJ Discharge Exam General: WD/WN male laying in hospital bed, NAD HEENT; head normocephalic, atraumatic, dentition intact, mmm, trachea midline Resp: CTAB, no w/c/r, on room air CV: RRR, no m/r/g, no calf tenderness/edema GI: +BS, nontender : no blandon MSK/Neuro: no focal deficit, follows commands, equal strength throughout Psych: AOx3, pleasant and cooperative Discharge Data Allergies Allergy/AdvReac Type Severity Reaction Status Date / Time Sulfa (Sulfonamide Allergy Mild Nausea Verified 04/27/22 13:47 Antibiotics) Consultations 04/27/22 00:38 Consult Urology Routine 04/27/22 00:39 ED Decision to Admit Stat Procedures Performed Operation Date: 04/27/22 07:55 Actual Procedures p Cystoscopy, right retrograde pyelogram, right ureteroscopy(Right) - Horace Trujillo MD Ordered Studies Abdomen/Pelvis CT 04/26/22 21:49 CT SCAN OF THE ABDOMEN AND PELVIS WITHOUT IV CONTRAST CLINICAL HISTORY: Right flank pain. COMPARISON STUDY: Abdominal CT dated 04/25/2022. TECHNIQUE: CT scan of the abdomen and pelvis is performed from the lung bases to the proximal femora. Images are reviewed in the axial, sagittal, and coronal planes. IV contrast was not administered for this examination. A dose lowering technique was utilized adhering to the principles of ALARA. CT DOSE: 850.36 mGy.cm FINDINGS: Lung bases: The heart is normal in size and without pericardial effusion. A punctate calcified granuloma seen at the right lung base. The lung bases are otherwise clear noting mild dependent atelectasis. There is a small hiatal hernia. Liver: The unenhanced liver is normal in size, contour, and attenuation. There is no intrahepatic biliary ductal dilatation. A 1.9 cm simple cyst is seen in the left lobe. Gallbladder: The liver contains vicariously excreted contrast and is otherwise normal in appearance. Spleen: Normal in size and attenuation. Pancreas: Unremarkable. Adrenal glands: Unremarkable. Kidneys: The unenhanced kidneys are normal in size. Again seen is a 4 mm obstructing calculus at the right vesicoureteral junction on image #[id number]. This causes moderate right hydroureteronephrosis. There is associated right-sided perinephric stranding and fluid. Excreted IV contrast is seen within the right renal collecting system and ureter. There is at least one additional punctate nonobstructing right renal calculus. There are at least 4 nonobstructing left renal calculi measuring up to 5 mm. No left ureteral stone is seen and there is no left-sided hydronephrosis. There is no evidence of contour deforming renal mass lesion. Abdominal vasculature: The abdominal aorta is normal in course and caliber notin g moderate atherosclerotic calcification. Bowel: There is no bowel obstruction. [id number] fecal retention is seen throughout the colon. There are scattered colonic diverticula without CT evid ence of acute diverticulitis. The appendix is well-visualized and normal. Peritoneum: There is no intraperitoneal free air or abdominal ascites. There is a fat-containing umbilical hernia. Lymphadenopathy: None. Pelvic viscera: Evaluation of the pelvis is degraded by streak artifact from a left hip arthroplasty. Hyperdense material within the bladder lumen likely represents excreted contrast from yesterday's abdominal CT. The bladder is otherwise normal as visualized. There is a fat-containing right inguinal hernia. Skeletal structures: There is mild lumbosacral spondylosis. No lytic or blastic lesions are seen. A left hip arthroplasty is in place. IMPRESSION: 1. A 4 mm obstructing calculus at the right vesicoureteral junction causes moderate right hydroureteronephrosis. This is unchanged from yesterday. 2. Additional bilateral nonobstructing renal calculi as above. ACT 112: Negative or not required by law. Electronically signed by: Papa Guillen M.D. 04/27/2022 9:35 AM Retrograde Pyelogram 04/27/22 00:00 FL retrograde includes kub CLINICAL HISTORY: RT TECHNIQUE: 6 views were obtained with the C-arm in the OR with the above procedure. Total fluoroscopy time was 7 seconds. Comparison: Comparison is made to CT abdomen pelvis 04/26/2022 FINDINGS/IMPRESSION: Intraoperative images were obtained of right retrograde pyelogram with stent placement. Please correlate with intraoperative fluoroscopy and operative report. ACT 112: Negative or not required by law. Electronically signed by: Calvin Goncalves M.D. 04/27/2022 3:12 PM Hospital Course (1) Calculus of ureterovesical junction (UVJ): 51-year-old male presenting with persistent right flank pain. Found to have 2.4 mm stone at the right UV J with hydronephrosis with R UVJ stones, POORNIMA on admission UA does not suggest infection however covered with ceftriaxone empirically. No culture, no fevers. WBC returned to normal on repeat (on steroid taper for back [employer]) Urology consulted s/p cystoscopy with Dr Trujillo -- stone had passed into bladder, elected not to place stent. No need for flomax IVF hydration/supportive care provided Pain improved, and urinating without issue. Cr returned to baseline, resume home meds at discharge To have outpt f/u Urology, renal US prior to visit in 2 months. Has had hx cysteine stones per patient in the past. (2) Kidney stone: as above (3) Acute kidney injury: On admit Cr 1.46, baseline closer to 1. Secondary to dehydration/obstructing stone as above IVF ordered, telmisartan placed hold Cr 0.77 prior to discharge and urinating without issue and clearing up. To resume telmisartan for tomorrow (4) Hypertension: Chronic. On IVF for POORNIMA on admission, held telmisartan. Amlodipine placed on hold for borderline BP (asymptomatic) Continued metoprolol Can also resume amlodipine tomorrow with his telmisartan. Improvement in PO intake and BP stable 121/78 (5) Hyperlipidemia: Chronic. Continued Crestor 10 mg p.o. daily (6) Depression with anxiety: Chronic. Continued buspirone 10 mg p.o. 3 times daily, lexapro 20mg (7) B12 deficiency: Hgb was in the 15 on admission but had dehydration as well as obstructing stone discussed neuropathy symptoms/fatigue/energy -- checked B12 given prior heavy alcohol use although denies any current B12 borderline low -- started and to continue PO supplementation at discahrge Total Time Total Time Spent Total Time Spent (In Minutes): 40 Discharge Plan Discharge Items Patient Disposition: Home - Self-Care Reason For Visit: RENAL STONE Discharge Diagnosis: Kidney Stone Goals: You have been hospitalized for an urgent problem which required surgery. During your stay at [facility], we have made an effort to correct the problem that brought you to the hospital while keeping you as comfortable as possible. Surgery and medications were used to bring your condition under control and your discharge instructions will include directions for any medications you should take after leaving the hospital. Please make sure to follow the advice of your surgeon regarding follow up with the surgeon and with your primary care provider. Activity: Resume your previous activity Non-emergency contact: Primary Care Provider and Urologist Call non-emergency contact if: you have any medication questions, your symptoms worsen, your pain is not controlled and you have a fever Follow-up/Referrals: Uli Kaiser MD [Primary Care Provider] - 05/02/22 2:00 pm Horace Trujillo MD [Physician] - 06/30/22 10:00 am ( If unable to keep this appt. please call the office to reschedule.) Diet: Heart Healthy Addtl Attending Provider Instructions: You have been hospitalized for flank pain due to a kidney stone. We treated you with pain medication and IV fluids and thankfully you had already passed the stone into the bladder when you were taken for cystoscopy and they opted not to put a stent in. You should follow up with Urology in 2 months with repeat renal ultrasound prior to that visit. You can alternate Tylenol/ibuprofen (or your toradol, but as discussed cautious use to not damage kidneys) as needed at home for pain. Your kidney function has returned to normal and you can continue your home medications. Please ensure drinking plenty of water at home and staying hydrated. Please follow up with your PCP in the next 7-10 days to monitor your progress after discharge from the hospital. Please return to the ER with any worsening pain, fever, chest pain, shortness of breath, or for any other symptoms concerning for you. I also checked a B12 while you were in the hospital and this was a little on the low side. You have been given replacement in the hospital and should continue B12 daily as prescribed. It has been a pleasure being a part of the medical team providing for you while you have been in the hospital. Take care! Pending Studies at Discharge: Yes Studies:: Blood cultures -- no growth to date Stand[facility]Alone [facility]: [facility] Medications and [facility] Order Prescriptions: New cyanocobalamin (vitamin B-12) 1,000 mcg capsule 1,000 mcg PO DAILY Qty: 30 0RF Continued tizanidine 4 mg tablet 4 mg PO Q8H PRN (Reason: muscle spasticity) Qty: 30 0RF tramadol 50 mg tablet 50 mg PO Q8H PRN (Reason: pain) Qty: 30 0RF amlodipine 10 mg tablet 10 mg PO QAM Qty: 90 3RF escitalopram oxalate [Lexapro] 20 mg tablet 20 mg PO HS Qty: 90 3RF telmisartan 80 mg tablet 80 mg PO QAM Qty: 90 3RF buspirone 10 mg tablet 10 mg PO TID Qty: 90 3RF Rx Instructions: TAKE ONE TABLET BY MOUTH 3 TIMES A DAY methocarbamol 750 mg tablet 1,500 mg PO Q8H PRN (Reason: spasm) Qty: 90 0RF prednisone 20 mg tablet 20 mg PO .COMPLEX Qty: 20 0RF Rx Instructions: 20 mg PO; 3 tablets PO x 3 days; 2 tablets PO x 3 days; 1 tablets PO x 3 days; 1/2 tablet PO x 4 days tamsulosin [Flomax] 0.4 mg capsule 0.4 mg PO DAILY Qty: 7 0RF oxycodone 5 mg tablet 5 mg PO Q4H PRN (Reason: pain) Qty: 15 0RF ketorolac 10 mg tablet 10 mg PO Q6H 7 Days Qty: 28 0RF rosuvastatin 10 mg tablet 10 mg PO QAM aspirin 81 mg Capsule 81 mg PO QAM metoprolol succinate 25 mg tablet extended release 24 hr 25 mg PO QAM Rx Instructions: TAKE ONE TABLET BY MOUTH EVERY MORNING omeprazole magnesium [Prilosec OTC] 20 mg tablet,delayed release (DR/EC) 20 mg PO DAILY PRN (Reason: Acid Reflux) Discharge Orders: Discharge Order (Routine); Ordered 04/28/22 Ordered By: Andria Henderson Admission Data Admit Date/Time: 04/27/22 01:08 Attending Provider: Arun Schwartz Admit Provider: Milli Peoples Primary Care Provider: Uli Kaiser Other Providers: Horace Trujillo ; Milli Peoples Coding Level of Care Code D/C DAY MANAGEMENT >30 MINS Diagnoses Calculus of ureterovesical junction (UVJ) N20.1 Kidney stone N20.0 Acute kidney injury N17.9 Hypertension I10 Hypertension type: essential hypertension Hyperlipidemia E78.5 Depression with anxiety F41.8 B12 deficiency E53.8
[2022-04-28 07:55] LABS: BUN Creatinine Ratio 22.1 (10-20); Calcium 8.5 mg/dl (8.5-10.1); Creatinine Clr Calc Pharmacy 122.9 ml/min; Est GFR (African American) 122.6 ml/min; Est GFR (Non-African American) 105.8 ml/min; Potassium 4.5 mmol/L (3.5-5.1)
[2022-04-28] MEDS: DOCUSATE SODIUM 100 MG CAP PO SCH (09:17)
[2022-04-28] MEDS: SENNA 8.6 MG TAB PO SCH (09:17)
[2022-04-28] MEDS: busPIRone 5 MG TAB PO SCH (09:18)
[2022-04-28] MEDS: POLYETHYLENE (MIRALAX) 17 GM PACK PO SCH (09:18)
[2022-04-28] MEDS: ROSUVASTATIN CALCIUM 10 MG TAB PO SCH (09:18)
[2022-04-28] MEDS: ASPIRIN 81 MG ECTAB PO SCH (09:18)
[2022-04-28] MEDS: METOPROLOL SUCC 25MG EXT REL TAB PO SCH (09:18)
[2022-04-28] MEDS: TAMSULOSIN HCL 0.4 MG CAP PO SCH (09:19)
[2022-04-28] MEDS: CYANOCOBALAMIN (B-12) 500 MCG TABLET PO SCH (10:43)
[2022-04-29 05:01] LABS: A calco-baum cmplx NotReported Not Detected (NotDetected); Bact fragilis Not Reported Not Detected (NotDetected); C auris Not Reported Not Detected (NotDetected); Calbicans Not Reported Not Detected (NotDetected); Candida glabrata Not Reported Not Detected (NotDetected); Candida krusei Not Reported Not Detected (NotDetected); Cneoformans/gatti Not Reported Not Detected (NotDetected); Cparapsilosis Not Reported Not Detected (NotDetected); Ctropicalis Not Reported Not Detected (NotDetected); E cloacae compx Not Reported Not Detected (NotDetected); Efaecalis Not Reported Not Detected (NotDetected); Efaecium Not Reported Not Detected (NotDetected); Enterobacterales Not Reported Not Detected (NotDetected); Escherichia coli Not Reported Not Detected (NotDetected); H influenzae Not Reported Not Detected (NotDetected); K aerogenes Not Reported Not Detected (NotDetected); Koxytoca Not Reported Not Detected (NotDetected); Kpneumoniae grp Not Reported Not Detected (NotDetected); Lmonocyt Not Reported Not Detected (NotDetected); N meningitidis Not Reported Not Detected (NotDetected); P aeruginosa Not Reported Not Detected (NotDetected); Proteus spp Not Reported Not Detected (NotDetected); Salmonella spp Not Reported Not Detected (NotDetected); Smarcescens Not Reported Not Detected (NotDetected); Staph lugdunensis Not Reported Not Detected (NotDetected); Staph spp. Not Reported DETECTED (NotDetected); Staphaureus Not Reported Not Detected (NotDetected); Staphepi Not Reported Not Detected (NotDetected); Staphylococcus spp. DETECTED (NotDetected); Stenmaltophilia Not Reported Not Detected (NotDetected); Strep agal(GrpB) Not Reported Not Detected (NotDetected); Strep pneum Not Reported Not Detected (NotDetected); Strep pyog (GrpA) Not Reported Not Detected (NotDetected); Strep spp Not Reported Not Detected (NotDetected)
== END 2022-04-28 11:39 | disposition home or self-care (01) | DRG 694 ==
LOC: ED 19:22 → SUATTDRO 04-27 01:08 → 3E 04-27 01:08

== ENCOUNTER 2022-08-05 20:06 | Inpatient (IN) ==
[2022-08-05] MEDS ORDERED: HYDROmorphone INJ 1 MG/ML SYRINGE IV STA (20:32)
[2022-08-05] MEDS ORDERED: ONDANSETRON INJ 2 MG/ML 2 ML VIAL IV STA (20:32)
[2022-08-05] MEDS ORDERED: dexAMETHasone**PF** 10 MG/ML VIAL IV ONE (20:32)
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
[2022-08-05 20:59] LABS: Hematocrit (blood only) 39.6 % (42.0-52.0); Hemoglobin 14.1 g/dl (14.0-18.0); Mean Corpuscular Hemoglobin 30.3 pg (25.0-34.0); Mean Corpuscular Hgb Conc 35.6 g/dL (32.0-36.0); Mean Corpuscular Volume 85.2 fL (80.0-100.0); Mean Platelet Volume 8.9 fL (9.4-12.4); Platelet Count 354 K/uL (130-400); RDW Coefficient of Variation 12.5 % (11.5-14.5); RDW Standard Deviation 38.3 fL (36.4-46.3); Red Blood Count 4.65 M/uL (4.70-6.10); White Blood Count 19.44 K/ul (4.8-10.8)
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
[2022-08-05 21:19] LABS: Calcium 9.4 mg/dl (8.5-10.1); Potassium 4.7 mmol/L (3.5-5.1)
[2022-08-05] MEDS ORDERED: HYDROmorphone INJ 0.5 MG/0.5 ML SYR IV STA (21:24)
[2022-08-05 21:25] LABS: BUN Creatinine Ratio 15.1 (10-20); Creatinine Clr Calc Pharmacy 101.7 ml/min; Est GFR (African American) 110.6 ml/min; Est GFR (Non-African American) 95.4 ml/min
[2022-08-05] MEDS ORDERED: NALOXONE HCL 0.4 MG/1 ML VIAL/CARP IV PRN (21:29)
[2022-08-05] MEDS ORDERED: SODIUM CHLORIDE 0.9% 1000ML 1,000 ML IV SCH (21:30)
[2022-08-05] MEDS ORDERED: ACETAMINOPHEN 1,000 MG/100 ML VIAL IV STA (21:40)
[2022-08-05] MEDS: PANTOprazole 40 MG in SYRINGE 0 ML IV SCH (22:13)
[2022-08-05] MEDS: GABAPENTIN 300 MG CAP PO SCH (22:13)
[2022-08-05] MEDS: oxyCODONE HCL IR 5 MG TAB (IMMEDIATE RELEASE) PO PRN (22:26)
[2022-08-05 22:37] LABS: Appearance Urine Clear (Clear); Bilirubin Urine Negative (Negative); Blood Urine Negative (Negative); Color Urine Yellow; Glucose Urine UA Negative (Negative); Ketones Urine Negative (Negative); Leukocyte Esterase Urine Negative (Negative); Nitrite Urine Negative (Negative); Protein Urine Negative (Negative); Specific Gravity Urine 1.008 (1.000-1.030); Urobilinogen Urine Negative (Negative); pH Urine 7.5 (4.5-7.5)
[2022-08-05] MEDS: HYDROmorphone INJ 1 MG/ML SYRINGE IV PRN (23:18)
[2022-08-05] MEDS ORDERED: tiZANidine HCL 4 MG TABLET PO STA (23:46)
[2022-08-06] MEDS: oxyCODONE HCL IR 5 MG TAB (IMMEDIATE RELEASE) PO PRN ×3 (02:48→13:20)
[2022-08-06] MEDS: ACETAMINOPHEN 1,000 MG/100 ML VIAL IV SCH ×3 (05:37→21:51)
[2022-08-06] MEDS: HYDROmorphone INJ 1 MG/ML SYRINGE IV PRN ×3 (05:39→18:11)
[2022-08-06 06:02] LABS: Hematocrit (blood only) 39.8 % (42.0-52.0); Hemoglobin 13.7 g/dl (14.0-18.0); Mean Corpuscular Hemoglobin 29.3 pg (25.0-34.0); Mean Corpuscular Hgb Conc 34.4 g/dL (32.0-36.0); Mean Corpuscular Volume 85.2 fL (80.0-100.0); Mean Platelet Volume 9.5 fL (9.4-12.4); Platelet Count 321 K/uL (130-400); RDW Coefficient of Variation 12.4 % (11.5-14.5); RDW Standard Deviation 38.5 fL (36.4-46.3); Red Blood Count 4.67 M/uL (4.70-6.10); White Blood Count 20.56 K/ul (4.8-10.8)
[2022-08-06 06:10] LABS: Prothrombin Time 10.8 Seconds (9.0-12.0)
[2022-08-06 06:52] LABS: Albumin Level 3.9 gm/dl (3.4-5.0); Bilirubin,Total 0.4 mg/dl (0.2-1.0); Calcium 8.4 mg/dl (8.5-10.1); Potassium 4.4 mmol/L (3.5-5.1)
[2022-08-06 06:59] LABS: Albumin Globulin Ratio 1.6 (0.9-2); Creatinine Clr Calc Pharmacy 115.1 ml/min; Est GFR (African American) 120.1 ml/min; Est GFR (Non-African American) 103.6 ml/min; Globulin 2.4 gm/dl (2.5-4.0); Total Protein 6.3 gm/dl (6.0-8.3)
--- NOTE | 2022-08-06 07:42 | Hospitalist Progress Note ---
Date of Service August 06, 2022 Assessment & Plan (1) Intractable back pain: Plan: Patient has a long history of previous back pain and follows with [facility] pain management clinic . 3rd visit to ER in over a week for symptoms. Failed conservative treatment outpatient. Thankfully no cauda equina symptoms Continue pain control: * Increased Solumedrol to 40mg Q6H (got 10mg IV Decadron in ER) * Continue increased gabapentin to BID, * Tizanidine 4mg TID * Continue Tylenol, Oxycodone, Dilaudid prn * lidocaine patch, heat Of note, had been taking ibuprofen 800mg Q4H at home * avoiding NSAIDs * on omeprazole at home, on Protonix IVP daily inpatient, will increase to BID Bowel regimen * Moved bowels yesterday, scheduled colace BID and daily miralax. Monitor for constipation w/ pain medications Pain management consulted * pain management increased gabapentin to TID and added baclofen to regimen, does not feel injection to provide sufficient relief Orthopedic Spine Surgery consulted * Dr Grant planning for surgical intervention tomorrow * Diet ordered for today, NPO at midnight Will check CXR/EKG pre-op Also, checking renal US to ensure no stones given prior obstructive uropathy and normal UA in April given leukocytosis on labs. Check procal (NEGATIVE) -- lik valery from steroid use from multiple ER trips Will need PT/OT evals post-op Monitor labs in AM (2) Hypertension: Plan: BP stable, 133/84 Continue amlodipine, metoprolol, and telmisartan Plan to hold telmisartan post-op Monitor (3) Depression with anxiety: Plan: Continue Duloxetine and Buspar (4) Hyperlipidemia: Plan: Conitnue statin (5) GERD (gastroesophageal reflux disease): Plan: Will place him on 40 mg IV pantoprazole daily for stress ulcer PPX (on omeprazole prn reflux at home) Will increase to BID given complaints of reflux as well as recent NSAID use Plan continued inpatient stay check renal US for completeness check CXR/EKG pre-op diet ordered as no surgery today, NPO at midnight Admission and Anticipated Discharge Date Admission Date: August 05, 2022 Supervising Physician Co-Signing Physician Notes The patient was seen by me. Chart reviewed. Case discussed with Dr. Darwin Grant. Case discussed with Andria Henderson, physicians therapy assistant. Agree with assessment and plan Subjective eval this morning, seen by Dr Grant and Dr Pedroza, planning for surgery tomorrow. Back pain on the left low back w/ radicular symptoms, not controlled outpatient w/ pain management and decision to pursue surgical intervention for treatment. at bedside, updated. Does have hx kidney stones in the past, no hematuria or blood in stools. Had been taking quite a hefty dose of ibuprofen 800mg every four hours at home with tylenol. No abdominal pain. No blood in stool noted. Got oxycodone this morning and then dose of dilaudid as pain was not controlled. Increased steroid dose as well for improvement in symptoms. LE weakness on exam. No chest pain or shortness of breath. Moved his bowels yesterday. No loss of bladder/bowel function -- instructed to let us know if this occurs. Questions/concerns addressed at this time. Review of Systems Review of Systems: All systems reviewed & are unremarkable except as noted in HPI & below Physical Exam Physical Exam: General: WD obese male laying flat in bed, pain w/ movement but NAD HEENT: head normocephalic, mm slightly dry, trachea midline Resp: CTAB, no w/c/r, on room air CV: RRR, no m/r/g, no pitting edema/calf tenderness GI: +BS, obese/distended but nontender on exam, no guarding/rebound MSK/Neuro: follows commands, no slurred speech/facial droop, strength equal UE LE with decreased strength with dorsiflexion/plantar flexion on the left compared to the right, moderate lumbar muscle tightness pulses palpable Psych: AOx3, cooperative and pleasant Skin: warm, dry, perfused Results & Data Results & Data ([facility]) Vital Signs (Past 12 Hours) Vital Signs Temp Pulse Pulse Resp BP BP Pulse Ox 08/06/22 07:28 36.3 C L 70 18 133/84 98 08/05/22 22:59 08/05/22 22:59 08/05/22 22:59 08/05/22 22:59 36.8 C 73 20 136/84 100 08/05/22 22:59 36.8 C 73 20 136/84 100 08/05/22 22:30 72 20 144/98 H 99 08/05/22 22:30 99 08/05/22 21:01 99 08/05/22 21:01 87 20 135/87 100 08/05/22 20:09 36.8 C 89 18 167/124 H 100 Pulse Ox O2 Del Method O2 Del Method 08/06/22 07:28 Room Air 08/05/22 22:59 Room Air 08/05/22 22:59 100 Room Air 08/05/22 22:59 Room Air 08/05/22 22:59 Room Air 08/05/22 22:59 Room Air 08/05/22 22:30 Room Air 08/05/22 22:30 Room Air 08/05/22 21:01 Room Air 08/05/22 21:01 Room Air 08/05/22 20:09 Room Air Laboratory Results 08/06/22 08/06/22 08/06/22 Range/Units 05:24 05:24 05:24 WBC 20.56 H (4.8-10.8) K/ul RBC 4.67 L (4.70-6.10) M/uL Hgb 13.7 L (14.0-18.0) g/dl Hct 39.8 L (42.0-52.0) % MCV 85.2 (80.0-100.0) fL MCH 29.3 (25.0-34.0) pg MCHC 34.4 (32.0-36.0) g/dL RDW Std Deviation 38.5 (36.4-46.3) fL RDW Coeff of Brooks 12.4 (11.5-14.5) % Plt Count 321 (130-400) K/uL MPV 9.5 (9.4-12.4) fL PT 10.8 (9.0-12.0) Seconds INR 1.0 (0.9-1.1) Sodium 137 (136-145) mmol/L Potassium 4.4 (3.5-5.1) mmol/L Chloride 105 (98-107) mmol/L Carbon Dioxide 27 (21-32) mmol/L Anion Gap 5 (3-11) BUN 13 (6-23) mg/dl Creatinine 0.81 (0.6-1.4) mg/dl Est Cr Clr Drug Dosing 115.1 ml/min Est GFR ( Amer) 120.1 ml/min Est GFR (Non-Af Amer) 103.6 ml/min BUN/Creatinine Ratio 16.0 (10-20) Glucose 132 H (70-99(Fasting)) mg/dl Calcium 8.4 L (8.5-10.1) mg/dl Total Bilirubin 0.4 (0.2-1.0) mg/dl AST 15 (13-39) U/L ALT 17 (7-52) U/L Alkaline Phosphatase 56 (34-104) U/L Total Protein 6.3 (6.0-8.3) gm/dl Albumin 3.9 (3.4-5.0) gm/dl Globulin 2.4 L (2.5-4.0) gm/dl Albumin/Globulin Ratio 1.6 (0.9-2) Procalcitonin (0-0.5) ng/ml Urine Color Urine Appearance (Clear) Urine pH (4.5-7.5) Ur Specific Mustang (1.000-1.030) Urine Protein (Negative) Urine Glucose (UA) (Negative) Urine Ketones (Negative) Urine Blood (Negative) Urine Nitrite (Negative) Urine Bilirubin (Negative) Urine Urobilinogen (Negative) Ur Leukocyte Esterase (Negative) SARS-CoV-2, RNA, NAAT (NEGATIVE) 08/05/22 08/05/22 08/05/22 Range/Units 22:21 21:10 20:50 WBC (4.8-10.8) K/ul RBC (4.70-6.10) M/uL Hgb (14.0-18.0) g/dl Hct (42.0-52.0) % MCV (80.0-100.0) fL MCH (25.0-34.0) pg MCHC (32.0-36.0) g/dL RDW Std Deviation (36.4-46.3) fL RDW Coeff of Brooks (11.5-14.5) % Plt Count (130-400) K/uL MPV (9.4-12.4) fL PT (9.0-12.0) Seconds INR (0.9-1.1) Sodium (136-145) mmol/L Potassium (3.5-5.1) mmol/L Chloride (98-107) mmol/L Carbon Dioxide (21-32) mmol/L Anion Gap (3-11) BUN (6-23) mg/dl Creatinine (0.6-1.4) mg/dl Est Cr Clr Drug Dosing ml/min Est GFR ( Amer) ml/min Est GFR (Non-Af Amer) ml/min BUN/Creatinine Ratio (10-20) Glucose (70-99(Fasting)) mg/dl Calcium (8.5-10.1) mg/dl Total Bilirubin (0.2-1.0) mg/dl AST (13-39) U/L ALT (7-52) U/L Alkaline Phosphatase (34-104) U/L Total Protein (6.0-8.3) gm/dl Albumin (3.4-5.0) gm/dl Globulin (2.5-4.0) gm/dl Albumin/Globulin Ratio (0.9-2) Procalcitonin < 0.05 (0-0.5) ng/ml Urine Color Yellow Urine Appearance Clear (Clear) Urine pH 7.5 (4.5-7.5) Ur Specific Mustang 1.008 (1.000-1.030) Urine Protein Negative (Negative) Urine Glucose (UA) Negative (Negative) Urine Ketones Negative (Negative) Urine Blood Negative (Negative) Urine Nitrite Negative (Negative) Urine Bilirubin Negative (Negative) Urine Urobilinogen Negative (Negative) Ur Leukocyte Esterase Negative (Negative) SARS-CoV-2, RNA, NAAT NEGATIVE (NEGATIVE) 08/05/22 08/05/22 Range/Units 20:50 20:50 WBC 19.44 H (4.8-10.8) K/ul RBC 4.65 L (4.70-6.10) M/uL Hgb 14.1 (14.0-18.0) g/dl Hct 39.6 L (42.0-52.0) % MCV 85.2 (80.0-100.0) fL MCH 30.3 (25.0-34.0) pg MCHC 35.6 (32.0-36.0) g/dL RDW Std Deviation 38.3 (36.4-46.3) fL RDW Coeff of Brooks 12.5 (11.5-14.5) % Plt Count 354 (130-400) K/uL MPV 8.9 L (9.4-12.4) fL PT (9.0-12.0) Seconds INR (0.9-1.1) Sodium 140 (136-145) mmol/L Potassium 4.7 (3.5-5.1) mmol/L Chloride 105 (98-107) mmol/L Carbon Dioxide 30 (21-32) mmol/L Anion Gap 5 (3-11) BUN 14 (6-23) mg/dl Creatinine 0.93 (0.6-1.4) mg/dl Est Cr Clr Drug Dosing 101.7 ml/min Est GFR ( Amer) 110.6 ml/min Est GFR (Non-Af Amer) 95.4 ml/min BUN/Creatinine Ratio 15.1 (10-20) Glucose 124 H (70-99(Fasting)) mg/dl Calcium 9.4 (8.5-10.1) mg/dl Total Bilirubin (0.2-1.0) mg/dl AST (13-39) U/L ALT (7-52) U/L Alkaline Phosphatase (34-104) U/L Total Protein (6.0-8.3) gm/dl Albumin (3.4-5.0) gm/dl Globulin (2.5-4.0) gm/dl Albumin/Globulin Ratio (0.9-2) Procalcitonin (0-0.5) ng/ml Urine Color Urine Appearance (Clear) Urine pH (4.5-7.5) Ur Specific Mustang (1.000-1.030) Urine Protein (Negative) Urine Glucose (UA) (Negative) Urine Ketones (Negative) Urine Blood (Negative) Urine Nitrite (Negative) Urine Bilirubin (Negative) Urine Urobilinogen (Negative) Ur Leukocyte Esterase (Negative) SARS-CoV-2, RNA, NAAT (NEGATIVE) PG Care Time/CCT Total # of Minutes Spent Total Time Spent with Patient: Total time spent is greater than 50% in coordination of care (as documented) at patient's floor/unit and/or counseling patient: Coding Level of Care Code 06391 SUB INP/OBS CARE 3/50MIN Diagnoses Intractable back pain M54.9 Hypertension I10 Hypertension type: essential hypertension Depression with anxiety F41.8 Hyperlipidemia E78.5 GERD (gastroesophageal reflux disease) K21.9 (1) Hypertension Hypertension type: essential hypertension Qualified Code(s): I10 - Essential (primary) hypertension
[2022-08-06] MEDS: tiZANidine HCL 4 MG TABLET PO SCH ×3 (07:43→21:44)
[2022-08-06] MEDS: METOPROLOL SUCC 25MG EXT REL TAB PO SCH (07:44)
[2022-08-06] MEDS: TELMISARTAN 40 MG TAB PO SCH (07:44)
[2022-08-06] MEDS: ASPIRIN 81 MG ECTAB PO SCH (07:44)
[2022-08-06] MEDS: ROSUVASTATIN CALCIUM 10 MG TAB PO SCH (07:44)
[2022-08-06] MEDS: amLODIPine BESYLATE 5 MG TAB PO SCH (07:45)
[2022-08-06] MEDS: busPIRone 5 MG TAB PO SCH ×3 (07:45→21:43)
[2022-08-06] MEDS: DULoxetine HCL 60 MG CAP PO SCH (07:45)
[2022-08-06] MEDS: GABAPENTIN 300 MG CAP PO SCH ×4 (07:46→21:44)
[2022-08-06] MEDS: PANTOprazole 40 MG in SYRINGE 0 ML IV SCH ×2 (08:31→21:44)
[2022-08-06] MEDS ORDERED: busPIRone 15 MG TAB PO SCH (09:00)
[2022-08-06] MEDS ORDERED: methylPREDNISolone 40 MG in SYRINGE 0 ML IV SCH (09:00)
[2022-08-06] MEDS ORDERED: SODIUM CHLORIDE 0.9% 1000ML 1,000 ML IV SCH (09:15)
--- NOTE | 2022-08-06 11:01 | Pain Management Consultation ---
Date of Consultation August 06, 2022 Assessment & Plan (1) Lumbar radiculopathy: (2) Acute low back pain: (3) Lumbar facet joint syndrome: (4) Postlaminectomy syndrome, lumbar: Plan 1. Reviewed lumbar spine MRI/pelvic findings with patient 2. Agree with utilization of IV steroids. Will increase gabapentin and add baclofen to his regimen. Continue other meds as current 3. At this point, with the patient's degree of pain and disability do not feel that interventional pain management will be sufficient for his relief thus recommend consultation with Dr. Grant for surgical options. If surgery felt not to be an option can consider a left L5-S1 transforaminal epidural steroid injection but feel that it will only provide very short-term relief and will be not sufficient for long-term coverage. 4. Thank you for this consultation. History of Present Illness Attending Physician: Pardeep Dewey MD History of Present Illness 51-year-old white male who is well-known to the pain service with history of chronic low back pain and occasional lumbar radicular pain complaint. He presented 3 times over the last week with intractable left-sided radicular symptoms along the L5 and S1 dermatomes. He reports pain is 10 out of 10 sharp stabbing shooting left side predominant at the lumbosacral junction with radiation along the left lateral thigh to his toes. He reports in addition he has pain over bilateral sacroiliac joints left equal to right. Denies any recent trauma or falls, bowel or bladder incontinence, motor weakness, foot drop, fever, chills, nuchal rigidity. He was provided with a Medrol Dosepak, gabapentin, baclofen, Oxy IR which have not been able to control his pain to a sufficient degree as an outpatient. He has had a lumbar spine and pelvic MRI with and without contrast which showed a left L5-S1 lateral disc osteophyte complex with enhancement of the left L5 nerve root. No epidural abscess, discitis, osteomyelitis noted. He states he is not able to stand secondary to pain in his left lower extremity and required help from his to present to the emergency room yesterday evening. Pain Assessment Full Body Front + Back: 1. [facility] Combined Pain Scale: 10-Worst Imaginable - Paralyzing. Decr eased consciousness due to pain. Allergies Allergy/AdvReac Type Severity Reaction Status Date / Time Sulfa (Sulfonamide Allergy Mild Nausea Verified 08/04/22 11:08 Antibiotics) Home Medications Medication Instructions Recorded Confirmed Type amlodipine 10 mg tablet 10 mg PO QAM #90 tabs 06/30/21 08/05/22 Rx telmisartan 80 mg tablet 80 mg PO QAM #90 tabs 09/06/21 08/05/22 Rx aspirin 81 mg capsule 81 mg PO QAM 12/06/21 08/05/22 History omeprazole magnesium 20 mg 20 mg PO DAILY PRN Acid Reflux 12/06/21 08/05/22 History tablet,delayed release (Prilosec OTC) rosuvastatin 10 mg tablet 10 mg PO QAM 04/27/22 08/05/22 History cyanocobalamin (vitamin B-12) 1,000 mcg PO DAILY #30 caps 04/28/22 08/05/22 Rx 1,000 mcg capsule naltrexone 50 mg tablet 50 mg PO DAILY #30 tabs 05/22/22 08/05/22 Rx buspirone 10 mg tablet 10 - 20 mg PO TID #90 tabs 06/07/22 08/05/22 Rx duloxetine 60 mg capsule,delayed 60 mg PO DAILY #30 caps 06/07/22 08/05/22 Rx release tizanidine 4 mg tablet 4 mg PO Q8H PRN muscle spasticity 06/14/22 08/05/22 Rx #30 tabs desoximetasone 0.25 % topical cream 1 applic topical BID PRN skin 06/30/22 08/06/22 Rx irritation #15 grams metoprolol succinate 25 mg 25 mg PO QAM #30 tabs 07/11/22 08/05/22 Rx tablet,extended release 24 hr celecoxib 200 mg capsule (Celebrex) 200 mg PO DAILY PRN Pain 08/04/22 08/05/22 History gabapentin 300 mg capsule 300 mg PO DIRECTED #60 caps 08/04/22 08/05/22 Rx methylprednisolone 4 mg tablets in 4 mg PO DIRECTED #21 ea 08/04/22 08/05/22 Rx a dose pack Patient History Medical History Acute low back pain Alcohol use disorder resolved per pt Arthritis lumbar region Cognitive impairment MOST RECENT HEAD INJURY (5 YEARS AGO) on occasion Concussion with no loss of consciousness LAST EVENT 5 YEARS AGO Degenerative disc disease Depression with anxiety History of COVID-27 Jul 2019 > can't recall symptoms Hyperlipidemia Hypertension follows Dr. Bacon Low back pain Osteoarthritis Postconcussion syndrome LAST EVENT 5 YEARS AGO Surgical History Family history of reaction to anesthesia MOTHER-SLOW TO WAKE UP H/O shoulder surgery rotator cuff repair History of arthroscopy RT KNEE History of colonoscopy History of left hip replacement (~11/2019) History of left inguinal hernia repair History of lumbar surgery L5-S1 surgery [address] Grant History of tooth extraction Family History Mother Hypertension History of blood clots Father Hypertension Denies family history of Ovarian cancer Prostate cancer Myocardial infarction Breast cancer Colorectal cancer Social History Smoking Status: Never smoker Second Hand Exposure: No; Do You Dip or Chew Tobacco: Yes; Tobacco Cessation Education Requested by Patient: No Hx Alcohol Use: Yes Alcohol type: beer Hx Substance Use: No Preferred Language: Gambian Communication Ability: Effective Visual Impairment: No Limitations Hearing Ability: Normal Proposal Coordinator Required: No Beliefs That Will Affect Care: None marital status: Current Living Situation: Family current occupational status: employed 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 Recent memory appears grossly intact Eyes: Pupils are equally round and reactive to light with normal size pupils, eyelids appear normal Ear, nose, mouth, and throat: Moist nasal and oral membranes, lips and tongues appear normal, no external ear abnormalities are noted Neck: The trachea is midline without deviation and no thyromegaly is noted Respiratory: Normal respiratory effort without distress, no audible wheezes or rhonchi CV: Normal S1 and S2, 2+ dorsalis pedis and posterior tibial pulses bilaterally Chest: Deferred Musculoskeletal: Head is normocephalic and atraumatic, gait not observed, patient is not able to logroll in bed without significant difficulty Cervical: Lordotic curve: Normal Range of motion is normal with extension, flexion, side-bending, rotation Strength: Strength is grossly equal bilaterally with 5 out of 5 strength in all planes Lumbar: Lordotic curve: Slight loss of lumbar lordosis Range of motion is decreased with extension, flexion, side-bending, rotation secondary to pain Tenderness: Significantly tender over the axial midline left equal to right Facet provocation: Minimally positive bilaterally Straight leg raise: Negative on the right. Positive straight leg raise at 15 degrees on the left Step-off injuries: None Strength: Strength is 5 out of 5 on the right. Left lower extremities strength 5 out of 5 quad/anterior tibialis 4+ out of 5 plantar dorsiflexion. Sensation of lower extremities: Intact bilaterally Deep tendon reflexes: Rated at 2+ in bilateral L4 and S1 Myofascial spasm: Moderate lumbar paravertebral spinous musculature spasm. No discrete trigger points noted Greater trochanters: Nontender bilaterally Sacroiliac joints: Significantly tender bilaterally left slightly greater than left Pathologic reflexes noted: None Skin: No rashes, lesions, ulcers, or induration noted. Injection sites remain well-healed Neuro: No nystagmus noted, the tongue is midline, the patient is able to rotate their head bilaterally : Deferred Results (Pain Clinic) Diagnostic Review MRI: enhanced, non enhanced, reports reviewed, images reviewed and findings discussed with patient MRI Findings: 07/31/22 MRI OF THE LUMBAR SPINE WITH AND WITHOUT CONTRAST CLINICAL HISTORY: Status post ablation of bilateral L4/L5/S1 nerve roots. Bilateral pain. COMPARISON STUDY: Lumbar spine MRI November 16, [address] of the lumbar spine performed earlier today. TECHNIQUE: Utilizing a 1.5 Raquel magnet and dedicated coil, multiplanar, multiecho imaging of the lumbar spine was performed before and after uneventful IV administration of 9 mL of Gadavist. FINDINGS: For purposes of numbering on this exam, the L5-S1 disc space is assigned to axial image 28 of 31. Alignment of the lumbar spine is anatomic. Vertebral body heights are maintained. There is no marrow edema or marrow replacement. There is no intracanalicular mass or fluid collection. The conus terminates at the lower T12 level. Note is made of increased enhancement and apparent thickening of the exiting left L5 nerve root. This corresponds to the finding on lumbar spine CT from earlier today. Post contrast images also demonstrate apparent asymmetric enhancement of the left iliacus muscles shown on axial image 30 of . This could be artifactual. No associated fluid collection is noted. This is partially imaged on this exam. No fluid collection is identified on this exam. There is no evidence for discitis or osteomyelitis within the lumbar spine. L1-2: The central canal and neural foramen are patent. L2-3: There is facet arthrosis. The central canal and neural foramen are patent. L3-4: Severe facet arthrosis is present. There is mild disc bulge. There is mild narrowing of the central canal, lateral recesses and the neural foramen. This is similar to previous MRI. L4-5: Moderate disc space narrowing is noted. This is increased since previous MRI. There is associated disc bulge which has also increased. There is mild narrowing of the central canal and moderate narrowing of both lateral recesses. Moderate to severe right neural foraminal stenosis is present. There is mild left neural foraminal stenosis. L5-S1: Moderate disc space narrowing is noted. The central canal is patent. The re is moderate facet arthrosis. Moderate to severe left neural foraminal stenosis is noted with possible far left lateral disc osteophyte complex. This could account for enhancement of the nerve root with apparent thickening. IMPRESSION: 1. Moderate multilevel degenerative changes within the lumbar spine with mild progression since MRI of November 16, 2020. 2. No evidence for discitis or osteomyelitis within lumbar spine. No epidural abscess. 3. Increased enhancement and apparent thickening of the exiting left L5 nerve root. This may be on a degenerative basis and related to a far left lateral disc osteophyte complex with impingement upon the nerve root. Nonspecific inflammation of this nerve root could appear similar. No associated fluid collection. 4. Apparent asymmetric enhancement of the left iliacus muscle, partially imaged on this exam. This finding may be artifactual. However, an inflammatory process cannot be excluded. Findings discussed with Dr. Pedroza at time of dictation. 07/31/22 MR pelvis wo con HISTORY: 51 years-old Male eval for left iliacus mass/process COMPARISON: CT and MRI lumbar spine studies 07/31/2022, MRI pelvis 09/05/2019 TECHNIQUE: Multiplanar multisequence MRI of the pelvis was obtained without the use of IV contrast. FINDINGS: No gross abnormality identified on the sane rn localizer images. Study is motion degraded. Moderate degenerative changes within the imaged lower lumbar spine. No acute fracture, subluxation, bone marrow edema or marrow replacing process identified. Artifact related to the left hip total joint arthroplasty. Mild osteoarthritis of the right hip. The bilateral psoas and iliacus muscles appear unremarkable. No acute intrapelvic abnormality identified. Unremarkable soft tissues. IMPRESSION: 1. Unremarkable exam. No acute fracture. 2. Left hip total joint arthroplasty limits evaluation of the adjacent structures. CT: non enhanced, reports reviewed, images reviewed and findings discussed with patient CT Findings: 07/31/22 ADDENDUM Addendum: Note is made of apparent thickening and stranding adjacent to the exiting left L5 nerve root shown on axial image 282 of 357. This represents a nonspecific finding which can be assessed on MRI which has been ordered. Electronically signed by: Pancho Lewis M.D. 07/31/2022 7:53 PM ADDENDUM END LUMBAR SPINE CT WITHOUT CONTRAST CLINICAL HISTORY: Lumbar spine pain. COMPARISON STUDY: Lumbar spine radiographs October 26, 2020 and lumbar spine November 16, 2020. TECHNIQUE: Axial images of the lumbar spine were obtained without IV contrast. Sagittal and coronal reconstructions were viewed. Automated exposure control was utilized for the study. A dose lowering technique was utilized adhering to the principles of ALARA. FINDINGS: Vertebral body heights are maintained. No fracture within the lumbar spine is present. There are no suspicious osseous lesions. Moderate multilevel facet arthrosis is noted. There is mild to moderate disc space narrowing with osteophytosis and vacuum disc phenomenon at L4-L5 and L5-S1. Slight anterolisthesis of L3 on L4 is unchanged. Paravertebral soft tissues are unremarkable. The central canal and neural foramen are suboptimally assessed given CT technique. Bilateral renal calculi measure up to 5 mm. There is no hydronephrosis. No calculi are identified within visualized portions of the ureters. IMPRESSION: 1. No acute lumbar spine fracture or subluxation. 2. No significant change in moderate multilevel degenerative changes within the lumbar spine. 3. Bilateral nephrolithiasis. CT: non enhanced, reports reviewed and findings discussed with patient CT Findings: CT Findings: 07/31/22 ADDENDUM Addendum: Note is made of apparent thickening and stranding adjacent to the exiting left L5 nerve root shown on axial image 282 of 357. This represents a nonspecific finding which can be assessed on MRI which has been ordered. Electronically signed by: Pancho Lewis M.D. 07/31/2022 7:53 PM ADDENDUM END LUMBAR SPINE CT WITHOUT CONTRAST CLINICAL HISTORY: Lumbar spine pain. COMPARISON STUDY: Lumbar spine radiographs October 26, 2020 and lumbar spine November 16, 2020. TECHNIQUE: Axial images of the lumbar spine were obtained without IV contrast. Sagittal and coronal reconstructions were viewed. Automated exposure control was utilized for the study. A dose lowering technique was utilized adhering to the principles of ALARA. FINDINGS: Vertebral body heights are maintained. No fracture within the lumbar spine is present. There are no suspicious osseous lesions. Moderate multilevel facet arthrosis is noted. There is mild to moderate disc space narrowing with osteophytosis and vacuum disc phenomenon at L4-L5 and L5-S1. Slight anterolisthesis of L3 on L4 is unchanged. Paravertebral soft tissues are unremarkable. The central canal and neural foramen are suboptimally assessed given CT technique. Bilateral renal calculi measure up to 5 mm. There is no hydronephrosis. No calculi are identified within visualized portions of the ureters.
--- NOTE | 2022-08-06 11:29 | Orthopedic Consultation ---
Date of Consultation August 06, 2022 Assessment & Plan (1) Lumbar disc herniation with radiculopathy: Assessment foraminal extraforaminal disc herniation L5-S1 the left with progressive motor deficit and radiculopathy. Plan at this time the patient is failed extensive course of nonoperative care is marked plan status. We discussed further injections which he is no longer interested in as they fail to provide any relief. Will consider surgical invention. Is completely reasonable in light of his severe pain and progressive motor deficit. He would require revision decompression and complete facetectomy L5-S1 the left to safely and adequately access the L5 nerve root and address the disc osteophyte compression. This would create iatrogenic instability socially requiring fusion. Risk- benefit pros cons returns well in detail. Risk include but not limited to anesthesia bone stroke paralysis nerve damage blood loss requiring transfusion infection requiring reoperation but was unremarkable of his radiculopathy. At this time we will make him n.p.o. after midnight and plan for surgery tomorrow. History of Present Illness Reason for Consultation: Worsening back and severe left leg pain Attending Physician: Pardeep Dewey MD History of Present Illness This is a 51-year-old male who presents the emergency room now for the third time with marked decline in status. He has severe back pain radiating to left buttock posterior thigh into his foot and great toe. It has been progressive in nature. He is undergone injections in the past did not provide any long-term relief. He states his symptoms are worse than they have been previously. All pain medications no longer providing any relief. He had marked decline in ability to ambulate secondary to the pain. Allergies Allergy/AdvReac Type Severity Reaction Status Date / Time Sulfa (Sulfonamide Allergy Mild Nausea Verified 08/04/22 11:08 Antibiotics) Home Medications Medication Instructions Recorded Confirmed Type amlodipine 10 mg tablet 10 mg PO QAM #90 tabs 06/30/21 08/05/22 Rx telmisartan 80 mg tablet 80 mg PO QAM #90 tabs 09/06/21 08/05/22 Rx aspirin 81 mg capsule 81 mg PO QAM 12/06/21 08/05/22 History omeprazole magnesium 20 mg 20 mg PO DAILY PRN Acid Reflux 12/06/21 08/05/22 History tablet,delayed release (Prilosec OTC) rosuvastatin 10 mg tablet 10 mg PO QAM 04/27/22 08/05/22 History cyanocobalamin (vitamin B-12) 1,000 mcg PO DAILY #30 caps 04/28/22 08/05/22 Rx 1,000 mcg capsule naltrexone 50 mg tablet 50 mg PO DAILY #30 tabs 05/22/22 08/05/22 Rx buspirone 10 mg tablet 10 - 20 mg PO TID #90 tabs 06/07/22 08/05/22 Rx duloxetine 60 mg capsule,delayed 60 mg PO DAILY #30 caps 06/07/22 08/05/22 Rx release tizanidine 4 mg tablet 4 mg PO Q8H PRN muscle spasticity 06/14/22 08/05/22 Rx #30 tabs desoximetasone 0.25 % topical cream 1 applic topical BID PRN skin 06/30/22 08/06/22 Rx irritation #15 grams metoprolol succinate 25 mg 25 mg PO QAM #30 tabs 07/11/22 08/05/22 Rx tablet,extended release 24 hr celecoxib 200 mg capsule (Celebrex) 200 mg PO DAILY PRN Pain 08/04/22 08/05/22 History gabapentin 300 mg capsule 300 mg PO DIRECTED #60 caps 08/04/22 08/05/22 Rx methylprednisolone 4 mg tablets in 4 mg PO DIRECTED #21 ea 08/04/22 08/05/22 Rx a dose pack Patient History Medical History Acute low back pain Alcohol use disorder resolved per pt Arthritis lumbar region Cognitive impairment MOST RECENT HEAD INJURY (5 YEARS AGO) on occasion Concussion with no loss of consciousness LAST EVENT 5 YEARS AGO Degenerative disc disease Depression with anxiety History of COVID-27 Jul 2019 > can't recall symptoms Hyperlipidemia Hypertension follows Dr. Bacon Low back pain Osteoarthritis Postconcussion syndrome LAST EVENT 5 YEARS AGO Surgical History Family history of reaction to anesthesia MOTHER-SLOW TO WAKE UP H/O shoulder surgery rotator cuff repair History of arthroscopy RT KNEE History of colonoscopy History of left hip replacement (~11/2019) History of left inguinal hernia repair History of lumbar surgery L5-S1 surgery [address] Grant History of tooth extraction Family History Mother Hypertension History of blood clots Father Hypertension Denies family history of Ovarian cancer Prostate cancer Myocardial infarction Breast cancer Colorectal cancer Social History Smoking Status: Never smoker Second Hand Exposure: No; Do You Dip or Chew Tobacco: Yes; Tobacco Cessation Education Requested by Patient: No Hx Alcohol Use: Yes Alcohol type: beer Hx Substance Use: No Preferred Language: Sami Communication Ability: Effective Visual Impairment: No Limitations Hearing Ability: Normal Shale Miner Blasting Required: No Beliefs That Will Affect Care: None marital status: Current Living Situation: Family current occupational status: employed 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 He demonstrates significant tension signs with straight leg raising on the left negative on the right. He has 4/5 extensor houses longus and dorsiflexion on the left compared to 5 5 on the right. Plantarflexion appears to be symmetric. There is sensory deficit left compared to right. He can reflexes globally diminished. Results & Data ([facility] [place]) Vital Signs (Past 12 Hours) Vital Signs Temp Pulse Resp BP Pulse Ox O2 Del Method 08/06/22 07:28 36.3 C L 70 18 133/84 98 Room Air
--- NOTE | 2022-08-06 12:02 | Anesthesiology Consultation ---
Date of Service August 06, 2022 Assessment & Plan Chart Review Chart Review: Acceptable Risk for Surgery Consults Requested none Proposed Anesthesia Anesthesia Type: General History Height/Weight Height: 5 ft 6 in Weight: 90.8 kg Allergies Allergy/AdvReac Type Severity Reaction Status Date / Time Sulfa (Sulfonamide Allergy Mild Nausea Verified 08/04/22 11:08 Antibiotics) Medications Home Medications Medication Instructions Recorded Confirmed Last Taken amlodipine 10 mg tablet 10 mg PO QAM #90 tabs 06/30/21 08/05/22 12/07/21 telmisartan 80 mg tablet 80 mg PO QAM #90 tabs 09/06/21 08/05/22 12/07/21 aspirin 81 mg capsule 81 mg PO QAM 12/06/21 08/05/22 12/07/21 omeprazole magnesium 20 mg 20 mg PO DAILY PRN Acid Reflux 12/06/21 08/05/22 Unknown tablet,delayed release (Prilosec OTC) rosuvastatin 10 mg tablet 10 mg PO QAM 04/27/22 08/05/22 Unknown cyanocobalamin (vitamin B-12) 1,000 mcg PO DAILY #30 caps 04/28/22 08/05/22 Unknown 1,000 mcg capsule naltrexone 50 mg tablet 50 mg PO DAILY #30 tabs 05/22/22 08/05/22 Unknown buspirone 10 mg tablet 10 - 20 mg PO TID #90 tabs 06/07/22 08/05/22 Unknown duloxetine 60 mg capsule,delayed 60 mg PO DAILY #30 caps 06/07/22 08/05/22 Unknown release tizanidine 4 mg tablet 4 mg PO Q8H PRN muscle spasticity 06/14/22 08/05/22 Unknown #30 tabs desoximetasone 0.25 % topical cream 1 applic topical BID PRN skin 06/30/22 08/06/22 Unknown irritation #15 grams metoprolol succinate 25 mg 25 mg PO QAM #30 tabs 07/11/22 08/05/22 Unknown tablet,extended release 24 hr celecoxib 200 mg capsule (Celebrex) 200 mg PO DAILY PRN Pain 08/04/22 08/05/22 Unknown gabapentin 300 mg capsule 300 mg PO DIRECTED #60 caps 08/04/22 08/05/22 Unknown methylprednisolone 4 mg tablets in 4 mg PO DIRECTED #21 ea 08/04/22 08/05/22 Unknown a dose pack Active Medications Generic Name Dose Route Start Last Admin Trade Name Freq PRN Reason Stop Dose Admin Amlodipine Besylate 10 mg 08/06/22 09:00 08/06/22 07:45 Amlodipine Besylate 5 Mg Tab PO 09/05/22 08:59 10 mg QAM ASHLEY Administration Aspirin 81 mg 08/06/22 09:00 08/06/22 07:44 Aspirin 81 Mg Ectab PO 09/05/22 08:59 81 mg QAM ASHLEY Administration Buspirone HCl 10 mg 08/06/22 09:00 08/06/22 07:45 Buspirone 5 Mg Tab PO 09/05/22 08:59 10 mg TID ASHLEY Administration Duloxetine HCl 60 mg 08/06/22 09:00 08/06/22 07:45 Duloxetine Hcl 60 Mg Cap PO 09/05/22 08:59 60 mg DAILY ASHLEY Administration Gabapentin 300 mg 08/06/22 10:00 08/06/22 09:52 Gabapentin 300 Mg Cap PO 09/05/22 09:59 Not Given TID ASHLEY Hydromorphone HCl 1 mg 08/05/22 21:25 08/06/22 11:14 Hydromorphone Inj 1 Mg/Ml Syringe IV 08/19/22 21:24 1 mg Q6H PRN Administration Pain(4,5,6+) Acetaminophen 1,000 mg in 100 mls @ 400 mls/hr 08/06/22 06:00 08/06/22 05:52 Ofirmev IV 08/09/22 05:59 Infused Q8H ASHLEY Infusion Pantoprazole Sodium 40 mg/ 10 mls @ 5 mls/min 08/05/22 22:00 08/06/22 08:31 Syringe IV 09/04/22 21:59 5 mls/min DAILY@1100 ASHLEY Administration Methylprednisolone 40 mg/ 0.64 mls @ 1.5 mls/min 08/06/22 09:00 08/06/22 08:05 Syringe IV 09/05/22 07:59 Not Given Q6H ASHLEY Metoprolol Succinate 25 mg 08/06/22 09:00 08/06/22 07:44 Metoprolol Succ 25mg Ext Rel Tab PO 09/05/22 08:59 25 mg QAM ASHLEY Administration Oxycodone HCl 10 mg 08/05/22 21:25 08/06/22 08:35 Oxycodone Hcl Ir 5 Mg Tab (Immediate Release) PO 08/19/22 21:24 10 mg Q4H PRN Administration Pain (1,2,3) Rosuvastatin Calcium 10 mg 08/06/22 09:00 08/06/22 07:44 Rosuvastatin Calcium 10 Mg Tab PO 09/05/22 08:59 10 mg QAM ASHLEY Administration Telmisartan 80 mg 08/06/22 09:00 08/06/22 07:44 Telmisartan 40 Mg Tab PO 09/05/22 08:59 80 mg QAM ASHLEY Administration Tizanidine HCl 4 mg 08/06/22 09:00 08/06/22 07:43 Tizanidine Hcl 4 Mg Tablet PO 09/05/22 08:59 4 mg TID ASHLEY Administration NPO Date Last Intake of Fluids: 08/05/22 Time Last Intake of Fluids: 23:59 Date Last Intake of Solids: 08/05/22 Time Last Intake of Solids: 23:59 Past Medical History Medical History (Updated 08/06/22 @ 12:02 by April Pedroza DO) Alcohol use disorder resolved per pt Arthritis lumbar region B12 deficiency CAD (coronary artery disease) Cognitive impairment MOST RECENT HEAD INJURY (5 YEARS AGO) on occasion Concussion with no loss of consciousness LAST EVENT 5 YEARS AGO Degenerative disc disease Depression with anxiety GERD (gastroesophageal reflux disease) History of COVID-27 Jul 2019 > can't recall symptoms Hyperlipidemia Hypertension follows Dr. Bacon Low back pain Lumbar back pain with radiculopathy affecting left lower extremity Osteoarthritis Postconcussion syndrome LAST EVENT 5 YEARS AGO Exercise / Class Metabolic Activity II 4-5 Yardwork/Stairs/Walk up hill Past Family History Family History Mother Hypertension History of blood clots Father Hypertension Denies family history of Ovarian cancer Prostate cancer Myocardial infarction Breast cancer Colorectal cancer Past Surgical History Surgical History (Updated 08/06/22 @ 11:59 by April Pedroza DO) Family history of reaction to anesthesia MOTHER-SLOW TO WAKE UP H/O shoulder surgery rotator cuff repair History of arthroscopy RT KNEE History of colonoscopy History of left hip replacement (~11/2019) History of left inguinal hernia repair History of lumbar surgery L5-S1 surgery [address] Grant History of tooth extraction Past Anesthesia History No Hx of Anesthesia Complications and No Family Hx of Anesthesia Complications History of PONV No Hx of PONV and No Hx of Motion Sickness Social History Smoking Status: Never smoker tobacco type: smokeless tobacco Do You Dip or Chew Tobacco: Yes Hx Alcohol Use: Yes Alcohol type: beer alcohol intake frequency: other Alcohol Intake Frequency Comment: Abuse of alcohol over 4 years ago. Hx Substance Use: No substance use type: does not use Substance Use Type Other:: HX of alcohol abuse 4 years ago Review of Systems ROS Unobtainable: All systems reviewed & are unremarkable except as noted in HPI & below Physical Exam Vital Signs Last Vital Signs Temp 36.3 C L 08/06/22 07:28 Pulse 70 08/06/22 07:28 Resp 18 08/06/22 07:28 BP 133/84 08/06/22 07:28 Pulse Ox 98 08/06/22 07:28 O2 Del Method 08/06/22 07:28 ENMT Mouth: no TMJ abnormality Thyromental Distance: > or= 3.5 Finger Breadths Mallampati Class: II Neck normal visual inspection, trachea midline and + facial hair; neck extension not limited Respiratory normal respiratory effort Auscultation: lungs clear to auscultation bilaterally Cardiovascular Rate/Rhythm: regular rate and regular rhythm Heart Sounds: no murmur Musculoskeletal Spine: normal cervical ROM Extremities: + limited ROM of extremities (pain LLE limits movement) Neurologic moves all extremities Psychiatric Orientation: alert and oriented x 3 Testing Laboratory Results 08/06/22 05:24 08/06/22 05:24 PT 10.8 Seconds (9.0-12.0) 08/06/22 05:24 INR 1.0 (0.9-1.1) 08/06/22 05:24 Urine Color Yellow 08/05/22 22:21 Urine Appearance Clear (Clear) 08/05/22 22:21 Urine pH 7.5 (4.5-7.5) 08/05/22 22:21 Ur Specific [place] 1.008 (1.000-1.030) 08/05/22 22:21 Urine Protein Negative (Negative) 08/05/22 22:21 Urine Glucose (UA) Negative (Negative) 08/05/22 22:21 Urine Ketones Negative (Negative) 08/05/22 22:21 Urine Nitrite Negative (Negative) 08/05/22 22:21 Ur Leukocyte Esterase Negative (Negative) 08/05/22 22:21 Electrocardiogram Date: 10/14/21 Findings: + NSR @ (78) Echocardiogram Date: 10/25/21 EF: 65-70% LV Function: normal RWMA: + none Valvular Disease: + no significant valvular disease
[2022-08-06] MEDS: DOCUSATE SODIUM 100 MG CAP PO SCH ×2 (13:20→21:43)
[2022-08-06] MEDS: POLYETHYLENE (MIRALAX) 17 GM PACK PO SCH (13:21)
--- NOTE | 2022-08-06 13:42 | XRay Report ---
XR chest 1V portable CLINICAL HISTORY: Preoperative evaluation. COMPARISON STUDY: Chest radiograph and chest CT October 12, 2021. FINDINGS: Lung volumes are mildly diminished. This is unchanged. Lungs are clear. There is no pneumot horax or pleural effusion. Mild cardiomegaly is unchanged. Mediastinal contours are normal. There is no evidence for pulmonary edema. IMPRESSION: No acute cardiopulmonary findings. Stable mild cardiomegaly. ACT 112: Negative or not required by law. Electronically signed by: Pancho Lewis M.D. 08/06/2022 1:39 PM
--- NOTE | 2022-08-06 14:15 | Ultrasound Report ---
RENAL ULTRASOUND CLINICAL HISTORY: intractable back pain, hx kidney stones, eval COMPARISON STUDY: CT of the abdomen and pelvis April 26, 2022. TECHNIQUE: Sonography of the kidneys and the urinary bladder was performed. FINDINGS: There is no hydronephrosis. The right kidney measures 10.4 cm in maximal dimension and the left measures 11.1 cm. There is a 1.3 cm cyst within the midpole the right kidney. Both ureteral jets were identified. Kidneys are partially obscured due to suboptimal penetration. No calculi are identi fied by sonography. IMPRESSION: 1. No hydronephrosis. 2. No renal calculi identified although sensitivity diminished on this exam due to suboptimal penetra tion. ACT 112: Negative or not required by law. Electronically signed by: Pancho Lewis M.D. 08/06/2022 2:13 PM
[2022-08-06] MEDS ORDERED: HYDROmorphone INJ 0.5 MG/0.5 ML SYR IV STA (14:17)
[2022-08-06] MEDS: BACLOFEN 10 MG TAB PO PRN ×2 (14:32→18:11)
[2022-08-06] MEDS ORDERED: HYDROmorphone INJ 1 MG/ML SYRINGE IV STA ×2 (18:32→19:43)
[2022-08-06] MEDS ORDERED: diazePAM 5 MG TABLET PO ONE (18:42)
[2022-08-06] MEDS ORDERED: HYDROmorphone INJ 1 MG/ML SYRINGE IV PRN (18:48)
[2022-08-07] MEDS: ACETAMINOPHEN 1,000 MG/100 ML VIAL IV SCH ×3 (05:06→22:24)
[2022-08-07] MEDS: oxyCODONE HCL IR 5 MG TAB (IMMEDIATE RELEASE) PO PRN ×3 (06:02→23:19)
[2022-08-07 07:40] LABS: Hematocrit (blood only) 36.5 % (42.0-52.0); Hemoglobin 12.5 g/dl (14.0-18.0); Mean Corpuscular Hemoglobin 28.7 pg (25.0-34.0); Mean Corpuscular Hgb Conc 34.2 g/dL (32.0-36.0); Mean Corpuscular Volume 83.9 fL (80.0-100.0); Mean Platelet Volume 9.1 fL (9.4-12.4); Platelet Count 307 K/uL (130-400); RDW Coefficient of Variation 12.3 % (11.5-14.5); RDW Standard Deviation 37.8 fL (36.4-46.3); Red Blood Count 4.35 M/uL (4.70-6.10); White Blood Count 17.45 K/ul (4.8-10.8)
[2022-08-07 08:01] LABS: Estimated Average Glucose 114 mg/dl; Hemoglobin A1C 5.6 % (4.5-5.6)
[2022-08-07 08:19] LABS: Calcium 8.5 mg/dl (8.5-10.1); Magnesium 1.9 mg/dl (1.7-2.4); Potassium 3.6 mmol/L (3.5-5.1)
[2022-08-07 08:24] LABS: BUN Creatinine Ratio 23.8 (10-20); Est GFR (African American) 118.3 ml/min; Est GFR (Non-African American) 102.1 ml/min
--- NOTE | 2022-08-07 08:30 | Hospitalist Progress Note ---
Date of Service August 07, 2022 Assessment & Plan (1) Intractable back pain: Plan: Patient has a long history of previous back pain and follows with [facility] pain management clinic . 3rd visit to ER in over a week for symptoms. Failed conservative treatment outpatient. Thankfully no cauda equina symptoms. WBC elevation from prior steroids, procal NEGATIVE Continue pain control: * Increased Solumedrol to 40mg Q6H (got 10mg IV Decadron in ER) -- placed on hold per Dr Grant request 08/06, will restart post-op * Continue increased gabapentin to BID, * Tizanidine 4mg TID * Continue Tylenol, Oxycodone, Dilaudid prn * lidocaine patch, heat Of note, had been taking ibuprofen 800mg Q4H at home -- avoiding further NSAIDs. Placed on BID PPI Bowel regimen -- moved bowels 08/06, scheduled colace BID and daily miralax. Monitor for constipation w/ pain medications Pain management consulted ==> pain management increased gabapentin to TID and added baclofen to regimen, does not feel injection to provide sufficient relief Orthopedic Spine Surgery consulted ==> Dr Grant planning for surgical intervention today 08/07 Given Valium 5mg PO x 1 overnight, additional dosing of dilaudid. Changed dilaudid to 1-2mg Q3H based on pain last evening Currently NPO for surgery Place on NS +20k @ 80cc/hr while awaiting surgery Will need PT/OT evals post-op -- confirmed can go w/ auth pending. Changed to full admit (2) Hypertension: Plan: BP stable, 121/76 Continue amlodipine, metoprolol, and telmisartan --> plan to hold telmisartan post-op (order placed to hold for AM dose until eval BP/Cr) Monitor (3) Depression with anxiety: Plan: Continue Duloxetine and Buspar (4) Hyperlipidemia: Plan: Conitnue statin (5) GERD (gastroesophageal reflux disease): Plan: Will place him on 40 mg IV pantoprazole daily for stress ulcer PPX (on omeprazole prn reflux at home) Increase to BID given complaints of reflux as well as recent NSAID use -- no further issues reported Plan NPO for surgery today changed to full admission Admission and Anticipated Discharge Date Admission Date: August 05, 2022 Supervising Physician Co-Signing Physician Notes The patient was not seen by me. Chart reviewed. Case discussed with ANAY Rod. Agree with assessment and plan Subjective eval this morning, had a rough night waiting for pain medication, but improved this morning. Discussed holding steroids could have caused worsening pain but surgery wanting them to be held until after surgery. pain rated 5/10 currently awaiting surgery no chest pain/shortness of breath/abdominal pain or nausea wanting to lay flat to prevent worsening of his back pain. no loss of bowel/bladder. Last BM 08/05. Passing gas. Questions/concerns addressed-- checking to ensure no issues w/ insurance for surgery to occur today. Changed to full admission. Review of Systems Review of Systems: All systems reviewed & are unremarkable except as noted in HPI & below Physical Exam Physical Exam: General: WD obese male laying flat in bed, sleeping initially upon entry, at bedside, NAD HEENT: head normocephalic, mm slightly dry, trachea midline Resp: diminished bases, no w/c, on room air 96% CV: RRR, no m/r/g, no pitting edema/calf tenderness GI: +BS, obese/distended but nontender on exam, no guarding/rebound MSK/Neuro: follows commands, no slurred speech/facial droop, strength equal UE LE with decreased strength with dorsiflexion/plantar flexion on the left compared to the right (possibly slightly worse than day prior), moderate lumbar muscle tightness pulses palpable Psych: AOx3, sleepy and just medicated for pain, cooperative with care but requesting not to move much due to pain Skin: warm, dry, perfused Results & Data Results & Data ([facility]) Vital Signs (Past 12 Hours) Vital Signs Temp Pulse Resp BP Pulse Ox Pulse Ox O2 Del Method 08/07/22 07:22 36.5 C 64 16 121/76 96 Room Air 08/06/22 21:40 Room Air 08/06/22 21:40 97 08/06/22 22:45 36.7 C 74 20 130/80 97 Room Air O2 Del Method 08/07/22 07:22 08/06/22 21:40 08/06/22 21:40 Room Air 08/06/22 22:45 Laboratory Results 08/07/22 08/07/22 08/07/22 Range/Units 06:56 06:56 06:56 WBC 17.45 H (4.8-10.8) K/ul RBC 4.35 L (4.70-6.10) M/uL Hgb 12.5 L (14.0-18.0) g/dl Hct 36.5 L (42.0-52.0) % MCV 83.9 (80.0-100.0) fL MCH 28.7 (25.0-34.0) pg MCHC 34.2 (32.0-36.0) g/dL RDW Std Deviation 37.8 (36.4-46.3) fL RDW Coeff of Brooks 12.3 (11.5-14.5) % Plt Count 307 (130-400) K/uL MPV 9.1 L (9.4-12.4) fL Sodium 135 L (136-145) mmol/L Potassium 3.6 (3.5-5.1) mmol/L Chloride 102 (98-107) mmol/L Carbon Dioxide 30 (21-32) mmol/L Anion Gap 3 (3-11) BUN 20 (6-23) mg/dl Creatinine 0.84 (0.6-1.4) mg/dl Est Cr Clr Drug Dosing 111.0 ml/min Est GFR ( Amer) 118.3 ml/min Est GFR (Non-Af Amer) 102.1 ml/min BUN/Creatinine Ratio 23.8 H (10-20) Glucose 104 H (70-99(Fasting)) mg/dl Estimat Average Glucose 114 mg/dl Hemoglobin A1c 5.6 (4.5-5.6) % Calcium 8.5 (8.5-10.1) mg/dl Magnesium 1.9 (1.7-2.4) mg/dl PG Care Time/CCT Total # of Minutes Spent Total Time Spent with Patient: Total time spent is greater than 50% in coordination of care (as documented) at patient's floor/unit and/or counseling patient: Coding Level of Care Code 52343 SUB INP/OBS CARE 2/35MIN Diagnoses Intractable back pain M54.9 Hypertension I10 Hypertension type: essential hypertension Depression with anxiety F41.8 Hyperlipidemia E78.5 GERD (gastroesophageal reflux disease) K21.9 (1) Hypertension Hypertension type: essential hypertension Qualified Code(s): I10 - Essential (primary) hypertension
[2022-08-07] MEDS ORDERED: NSS + 20MEQ KCL 20 MEQ/1,000 ML BAG IV SCH (09:00)
[2022-08-07] MEDS: HYDROmorphone INJ 2 MG/ML SYR/VIAL IV PRN ×2 (09:09→12:26)
--- NOTE | 2022-08-07 10:03 | Electrocardiogram Report ---
Test Reason : Blood Pressure : / mmHG Vent. Rate : 060 BPM Atrial Rate : 060 BPM P-R Int : 164 ms QRS Dur : 082 ms QT Int : 418 ms P-R-T Axes : 055 038 033 degrees QTc Int : 418 ms Normal sinus rhythm Nonspecific ST and T wave abnormality Abnormal ECG When compared with ECG of 12-OCT-2021 12:10, Criteria for Anterior infarct are no longer Present Criteria for Inferior infarct are no longer Present Confirmed by Jossue Harry ([id number]) on 08/07/2022 10:02:45 AM Referred By: REFERRED SELF Confirmed By:Jossue Harry
[2022-08-07] MEDS: METOPROLOL SUCC 25MG EXT REL TAB PO SCH (10:10)
[2022-08-07] MEDS: amLODIPine BESYLATE 5 MG TAB PO SCH (10:10)
[2022-08-07] MEDS: tiZANidine HCL 4 MG TABLET PO SCH ×2 (10:10→13:12)
[2022-08-07] MEDS: TELMISARTAN 40 MG TAB PO SCH (10:11)
[2022-08-07] MEDS: GABAPENTIN 300 MG CAP PO SCH ×3 (10:45→20:38)
[2022-08-07] MEDS: busPIRone 5 MG TAB PO SCH ×3 (10:45→20:38)
[2022-08-07] MEDS: DULoxetine HCL 60 MG CAP PO SCH (10:45)
[2022-08-07] MEDS: ASPIRIN 81 MG ECTAB PO SCH (10:45)
[2022-08-07] MEDS: DOCUSATE SODIUM 100 MG CAP PO SCH (10:45)
[2022-08-07] MEDS: POLYETHYLENE (MIRALAX) 17 GM PACK PO SCH (10:46)
[2022-08-07] MEDS: ROSUVASTATIN CALCIUM 10 MG TAB PO SCH (10:46)
[2022-08-07] MEDS: PANTOprazole 40 MG in SYRINGE 0 ML IV SCH (11:13)
[2022-08-07] MEDS ORDERED: ONDANSETRON INJ 2 MG/ML 2 ML VIAL IV PRN ×2 (13:34→17:41)
[2022-08-07] MEDS ORDERED: ePHEDrine sulfate 50 MG/ML AMP IV PRN (13:34)
[2022-08-07] MEDS ORDERED: ATROPINE SULFATE 0.1 MG/ML 10ML SYR IV PRN (13:34)
--- NOTE | 2022-08-07 14:12 | History & Physical Bridge Note ---
Date of Service August 07, 2022 History & Physical Bridge Note I have examined the patient, reviewed the History & Physical and in the interval since the performance of the History & Physical I have noted the following changes of clinical significance: no changes noted Lumbar decompression and fusion L5-S1
[2022-08-07] MEDS ORDERED: ceFAZolin 2,000 MG/15 ML IV PUSH IV ONE (14:19)
[2022-08-07] MEDS ORDERED: ceFAZolin 2000MG 2,000 MG/15 ML SYR IV ONE (14:20)
[2022-08-07] MEDS ORDERED: MIDAZOLAM HCL 1 MG/ML 2ML VIAL ONE (14:27)
[2022-08-07] MEDS ORDERED: fentaNYL citrate 100 MCG/2 ML VIAL ONE (14:27)
[2022-08-07] MEDS ORDERED: DEXAMETHASONE SOD INJ 4 MG/ML VIAL ONE (14:29)
[2022-08-07] MEDS ORDERED: LIDOCAINE 2% MPF LOCAL 5 ML VIAL INFIL ONE (14:29)
[2022-08-07] MEDS ORDERED: ONDANSETRON INJ 2 MG/ML 2 ML VIAL ONE (14:29)
[2022-08-07] MEDS ORDERED: PROPOFOL IV EMULSION 10 MG/ML 20 ML VIAL IV ONE (14:29)
[2022-08-07] MEDS ORDERED: ROCURONIUM BROMIDE 10 MG/ML 5 ML VIAL IV ONE ×3 (14:29→16:53)
[2022-08-07] MEDS ORDERED: BUPIVACAINE/EPINEPHRINE 0.25% 1:200,000 30 ML VIAL ONE (14:39)
[2022-08-07] MEDS ORDERED: ceFAZolin 330 MG/ML 1 GM VIAL ONE (14:39)
[2022-08-07] MEDS ORDERED: HYDROmorphone INJ 2 MG/ML SYR/VIAL ONE (14:57)
[2022-08-07] MEDS ORDERED: FLOSEAL HEMOSTATIC MATRIX 10ML TOP ONE (15:25)
[2022-08-07] MEDS ORDERED: GLYCOPYRROLATE 0.2 MG/ML VIAL ONE (16:19)
[2022-08-07] MEDS ORDERED: NEOSTIGMINE METHYLSULFATE 1 MG/ML 10ML VIAL ONE (16:19)
--- NOTE | 2022-08-07 16:24 | Operative Report ---
Post Operative Report Pre & Post Diagnosis Operation Date: 08/07/22 09:10 Pre-Op Diagnosis: Lumbar disc herniation with radiculopathy L5-S1 Post-Op Diagnosis: Lumbar disc herniation with radiculopathy L5-S1 I identified the patient and participated in the time-out.: Yes Procedure Operation Date: 08/07/22 09:10 Actual Procedures #1 lumbar decompression bilateral medial facetectomies and foraminotomies L5-S1. #2 posterior spinal fusion L5-S1. #3 placement posterior instrumentation L5- S1. #4 interbody fusion L5-S1. #5 placement of Spira 12 x 26 mm cage L5-S1. #6 placement locally harvested morselized autograft in the posterior gutters. #7 placement of I factor V toss in the interbody space and posterior lateral gutters. Surgeon Galen Grant, Data Warehouse Consultant Mary Ann Haque Estimated Blood Loss 20 Findings Consistent with Post-Op Diagnosis Specimens None Indications This is a 51-year-old male who presents with severe radiculopathy motor deficit affecting L5 nerve root on the left consistent with a foraminal extraforaminal disc herniation. Subsequently he is here for urgent decompression and fusion. Description of Procedure Patient was met with identified informed consent obtained. Patient was then taken to the operative suite underwent a patient placed in a prone position the Jex table top Shankar frame. All bony prominences well-padded eyes inspected to ensure no external pressure placed upon the. This point the lumbar spine was prepped and draped in a sterile fashion. Sharp dissection with the assistance of Bovie cautery was performed down to and exposing the lamina transverse processes of L5 and sacral ala. From caudal to cephalad fashion complete laminectomy of L5 was performed including medial facetectomies and foraminotomies. I did perform a complete facetectomy L5-S1 on the left to expose a significantly compressed exiting L V nerve root. Several fragments of free disc material noted in the foramen and extraforaminal region. After complete decompression pedicle screws were then placed in L5 and S1 levels bilaterally with assistance of fluoroscopy and the properly sized cary placed. By way the transforaminal approach on the left complete discectomy L5 was was performed endplates curetted to subcortical being bone and a 12 x 26 mm Spira cage filled I factor tapped in position. The rods were then locked in final position bilaterally. The transverse processes of L5 and sacral ala burred to subcortically bone. I factor model V testing locally harvested morselized autograft was placed in the posterior gutters. 15 urine drape drain inserted. The incision was then closed with 1 Vicryl the fascia 2-0 Vicryl subcutaneously and 4 Monocryl for final skin closure. Steri-Strip sterile dressings placed. Patient waken taken to PACU in stable condition. Please note spinal cord monitoring was utilized at the procedure no changes noted. Lastly Mary Ann Haque was present at the entire procedure and while the patient positioning complex portions of the surgery and final skin closure. I attest to the content of the Intraoperative Record and any orders documented therein. Any exceptions are noted below.
[2022-08-07] MEDS: fentaNYL citrate 100 MCG/2 ML VIAL IV PRN ×3 (16:48→17:05)
--- NOTE | 2022-08-07 17:26 | Anesthesiology Progress Note ---
Date of Service August 07, 2022 Anesthesia Post Procedure Vital Signs Vital Signs: Temp Pulse Pulse Resp BP Pulse Ox Pulse Ox 08/07/22 16:50 67 20 118/71 97 08/07/22 17:18 36.2 C L 64 12 123/75 94 08/07/22 17:10 63 12 114/75 96 08/07/22 17:00 75 12 103/83 95 08/07/22 16:40 73 20 124/83 98 08/07/22 16:32 36.3 C L 98 H 16 130/75 98 08/07/22 13:03 36.9 C 82 20 116/87 96 08/07/22 07:22 36.5 C 64 16 121/76 96 08/06/22 21:40 08/06/22 21:40 97 08/06/22 22:45 36.7 C 74 20 130/80 97 O2 Del Method O2 Del Method O2 Flow Rate 08/07/22 16:50 Oxymask 3 08/07/22 17:18 Nasal Cannula 2 08/07/22 17:10 Nasal Cannula 2 08/07/22 17:00 Nasal Cannula 2 08/07/22 16:40 Oxymask 6 08/07/22 16:32 Oxymask 6 08/07/22 13:03 Room Air 08/07/22 07:22 Room Air 08/06/22 21:40 Room Air 08/06/22 21:40 Room Air 08/06/22 22:45 Room Air Pain Intensity Bilateral Back: Pain Intensity: 5 Transfer of Care Handoff Completed per policy Notes Mental Status: alert / awake / arousable and participated in evaluation Patient Amnestic to Procedure: Yes Nausea / Vomiting: adequately controlled Pain: adequately controlled Airway Patency, RR, SpO2: stable & adequate BP & HR: stable & adequate Hydration State: stable & adequate Anesthetic Complications: no major complications apparent and Pt Satisfied with anesthetic care
--- NOTE | 2022-08-07 17:39 | Fluoroscopy Report ---
FL lumbar spine 2-3V CLINICAL HISTORY: L5-S1 DFI COMPARISON STUDY: Lumbar spine MRI July 31, 2022. FLUOROSCOPY TIME: 23 seconds. EXPOSURE DOSE: 23.59 mGy FLUOROSCOPIC IMAGES: 2 FINDINGS: Fluoroscopy was provided during the L5-S1 discectomy, posterior decompression and bilateral pedicle screw fusion. Hardware is intact. There are no unexpected radiopaque foreign bodies. IMPRESSION: Fluoroscopy provided during L5-S1 discectomy, posterior decompression and bilateral pedi byron screw fusion. ACT 112: Negative or not required by law. Electronically signed by: Pancho Lewis M.D. 08/07/2022 5:36 PM
[2022-08-07] MEDS ORDERED: bisacodyL 10 MG SUPP PR PRN (17:41)
[2022-08-07] MEDS ORDERED: hydrOXYzine HCl 25 MG TAB PO PRN (17:41)
[2022-08-07] MEDS ORDERED: ALUMINUM/MAGNESIUM SUSP 30 ML UDC PO PRN (17:41)
[2022-08-07] MEDS ORDERED: NALOXONE HCL 0.4 MG/1 ML VIAL/CARP IV PRN (17:41)
[2022-08-07] MEDS ORDERED: ACETAMINOPHEN 500 MG TAB PO PRN (17:41)
[2022-08-07] MEDS ORDERED: DO NOT ADMINISTER FLU VACCINE PRN (17:41)
[2022-08-07] MEDS ORDERED: MAGNESIUM HYDROXIDE SUSP 30 ML UDC PO PRN (17:41)
[2022-08-07] MEDS ORDERED: diphenhydrAMINE Capsule 25 MG CAP PO PRN (17:41)
[2022-08-07] MEDS ORDERED: PROMETHAZINE HCL 12.5 MG in SODIUM CHLORIDE 0.9% 50 ML IV PRN (17:41)
[2022-08-07] MEDS ORDERED: LORazepam 2 MG/1 ML VIAL IV PRN (17:41)
[2022-08-07] MEDS ORDERED: SOD PHOSPHATE/SOD BIPHOSPHATE ENEMA 132 ML BTL PR PRN (17:41)
[2022-08-07] MEDS ORDERED: FAMOTIDINE 20 MG TAB PO PRN (17:41)
[2022-08-07] MEDS ORDERED: ACETAMINOPHEN 1,000 MG/100 ML VIAL IV PRN (17:41)
[2022-08-07] MEDS ORDERED: LORazepam 0.5 MG TAB PO PRN (17:41)
[2022-08-07] MEDS ORDERED: DO NOT ADMINISTER PNEUMOCOCCAL VACCINE PRN (17:41)
[2022-08-07] MEDS ORDERED: METOCLOPRAMIDE HCL INJ 5 MG/ML 2 ML VIAL IV PRN (17:41)
[2022-08-07] MEDS ORDERED: ONDANSETRON 4 MG OD TAB PO PRN (17:41)
[2022-08-07] MEDS: LACTATED RINGER'S 1,000 ML IV SCH (20:37)
[2022-08-07] MEDS: DOCUSATE SODIUM/SENNA 50/8.6MG TAB PO SCH (20:38)
[2022-08-07] MEDS: HYDROmorphone INJ 1 MG/ML SYRINGE IV PRN (21:26)
[2022-08-07] MEDS: ceFAZolin 2000MG 2,000 MG/15 ML SYR IV SCH (22:25)
[2022-08-08] MEDS: HYDROmorphone INJ 1 MG/ML SYRINGE IV PRN ×3 (01:30→07:07)
[2022-08-08] MEDS: LACTATED RINGER'S 1,000 ML IV SCH (06:08)
[2022-08-08] MEDS: oxyCODONE HCL IR 5 MG TAB (IMMEDIATE RELEASE) PO PRN ×3 (06:15→17:25)
[2022-08-08] MEDS: ceFAZolin 2000MG 2,000 MG/15 ML SYR IV SCH (07:08)
[2022-08-08] MEDS: ACETAMINOPHEN 1,000 MG/100 ML VIAL IV SCH ×3 (07:08→21:15)
[2022-08-08 08:04] LABS: Basophils # (auto) 0.03 K/uL (0-0.2); Basophils % (auto) 0.1 %; Eosinophils # (auto) 0.02 K/uL (0-0.50); Eosinophils % (auto) 0.1 %; Hematocrit (blood only) 32.7 % (42.0-52.0); Hemoglobin 11.7 g/dl (14.0-18.0); Immature Granulocytes # (auto) 0.19 K/uL (0.01-0.20); Immature Granulocytes % (auto) 0.9 %; Lymphocytes # (auto) 2.26 K/uL (1.2-3.4); Lymphocytes % (auto) 10.7 %; Mean Corpuscular Hemoglobin 29.3 pg (25.0-34.0); Mean Corpuscular Hgb Conc 35.8 g/dL (32.0-36.0); Monocytes # (auto) 1.95 K/uL (0.11-0.59); Monocytes % (auto) 9.2 %; Platelet Count 314 K/uL (130-400); RDW Standard Deviation 36.1 fL (36.4-46.3); Red Blood Count 3.99 M/uL (4.70-6.10); White Blood Count 21.15 K/ul (4.8-10.8)
[2022-08-08 08:27] LABS: BUN Creatinine Ratio 21.6 (10-20); Calcium 8.4 mg/dl (8.5-10.1); Est GFR (African American) 116.1 ml/min; Est GFR (Non-African American) 100.2 ml/min; Magnesium 1.6 mg/dl (1.7-2.4); Potassium 3.4 mmol/L (3.5-5.1)
[2022-08-08] MEDS: POLYETHYLENE (MIRALAX) 17 GM PACK PO SCH ×3 (08:33→18:12)
[2022-08-08] MEDS: dexAMETHasone 6 MG in SYRINGE 0 ML IV SCH (08:38)
[2022-08-08] MEDS ORDERED: POTASSIUM CHLORIDE CRTAB 20 MEQ TABCR PO STA (08:38)
[2022-08-08] MEDS: ROSUVASTATIN CALCIUM 10 MG TAB PO SCH (08:39)
[2022-08-08] MEDS: ASPIRIN 81 MG ECTAB PO SCH (08:39)
[2022-08-08] MEDS: DULoxetine HCL 60 MG CAP PO SCH (08:39)
[2022-08-08] MEDS: METOPROLOL SUCC 25MG EXT REL TAB PO SCH (08:39)
[2022-08-08] MEDS: busPIRone 5 MG TAB PO SCH ×3 (08:39→19:40)
[2022-08-08] MEDS: GABAPENTIN 300 MG CAP PO SCH ×3 (08:39→19:41)
--- NOTE | 2022-08-08 08:40 | Hospitalist Progress Note ---
Date of Service August 08, 2022 Assessment & Plan (1) Intractable back pain: Plan: Patient has a long history of previous back pain and follows with [facility] pain management clinic . 3rd visit to ER in over a week for symptoms. Failed conservative treatment outpatient. Of note, had been taking ibuprofen 800mg Q4H at home -- avoiding further NSAIDs No cauda equina symptoms. WBC elevation from prior steroids, procal NEGATIVE Orthopedic surgery consulted POD# 1 s/p #1 lumbar decompression bilateral medial facetectomies and foraminotomies L5-S1. #2 posterior spinal fusion L5-S1. #3 placement posterior instrumentation L5-S1. #4 interbody fusion L5-S1. #5 placement of Spira 12 x 26 mm cage L5-S1. #6 placement locally harvested morselized autograft in the posterior gutters. #7 placement of I factor V toss in the interbody space and posterior lateral gutters. EBL 20cc Hgb 12.5--> 11.7, acute blood loss anemia from surgery as well as dilutional from IVF. Of prior note, patient taking larger quanitites on NSAIDs (~800mg Q4h x 48hrs) and would avoid further NSAIDs. PPI increased to BID empirically given steroid use Decadron 8mg daily -- WBC elevation likely from such -- procal 08/05 <0.05 Continue PPI BID while on steroids Pain control - tizanidine TID, gabapentin BID Tylenol, oxycodone, tramadol, dilaudid prn Antiemetics prn BOWEL REGIMEN -- last BM 08/06 reported by patient prior to admit. Per , typically has no issues moving his bowels -- agressive bowel regimen ordered and discussed w/ surgery PT/OT consulted DVT proph: SCDs, ethan wright, chemical proph contraindicated in back surgery (2) Hypertension: Plan: BP stable Continue amlodipine, metoprolol, and telmisartan --> held telmisartan post-op initially but BP/Cr stable and resumed for today BP this afternoon 126/74 (3) Depression with anxiety: Plan: Continue Duloxetine and Buspar (4) Hyperlipidemia: Plan: Conitnue statin (5) GERD (gastroesophageal reflux disease): Plan: Placed him on 40 mg IV pantoprazole daily for stress ulcer PPX (on omeprazole prn reflux at home) Increase to BID given complaints of reflux as well as recent NSAID use -- no further issues reported --> not resumed post-op --> will resume PO BID (6) CAD (coronary artery disease): Plan: follows with [facility] Continues on ASA, metoprolol, statin, telmisartan No CP/SOB reported (7) Hypokalemia: Plan: 3.4 on am labs, replacement ordered mag 1.6 -- IV replacement ordered Monitor labs on repeat (8) Hypomagnesemia: Plan: replacement ordered as outlined Plan continued inpatient stay pain control/bowel regimen PT/OT consults to be undertaken today If doing well/moving bowels/pain improved and tolerating on orals for tomorrow could potentially consider discharge per discussion with Dr Grant this afternoon Admission and Anticipated Discharge Date Admission Date: August 07, 2022 Supervising Physician Co-Signing Physician Notes Attending Attestation - Chart reviewed, care plan d/w ANAY Henderson. I agree w/ the oneill components of her documentation. Kane Triplett MD Subjective eval this morning, doing well currently but episode of waiting for pain medic ation w/ blown IV this morning and IV team needing multiple sticks. Passing gas and no abdominal pain, no BM. Pain controlled with order meds. States was up walking ths morning a little but then into spasm and difficult to get controlled. Will continue IV medication for breakthrough for today but hopefully be able to have transition to orals w/ good control by tomorrow. Discussed getting medication prior to therapy and getting up to chair for lunch to help control symptoms. No fever/chills, chest pain, shortness of breath, nausea/vomiting reported. Questions/concerns addressed at this time. Review of Systems Review of Systems: All systems reviewed & are unremarkable except as noted in HPI & below Physical Exam Physical Exam: General: WD obese male laying flat in bed, appears much more comfortable than day prior, NAD HEENT: head normocephalic, mm improved, trachea midline Resp: diminished bases, no w/c, on room air 96% CV: RRR, no m/r/g, no pitting edema/calf tenderness GI: +BS, obese/distended but nontender on exam, no guarding/rebound MSK/Neuro: follows commands, no slurred speech/facial droop, strength equal UE LE with increased strength w/ dorsiflexion/plantar flexion on the LLE compared to day prior, good strength on the right moderate lumbar muscle tightness dressing c/d/i pulses palpable, calves nontender to palpation Psych: AOx3, cooperative with care Skin: warm, dry, perfused Results & Data Results & Data ([facility]) Vital Signs (Past 12 Hours) Vital Signs Temp Pulse Pulse Resp BP Pulse Ox Pulse Ox 08/08/22 07:34 36.3 C L 79 20 129/80 98 08/08/22 03:25 37.0 C 69 18 137/79 98 08/08/22 00:00 97 08/08/22 01:18 08/07/22 22:58 36.9 C 69 18 99/64 L 94 O2 Del Method O2 Del Method O2 Flow Rate O2 Flow Rate 08/08/22 07:34 Room Air 08/08/22 03:25 Room Air 08/08/22 00:00 Oxymask 1 08/08/22 01:18 Nasal Cannula 1 08/07/22 22:58 Room Air Laboratory Results 08/08/22 08/08/22 Range/Units 07:40 07:40 WBC 21.15 H (4.8-10.8) K/ul RBC 3.99 L (4.70-6.10) M/uL Hgb 11.7 L (14.0-18.0) g/dl Hct 32.7 L (42.0-52.0) % MCV 82.0 (80.0-100.0) fL MCH 29.3 (25.0-34.0) pg MCHC 35.8 (32.0-36.0) g/dL RDW Std Deviation 36.1 L (36.4-46.3) fL RDW Coeff of Brooks 12.0 (11.5-14.5) % Plt Count 314 (130-400) K/uL MPV 9.0 L (9.4-12.4) fL Immature Gran % (Auto) 0.9 % Neut % (Auto) 79.0 % Lymph % (Auto) 10.7 % [place] % (Auto) 9.2 % Eos % (Auto) 0.1 % Baso % (Auto) 0.1 % Neut # (Auto) 16.70 H (1.40-6.50) K/uL Lymph # (Auto) 2.26 (1.2-3.4) K/uL [place] # (Auto) 1.95 H (0.11-0.59) K/uL Eos # (Auto) 0.02 (0-0.50) K/uL Baso # (Auto) 0.03 (0-0.2) K/uL Immature Gran # (Auto) 0.19 (0.01-0.20) K/uL Sodium 131 L (136-145) mmol/L Potassium 3.4 L (3.5-5.1) mmol/L Chloride 96 L (98-107) mmol/L Carbon Dioxide 26 (21-32) mmol/L Anion Gap 9 (3-11) BUN 19 (6-23) mg/dl Creatinine 0.88 (0.6-1.4) mg/dl Est Cr Clr Drug Dosing 106.0 ml/min Est GFR ( Amer) 116.1 ml/min Est GFR (Non-Af Amer) 100.2 ml/min BUN/Creatinine Ratio 21.6 H (10-20) Glucose 125 H (70-99(Fasting)) mg/dl Calcium 8.4 L (8.5-10.1) mg/dl Magnesium 1.6 L (1.7-2.4) mg/dl PG Care Time/CCT Total # of Minutes Spent Total Time Spent with Patient: Total time spent is greater than 50% in coordination of care (as documented) at patient's floor/unit and/or counseling patient: Coding Level of Care Code 23113 SUB INP/OBS CARE 3/50MIN Diagnoses Intractable back pain M54.9 Hypertension I10 Hypertension type: essential hypertension Depression with anxiety F41.8 Hyperlipidemia E78.5 GERD (gastroesophageal reflux disease) K21.9 CAD (coronary artery disease) I25.10 Hypokalemia E87.6 Hypomagnesemia E83.42 (1) Hypertension Hypertension type: essential hypertension Qualified Code(s): I10 - Essential (primary) hypertension
[2022-08-08] MEDS: amLODIPine BESYLATE 5 MG TAB PO SCH (08:41)
[2022-08-08] MEDS: MAGNESIUM SULFATE / D5W 1 GM/100 ML BAG IV SCH ×3 (09:37→13:52)
[2022-08-08] MEDS: traMADol HCL 50 MG TABLET PO PRN ×2 (09:50→19:44)
[2022-08-08] MEDS: HYDROmorphone INJ 0.5 MG/0.5 ML SYR IV PRN ×2 (11:03→20:31)
--- NOTE | 2022-08-08 11:04 | Orthopedic Progress Note ---
Date of Service August 08, 2022 Assessment & Plan (1) Lumbar back pain with radiculopathy affecting left lower extremity: Plan: Cali is postoperative day 1 status post TLIF L5-S1. He is doing well. We will continue physical therapy/ambulation. Continue with pain control. Maintain ALPESH drain. DVT prophylaxis is in the form of teds and SCDs. Continue with aggressive bowel regimen. Anticipate discharge home within the next 24 to 48 hours. Admission and Anticipated Discharge Date Admission Date: August 07, 2022 Subjective Cali is postoperative day 1 status post TLIF L5-S1. He has had some pain control issues this morning but this is under better control now. Has some left hamstring discomfort but overall pain is improved. ALPESH drain output last shift was 150 cc. H&H are 11.7 and 32.7 respectively. No new events Review of Systems Review of Systems: All systems reviewed & are unremarkable except as noted in HPI & below Physical Exam Physical Exam: He is laying supine in bed in no acute distress Alert and orient x3 Lumbar dressing is clean dry intact with functioning ALPESH drain Strength improved left lower extremity Calf soft nontender bilaterally Results & Data ([facility]) Vital Signs (Past 12 Hours) Vital Signs Temp Pulse Pulse Resp BP Pulse Ox Pulse Ox 08/08/22 07:34 36.3 C L 79 20 129/80 98 08/08/22 03:25 37.0 C 69 18 137/79 98 08/08/22 00:00 97 08/08/22 01:18 O2 Del Method O2 Del Method O2 Flow Rate O2 Flow Rate 08/08/22 07:34 Room Air 08/08/22 03:25 Room Air 08/08/22 00:00 Oxymask 1 08/08/22 01:18 Nasal Cannula 1
[2022-08-08] MEDS: DOCUSATE SODIUM/SENNA 50/8.6MG TAB PO SCH (19:40)
[2022-08-08] MEDS: PANTOprazole 40 MG TAB PO SCH (19:47)
[2022-08-09] MEDS: oxyCODONE HCL IR 5 MG TAB (IMMEDIATE RELEASE) PO PRN ×3 (00:29→11:44)
[2022-08-09] MEDS: POLYETHYLENE (MIRALAX) 17 GM PACK PO SCH ×3 (01:45→11:46)
[2022-08-09 08:28] LABS: Hematocrit (blood only) 33.9 % (42.0-52.0); Hemoglobin 11.8 g/dl (14.0-18.0); Mean Corpuscular Hemoglobin 29.2 pg (25.0-34.0); Mean Corpuscular Hgb Conc 34.8 g/dL (32.0-36.0); Mean Corpuscular Volume 83.9 fL (80.0-100.0); Platelet Count 285 K/uL (130-400); RDW Coefficient of Variation 12.5 % (11.5-14.5); RDW Standard Deviation 37.8 fL (36.4-46.3); Red Blood Count 4.04 M/uL (4.70-6.10); White Blood Count 18.23 K/ul (4.8-10.8)
[2022-08-09] MEDS: METOPROLOL SUCC 25MG EXT REL TAB PO SCH (09:18)
[2022-08-09] MEDS: traMADol HCL 50 MG TABLET PO PRN ×2 (09:18→13:19)
[2022-08-09] MEDS: PANTOprazole 40 MG TAB PO SCH (09:19)
[2022-08-09] MEDS: busPIRone 5 MG TAB PO SCH ×2 (09:19→13:34)
[2022-08-09] MEDS: amLODIPine BESYLATE 5 MG TAB PO SCH (09:19)
[2022-08-09] MEDS: DULoxetine HCL 60 MG CAP PO SCH (09:20)
[2022-08-09] MEDS: ROSUVASTATIN CALCIUM 10 MG TAB PO SCH (09:20)
[2022-08-09] MEDS: TELMISARTAN 40 MG TAB PO SCH (09:20)
[2022-08-09] MEDS: GABAPENTIN 300 MG CAP PO SCH ×2 (09:20→13:34)
[2022-08-09] MEDS: dexAMETHasone 6 MG in SYRINGE 0 ML IV SCH (09:20)
[2022-08-09] MEDS: ASPIRIN 81 MG ECTAB PO SCH (09:20)
[2022-08-09 09:26] LABS: Calcium 8.5 mg/dl (8.5-10.1); Creatinine Clr Calc Pharmacy 115.1 ml/min; Est GFR (African American) 120.1 ml/min; Est GFR (Non-African American) 103.6 ml/min; Magnesium 2.2 mg/dl (1.7-2.4); Potassium 3.9 mmol/L (3.5-5.1)
[2022-08-09] MEDS ORDERED: BACLOFEN 10 MG TAB PO PRN (10:46)
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
== END 2022-08-09 13:50 | disposition home or self-care (01) | DRG 454 ==
LOC: ED 20:06 → 3N 20:06 → SUATTDRO 21:22 → 3N 22:34 → SUATTDRO 08-07 09:04

== ENCOUNTER 2023-01-08 07:30 | Inpatient (IN) ==
--- NOTE | 2022-12-19 10:49 | PAT Medication Instructions ---
Medication Instructions Date of Service December 19, 2022 Home Medications Medication Instructions Recorded amlodipine 10 mg tablet 10 mg PO QAM #90 tabs 06/30/21 telmisartan 80 mg tablet 80 mg PO QAM #90 tabs 09/06/21 desoximetasone 0.25 % topical cream 1 applic topical BID PRN skin 06/30/22 irritation #15 grams metoprolol succinate 25 mg 25 mg PO QAM #30 tabs 07/11/22 tablet,extended release 24 hr tizanidine 4 mg tablet 4 mg PO Q8H PRN muscle spasticity 11/02/22 #30 tabs celecoxib 200 mg capsule (Celebrex) 200 mg PO DAILY PRN Pain #30 caps 12/01/22 Medication List: amlodipine 10 mg tablet 10 mg PO QAM telmisartan 80 mg tablet 80 mg PO QAM aspirin 81 mg capsule 81 mg PO QAM omeprazole magnesium 20 mg tablet,delayed release (Prilosec OTC) 20 mg PO DAILY PRN desoximetasone 0.25 % topical cream 1 applic topical BID PRN skin irritation metoprolol succinate 25 mg tablet,extended release 24 hr 25 mg PO QAM buspirone 10 mg tablet 10 mg PO TID tizanidine 4 mg tablet 4 mg PO Q8H PRN muscle spasticity celecoxib 200 mg capsule (Celebrex) 200 mg PO DAILY PRN Pain duloxetine 30 mg capsule,delayed release 60 mg PO QAM rosuvastatin 20 mg tablet 20 mg PO QAM ASK your surgeon for instructions celecoxib 200 mg capsule (Celebrex) 200 mg PO DAILY PRN Pain ASK your prescriber and surgeon aspirin 81 mg capsule 81 mg PO QAM DO NOT take the morning of surgery telmisartan 80 mg tablet 80 mg PO QAM desoximetasone 0.25 % topical cream 1 applic topical BID PRN skin irritation (do not use on surgical area after showering in preparation for surgery) tizanidine 4 mg tablet 4 mg PO Q8H PRN muscle spasticity Take morning of surgery With a small sip of water, OTHERWISE NOTHING TO EAT OR DRINK AFTER MIDNIGHT: rosuvastatin 20 mg tablet 20 mg PO QAM metoprolol succinate 25 mg tablet,extended release 24 hr 25 mg PO QAM omeprazole magnesium 20 mg tablet,delayed release (Prilosec OTC) 20 mg PO DAILY PRN duloxetine 30 mg capsule,delayed release 60 mg PO QAM buspirone 10 mg tablet 10 mg PO TID amlodipine 10 mg tablet 10 mg PO QAM Take evening before surgery buspirone 10 mg tablet 10 mg PO TID tizanidine 4 mg tablet 4 mg PO Q8H PRN muscle spasticity Other Notes If you have any questions please call us at [phone] or [phone] or [phone] or [phone]
--- NOTE | 2022-12-25 10:22 | Anesthesiology Consultation ---
Date of Service December 25, 2022 Assessment & Plan (1) Encounter for pre-operative examination: Plan - s/p 08/07/22 L5-S1 decompression fusion Grade 1 view, MAC 4, ETT 8. - cardiology 08/24/22: "...hypertension...mild leg swelling with amlodipine...n onobstructive CAD...abnormal EKG. poor R wave progression...feeling well and offers no acute concerns...continue aspirin...return in about 1 year..." Chart Review Chart Review: Acceptable Risk for Surgery and Patient seen in Pre Admission Testing Teaching & Discussion Pre-Anesthesia Teaching/Discussion Notes: Instructed NPO after midnight before surgery, except medications with 15 cc of water. Medication instructions provided according to the PAT guidelines. History Surgery Operation Date: 01/08/23 10:05 Proposed Procedures p L4-L5 Decompression and Fusion, L5-S1 Hardware Removal Possible L5-S1 Re- Instrumentation Spinal Cord Monitoring - Galen Grant DO Height/Weight Height: 5 ft 6 in Weight: 95.1 kg Allergies Allergy/AdvReac Type Severity Reaction Status Date / Time Sulfa (Sulfonamide Allergy Mild Nausea Verified 12/19/22 09:06 Antibiotics) Medications Home Medications Medication Instructions Recorded Confirmed Last Taken amlodipine 10 mg tablet 10 mg PO QAM #90 tabs 06/30/21 12/19/22 12/07/21 telmisartan 80 mg tablet 80 mg PO QAM #90 tabs 09/06/21 12/19/22 12/07/21 aspirin 81 mg capsule 81 mg PO QAM 12/06/21 12/19/22 12/07/21 omeprazole magnesium 20 mg 20 mg PO DAILY PRN Acid Reflux 12/06/21 12/19/22 Unknown tablet,delayed release (Prilosec OTC) desoximetasone 0.25 % topical cream 1 applic topical BID PRN skin 06/30/22 Unknown irritation #15 grams metoprolol succinate 25 mg 25 mg PO QAM #30 tabs 07/11/22 12/19/22 Unknown tablet,extended release 24 hr buspirone 10 mg tablet 10 mg PO TID 08/29/22 12/19/22 Unknown tizanidine 4 mg tablet 4 mg PO Q8H PRN muscle spasticity 11/02/22 12/19/22 Unknown #30 tabs celecoxib 200 mg capsule (Celebrex) 200 mg PO DAILY PRN Pain #30 caps 12/01/22 12/19/22 Unknown duloxetine 30 mg capsule,delayed 60 mg PO QAM 12/19/22 12/19/22 Unknown release rosuvastatin 20 mg tablet 20 mg PO QAM 12/19/22 12/19/22 Unknown Past Medical History Medical History (Updated 12/25/22 @ 10:24 by Felicity Baires PA-C) Alcohol use disorder resolved per pt B12 deficiency CAD (coronary artery disease) nonobstructive per S records Cognitive impairment MOST RECENT HEAD INJURY (5 YEARS AGO) on occasion Degenerative disc disease Depression with anxiety GERD (gastroesophageal reflux disease) controlled, stable per pt History of COVID-27 Jul 2019 > can't recall symptoms > resolved Hx of renal calculi Hyperlipidemia Hypertension controlled, stable per pt Lumbar back pain with radiculopathy affecting left lower extremity Postconcussion syndrome LAST EVENT ~5 YEARS AGO>"still has some memory loss" Patient denies h/o stroke, seizures, heart attack, heart failure, DM, blood c lots or blood transfusions. Exercise / Class Metabolic Activity II 4-5 Yardwork/Stairs/Walk up hill (denies chest discomfort or shortness of breath with 1 FOS) Past Family History Family History Mother Hypertension History of blood clots Father Hypertension Denies family history of Ovarian cancer Prostate cancer Myocardial infarction Breast cancer Colorectal cancer Past Surgical History Surgical History (Updated 12/25/22 @ 10:25 by Felicity Baires PA-C) Family history of reaction to anesthesia MOTHER-SLOW TO WAKE UP H/O shoulder surgery Rt. rotator cuff repair History of arthroscopy RT KNEE History of colonoscopy History of left hip replacement (~11/2019) History of left inguinal hernia repair History of lumbar surgery L5-S1 surgery [address] Grant; and 07/2022 History of tooth extraction Hx of lithotripsy S/P cystoscopy with ureteral stent placement w/laser destruction Past Anesthesia History No Hx of Anesthesia Complications and Other (mother slow to wake after surgery) History of PONV No Hx of PONV and No Hx of Motion Sickness Social History Smoking Status: Never smoker tobacco type: smokeless tobacco Do You Dip or Chew Tobacco: Yes (1 can/1.5-2 days; advised) Hx Alcohol Use: No Alcohol type: beer alcohol intake frequency: other Hx Substance Use: Yes (medical card) substance use type: marijuana Substance Use Type Other:: HX of alcohol abuse 4 years ago Last Used Substance Other:: every 2-3 days Review of Systems Patient denies chest pain, shortness of breath, dyspnea on exertion, snoring, witnessed apneas, fever, chills, cough, wheezing, or palpitations. Physical Exam Vital Signs Vitals BP 128/81 P 69 TEMP 98.3 SP02 94% on RA RESP 17 Physical Full cervical extension range of motion without pain TMD 3.5 finger breadths Mallampati Score 2 Dentition: intact, denies chipped or loose teeth, caps/crowns, implants or bridges Lungs: normal respiratory effort. Good air movement, clear throughout to auscultation, no adventitious breath sounds Cardiac: regular rate and rhythm, no murmurs noted Carotid arteries: negative bruit bilat Lab Results Anesthesia Preop Results Results Anesthesia Widget: WBC 8.94 K/ul (4.8-10.8) 12/25/22 Hgb 14.7 g/dl (14.0-18.0) 12/25/22 Hct 43.1 % (42.0-52.0) 12/25/22 Plt 401 K/uL (130-400) H 12/25/22 Na 138 mmol/L (136-145) 12/25/22 K 4.5 mmol/L (3.5-5.1) 12/25/22 Cl 103 mmol/L (98-107) 12/25/22 CO2 28 mmol/L (21-32) 12/25/22 BUN 12 mg/dl (6-23) 12/25/22 Creat 0.99 mg/dl (0.6-1.4) 12/25/22 Glucose Level 89 mg/dl (70-99(Fasting)) 12/25/22 PT 10.4 Seconds (9.0-12.0) 12/25/22 PTT 28.0 Seconds (21.0-31.0) 12/25/22 INR 0.9 (0.9-1.1) 12/25/22 Urine Color Yellow 12/25/22 Urine Appearance Clear (Clear) 12/25/22 Urine pH 7.0 (4.5-7.5) 12/25/22 Urine Specific [place] 1.009 (1.000-1.030) 12/25/22 Urine Protein Negative (Negative) 12/25/22 Urine Glucose (UA) Negative (Negative) 12/25/22 Urine Ketones Negative (Negative) 12/25/22 Urine Blood Negative (Negative) 12/25/22 Urine Nitrite Negative (Negative) 12/25/22 Urine Bilirubin Negative (Negative) 12/25/22 Urine Urobilinogen Negative (Negative) 12/25/22 Urine Leukocyte Esterase Negative (Negative) 12/25/22 Blood Type A Negative 12/25/22 Antibody Screen NEGATIVE 12/25/22 Testing Electrocardiogram Date: 12/25/22 NSR, rate 63 bpm Chest X-Ray Date: 08/29/22 *1view* No acute chest disease Echocardiogram Date: 10/25/21 EF 65-70% No regional wall motion abnormalities No significant valvular abnormalities COVID-19 Risk Screen Screening Information COVID-19 Screen Date: 12/25/22 Exposure 21 Days Family/Household +COVID Last 21 Days: No Exposure 10 Days Any COVID Exposure Last 10 Days: No Symptoms Last 10 Days Experienced COVID Sx Last 10 Days: No + COVID 0-90 Days COVID + in Last 0-90 Days: No
[~2023-01-08 07:30] MED LIST changes: -BUPIVACAINE 0.5 % 5 MG/1 ML PF 10ML VIAL ONE; -CEFAZOLIN 2000MG 2,000 MG/15 ML SYR IV SCH; -FAMOTIDINE 20 MG TAB PO SCH; +LR 15ML/HR IV SCH; -LR 500ML BOLUS, THEN 15ML/HR IV SCH; -LR 60ML/HR IV SCH; -TRANEXAMIC ACID 1,000 MG **IV Intra-op IV SCH; -TRANEXAMIC ACID 1,000 MG **IV Pre-op IV SCH; +ceFAZolin 2000MG 2,000 MG/15 ML SYR IV SCH; -dexAMETHasone 4 MG TAB PO SCH
[2023-01-08] MEDS ORDERED: PROMETHAZINE HCL 6.25 MG in SODIUM CHLORIDE 0.9% 50 ML IV PRN (08:44)
[2023-01-08] MEDS ORDERED: ONDANSETRON INJ 2 MG/ML 2 ML VIAL IV PRN ×2 (08:44→12:37)
[2023-01-08] MEDS ORDERED: ePHEDrine sulfate 50 MG/ML AMP IV PRN (08:44)
[2023-01-08] MEDS ORDERED: ATROPINE SULFATE 0.1 MG/ML 10ML SYR IV PRN (08:44)
--- NOTE | 2023-01-08 08:55 | History & Physical Bridge Note ---
Date of Service January 08, 2023 History & Physical Bridge Note I have examined the patient, reviewed the History & Physical and in the interval since the performance of the History & Physical I have noted the following changes of clinical significance: no changes noted
--- NOTE | 2023-01-08 09:00 | History & Physical Report ---
Date of Service January 08, 2023 Assessment & Plan (1) Lumbar back pain with radiculopathy affecting left lower extremity: Plan: L4-L5 decompression fusion, L5-S1 hardware removal, possible L5-S1 reinstrumentation History of Present Illness Chief Complaint: back and leg pain Primary Care Provider: Uli Kaiser MD This is a 52-year-old male who presents with chronic persistent back and leg pain after failing course of nonoperative care is here for surgical invention. Allergies Allergy/AdvReac Type Severity Reaction Status Date / Time Sulfa (Sulfonamide Allergy Mild Nausea Verified 01/08/23 08:20 Antibiotics) Home Medications Medication Instructions Recorded Confirmed Type amlodipine 10 mg tablet 10 mg PO QAM #90 tabs 06/30/21 01/08/23 Rx telmisartan 80 mg tablet 80 mg PO QAM #90 tabs 09/06/21 01/08/23 Rx aspirin 81 mg capsule 81 mg PO QAM 12/06/21 01/08/23 History omeprazole magnesium 20 mg 20 mg PO DAILY PRN Acid Reflux 12/06/21 01/08/23 History tablet,delayed release (Prilosec OTC) desoximetasone 0.25 % topical cream 1 applic topical BID PRN skin 06/30/22 01/08/23 Rx irritation #15 grams metoprolol succinate 25 mg 25 mg PO QAM #30 tabs 07/11/22 01/08/23 Rx tablet,extended release 24 hr tizanidine 4 mg tablet 4 mg PO Q8H PRN muscle spasticity 11/02/22 01/08/23 Rx #30 tabs celecoxib 200 mg capsule (Celebrex) 200 mg PO DAILY PRN Pain #30 caps 12/01/22 01/08/23 Rx duloxetine 30 mg capsule,delayed 60 mg PO QAM 12/19/22 01/08/23 History release rosuvastatin 20 mg tablet 20 mg PO QAM 12/19/22 01/08/23 History buspirone 10 mg tablet 10 mg PO TID #90 tabs 12/27/22 01/08/23 Rx Past Med/Surg History Medical History Alcohol use disorder B12 deficiency CAD (coronary artery disease) Cognitive impairment Degenerative disc disease Depression with anxiety GERD (gastroesophageal reflux disease) History of COVID-19 Hx of renal calculi Hyperlipidemia Hypertension Lumbar back pain with radiculopathy affecting left lower extremity Postconcussion syndrome Surgical History Family history of reaction to anesthesia H/O shoulder surgery History of arthroscopy History of colonoscopy History of left hip replacement (~11/2019) History of left inguinal hernia repair History of lumbar surgery History of tooth extraction Hx of lithotripsy S/P cystoscopy with ureteral stent placement Family History Mother Hypertension History of blood clots Father Hypertension Denies family history of Ovarian cancer Prostate cancer Myocardial infarction Breast cancer Colorectal cancer Social History Smoking Status: Never smoker Second Hand Exposure: No; Do You Dip or Chew Tobacco: Yes (1 can/1.5-2 days; advised); Tobacco Cessation Education Requested by Patient: No Hx Alcohol Use: No Hx Substance Use: Yes (medical card) Last Used Substance Other:: every 2-3 days Substance Use Type Other:: HX of alcohol abuse 4 years ago Preferred Language: Botswanan Communication Ability: Effective Visual Impairment: No Limitations Hearing Ability: Normal Bundle Tier Required: No Beliefs That Will Affect Care: None marital status: Current Living Situation: Spouse current occupational status: employed 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
[2023-01-08] MEDS ORDERED: LIDOCAINE 2% 2 ML VIAL/AMP(20MG/ML) INFIL ONE (09:03)
[2023-01-08] MEDS ORDERED: HYDROmorphone INJ 2 MG/ML SYR/VIAL ONE (09:03)
[2023-01-08] MEDS ORDERED: DEXAMETHASONE SOD INJ 4 MG/ML VIAL ONE (09:03)
[2023-01-08] MEDS ORDERED: ONDANSETRON INJ 2 MG/ML 2 ML VIAL ONE (09:03)
[2023-01-08] MEDS ORDERED: PROPOFOL IV EMULSION 10 MG/ML 20 ML VIAL IV ONE (09:03)
[2023-01-08] MEDS ORDERED: GLYCOPYRROLATE 0.2 MG/ML VIAL ONE (09:03)
[2023-01-08] MEDS ORDERED: MIDAZOLAM HCL 1 MG/ML 2ML VIAL ONE (09:03)
[2023-01-08] MEDS ORDERED: ROCURONIUM BROMIDE 10 MG/ML 5 ML VIAL IV ONE ×3 (09:03→09:48)
[2023-01-08] MEDS ORDERED: NEOSTIGMINE METHYLSULFATE 1 MG/ML 10ML VIAL ONE (09:03)
[2023-01-08] MEDS ORDERED: ceFAZolin 330 MG/ML 1 GM VIAL ONE (09:15)
[2023-01-08] MEDS ORDERED: BUPIVACAINE/EPINEPHRINE 0.25% 1:200,000 30 ML VIAL ONE (09:15)
[2023-01-08] MEDS ORDERED: ePHEDrine sulfate 50 MG/ML SYR ONE (09:41)
[2023-01-08] MEDS ORDERED: FLOSEAL HEMOSTATIC MATRIX 10ML TOP ONE (10:01)
--- NOTE | 2023-01-08 10:57 | Operative Report ---
Post Operative Report Pre & Post Diagnosis Operation Date: 01/08/23 09:05 Pre-Op Diagnosis: Lumbar spinal stenosis with radiculopathy Post-Op Diagnosis: Same I identified the patient and participated in the time-out.: Yes Procedure Operation Date: 01/08/23 09:05 Actual Procedures 1. Removal of posterior instrumentation L5-S1. #2 exploration of fusion L5-S1. #3 lumbar decompression with bilateral medial facetectomies and foraminotomies L3-L4 L4-5. #4 posterior spinal fusion L4-5 per #5 placement of posterior instrumentation L4-S1. #6 interbody fusion L4-5. #7 placement of Spira 15 x 26 mm at L4-5. #8 placement locally harvested morselized autograft in the posterior gutters. Benign placement of I factor amount of the test interbody space and posterior lateral gutters. Surgeon Galen Grant, Swim Coach Mary Ann Haque Estimated Blood Loss 100 Findings Consistent with Post-Op Diagnosis Specimens none Indications This is a 52-year-old male who presents with current persistent radiculopathy after failing course of nonoperative care is here for surgical intervention. Description of Procedure Patient was met with identified informed consent obtained. Patient was then taken to the operative suite underwent a patient placed in a prone position on the [place] table top Shankar frame. All bony prominences well-padded eyes inspected to ensure no external pressure placed upon them. This point the lumbar spine was prepped and draped in a sterile fashion. Sharp dissection with the assistance of Bovie cautery to form down to and exposing the lamina and transverse processes of L4 and instrumentation at L5-S1 bilaterally. I then proceeded move the hardware bilaterally explore the fusion mass noting it to be maturing. I then performed a complete laminectomy of L4 partial laminectomy L3 including bilateral medial facetectomies and foraminotomies addressing all neural compression. Pedicle screws were then placed in L4-L5 and S1 levels bilaterally with assistance of fluoroscopy the properly sized cary placed. By way of a trans foraminal approach on the left complete discectomy of L for L5 was performed endplates curetted to subcortically bone and a 15 x 26 mm Spira cage with I factor tapped position. Rods then locked in final position bilaterally. The transverse processes of L4-5 burred to subcortically bone. I factor bone of the test and locally harvested morselized autograft was placed in the posterior gutters. 15 round ALPESH drain inserted. The incision was then closed with 1 Vicryl to fascia 2-0 Vicryl subcutaneously and 4 Monocryl for final skin closure. Steri-Strip sterile dressing placed. Patient awakened taken to PACU stable condition. Please note spinal cord monitoring was utilized at the procedure no changes noted. Lastly Mary Ann Haque was present at the entire surgeon while the patient positioning complex portions of the surgery and final skin closure. I attest to the content of the Intraoperative Record and any orders documented therein. Any exceptions are noted below.
[2023-01-08] MEDS: fentaNYL citrate PF 100 MCG/2 ML VIAL IV PRN ×2 (11:25→11:32)
--- NOTE | 2023-01-08 11:27 | Fluoroscopy Report ---
FL lumbar spine 2-3V CLINICAL HISTORY: L4-L5 DECOMPRESSION AND FUSION L5-S1 HW REMOVAL POSS L5-S1 TECHNIQUE: 2 views were obtained with the C-arm in the OR with the above procedure. Total fluoroscopy time was 14.2 seconds. Radiation dose was 16.8 mGy. Comparison: Comparison is made to MRI lumbar spine 12/11/2022 FINDINGS/IMPRESSION: Intraoperative images were obtained of decompression and fusion of the lumbar sp ine. Please correlate with intraoperative fluoroscopy and operative report. ACT 112: Negative or not required by law. Electronically signed by: Calvin Goncalves M.D. 01/08/2023 11:26 AM
[2023-01-08] MEDS: HYDROmorphone INJ 2 MG/ML SYR/VIAL IV PRN ×2 (11:38→11:44)
[2023-01-08] MEDS ORDERED: SOD PHOSPHATE/SOD BIPHOSPHATE ENEMA 132 ML BTL PR PRN (12:37)
[2023-01-08] MEDS ORDERED: ALUMINUM/MAGNESIUM SUSP 30 ML UDC PO PRN (12:37)
[2023-01-08] MEDS ORDERED: MAGNESIUM HYDROXIDE SUSP 30 ML UDC PO PRN (12:37)
[2023-01-08] MEDS ORDERED: FAMOTIDINE 20 MG TAB PO PRN (12:37)
[2023-01-08] MEDS ORDERED: hydrOXYzine HCl 25 MG TAB PO PRN (12:37)
[2023-01-08] MEDS ORDERED: DO NOT ADMINISTER PNEUMOCOCCAL VACCINE PRN (12:37)
[2023-01-08] MEDS ORDERED: HYDROmorphone INJ 0.5 MG/0.5 ML SYR IV PRN (12:37)
[2023-01-08] MEDS ORDERED: PANTOprazole 40 MG TAB PO PRN (12:37)
[2023-01-08] MEDS ORDERED: NALOXONE HCL 0.4 MG/1 ML VIAL/CARP IV PRN (12:37)
[2023-01-08] MEDS ORDERED: ACETAMINOPHEN 500 MG TAB PO PRN (12:37)
[2023-01-08] MEDS ORDERED: ONDANSETRON 4 MG OD TAB PO PRN (12:37)
[2023-01-08] MEDS ORDERED: tiZANidine HCL 4 MG TABLET PO PRN (12:37)
[2023-01-08] MEDS ORDERED: bisacodyL 10 MG SUPP PR PRN (12:37)
[2023-01-08] MEDS ORDERED: METOCLOPRAMIDE HCL INJ 5 MG/ML 2 ML VIAL IV PRN (12:37)
[2023-01-08] MEDS ORDERED: DO NOT ADMINISTER FLU VACCINE PRN (12:37)
[2023-01-08] MEDS ORDERED: LORazepam 2 MG/1 ML VIAL IV PRN (12:37)
[2023-01-08] MEDS ORDERED: ACETAMINOPHEN 1,000 MG/100 ML VIAL IV PRN (12:37)
[2023-01-08] MEDS ORDERED: diphenhydrAMINE Capsule 25 MG CAP PO PRN (12:37)
[2023-01-08] MEDS ORDERED: LORazepam 0.5 MG TAB PO PRN (12:37)
[2023-01-08] MEDS ORDERED: PROMETHAZINE HCL 12.5 MG in SODIUM CHLORIDE 0.9% 50 ML IV PRN (12:37)
--- NOTE | 2023-01-08 12:52 | Hospitalist Consultation ---
Date of Consultation January 08, 2023 Assessment & Plan (1) Status post lumbar spine surgery for decompression of spinal cord: Pain/VTE/bowel management per primary orthopedic team (2) GERD (gastroesophageal reflux disease): Switch pantoprazole to ASHLEY due to stress of operation and steroid use (3) CAD (coronary artery disease): Continue ASA per orthopedic recommendations, metoprolol, losartan (switched from telmisartan per hospital formulary, dosing as below), rosuvastatin (4) Hypertension: Continue metoprolol Hold Losartan to POD#2 with hold parameters Restart amlodipine POD#1 with hold parameters (5) Depression with anxiety: Continue BuSpar and duloxetine History of Present Illness Reason for Consultation: Medical management Attending Physician: Galen Grant DO History of Present Illness Cali Adams is a 52 year old male POD#0 revision lumbar spinal decompression and posterior spinal fusion. Estimated blood loss 100ml. No acute concerns or questions from the patient. He reports his chronic medical conditions are under control. Only uses medications for GERD when he has a certain meal that sets it off. History of alcohol use disorder but not current use for years. Allergies Allergy/AdvReac Type Severity Reaction Status Date / Time Sulfa (Sulfonamide Allergy Mild Nausea Verified 01/08/23 08:20 Antibiotics) Home Medications Medication Instructions Recorded Confirmed Type amlodipine 10 mg tablet 10 mg PO QAM #90 tabs 06/30/21 01/08/23 Rx telmisartan 80 mg tablet 80 mg PO QAM #90 tabs 09/06/21 01/08/23 Rx aspirin 81 mg capsule 81 mg PO QAM 12/06/21 01/08/23 History omeprazole magnesium 20 mg 20 mg PO DAILY PRN Acid Reflux 12/06/21 01/08/23 History tablet,delayed release (Prilosec OTC) desoximetasone 0.25 % topical cream 1 applic topical BID PRN skin 06/30/22 01/08/23 Rx irritation #15 grams metoprolol succinate 25 mg 25 mg PO QAM #30 tabs 07/11/22 01/08/23 Rx tablet,extended release 24 hr tizanidine 4 mg tablet 4 mg PO Q8H PRN muscle spasticity 11/02/22 01/08/23 Rx #30 tabs celecoxib 200 mg capsule (Celebrex) 200 mg PO DAILY PRN Pain #30 caps 12/01/22 01/08/23 Rx duloxetine 30 mg capsule,delayed 60 mg PO QAM 12/19/22 01/08/23 History release rosuvastatin 20 mg tablet 20 mg PO QAM 12/19/22 01/08/23 History buspirone 10 mg tablet 10 mg PO TID #90 tabs 12/27/22 01/08/23 Rx Patient History Medical History Alcohol use disorder B12 deficiency CAD (coronary artery disease) Cognitive impairment Degenerative disc disease Depression with anxiety GERD (gastroesophageal reflux disease) History of COVID-19 Hx of renal calculi Hyperlipidemia Hypertension Lumbar back pain with radiculopathy affecting left lower extremity Postconcussion syndrome Surgical History Family history of reaction to anesthesia H/O shoulder surgery History of arthroscopy History of colonoscopy History of left hip replacement (~11/2019) History of left inguinal hernia repair History of lumbar surgery History of tooth extraction Hx of lithotripsy S/P cystoscopy with ureteral stent placement Family History Mother Hypertension History of blood clots Father Hypertension Denies family history of Ovarian cancer Prostate cancer Myocardial infarction Breast cancer Colorectal cancer Social History Smoking Status: Never smoker Second Hand Exposure: No; Do You Dip or Chew Tobacco: Yes (1 can/1.5-2 days; advised); Tobacco Cessation Education Requested by Patient: No Hx Alcohol Use: No Hx Substance Use: Yes (medical card) Last Used Substance Other:: every 2-3 days Substance Use Type Other:: HX of alcohol abuse 4 years ago Preferred Language: Bahamian Communication Ability: Effective Visual Impairment: No Limitations Hearing Ability: Normal Microphone Boom Operator Required: No Beliefs That Will Affect Care: None marital status: Current Living Situation: Spouse current occupational status: employed 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 Other Information That Helps Us Care for You: No Feels Safe at Home: Yes Safety Concerns: Feels Safe At This Time Childhood Exposure to Second-Hand Smoke: No caffeine: Yes Dental Care, Regularly: No Physical Activity Frequency: Daily Seatbelt Use: always Sunscreen Use: Yes Assistive Devices: Glasses Review of Systems Review of Systems: All systems reviewed & are unremarkable except as noted in HPI & below Physical Exam Constitutional: WD/WN, vitals as above Eyes: + anicteric sclerae; normal pupil size ENMT: external ear and nose normal, oropharynx normal Respiratory: normal respiratory effort, lungs clear to auscultation Cardiovascular: RRR, no murmur, no edema Gastrointestinal (Abdomen): normal bowel sounds, soft, nontender, no hepatosplenomegaly Skin: no rashes, warm and dry Neurologic: awake; not confused 5/5 dorsi/plantarflex ankles, full sensation intact Psychiatric: A+Ox3, euthymic affect Results & Data Results & Data Vital Signs (Past 12 Hours) Vital Signs Temp Pulse Pulse Resp BP Pulse Ox O2 Del Method 01/08/23 12:30 37.4 C 88 16 110/79 93 Room Air 01/08/23 12:20 69 16 116/82 94 Nasal Cannula 01/08/23 12:00 36.8 C 70 21 118/89 95 Nasal Cannula 01/08/23 11:50 65 12 133/93 97 Oxymask 01/08/23 11:40 80 16 111/90 98 Oxymask 01/08/23 11:30 73 16 127/87 98 Oxymask 01/08/23 11:20 85 14 120/74 100 Oxymask 01/08/23 11:10 36.2 C L 87 10 L 112/74 95 Oxymask 01/08/23 08:09 36.9 C 64 20 125/84 96 Room Air O2 Flow Rate 01/08/23 12:30 01/08/23 12:20 2 01/08/23 12:00 2 01/08/23 11:50 2 01/08/23 11:40 4 01/08/23 11:30 4 01/08/23 11:20 6 01/08/23 11:10 10 01/08/23 08:09 PG Care Time/CCT Total # of Minutes Spent Total Time Spent with Patient: Total time spent is greater than 50% in coordination of care (as documented) at patient's floor/unit and/or counseling patient: Coding Level of Care Code 16154 IN/OBS CONSULT LVL 3,45M Diagnoses Status post lumbar spine surgery for decompression of spinal cord Z98.890 GERD (gastroesophageal reflux disease) K21.9 CAD (coronary artery disease) I25.10 Hypertension I10 Hypertension type: essential hypertension Depression with anxiety F41.8 (4) Hypertension Hypertension type: essential hypertension Qualified Code(s): I10 - Essential (primary) hypertension
[2023-01-08] MEDS: LACTATED RINGER'S 1,000 ML IV SCH ×2 (13:01→20:18)
[2023-01-08] MEDS: HYDROmorphone INJ 1 MG/ML SYRINGE IV PRN ×3 (13:01→22:10)
--- NOTE | 2023-01-08 14:13 | Anesthesiology Progress Note ---
Date of Service January 08, 2023 Anesthesia Post Procedure Vital Signs Vital Signs: Temp Pulse Pulse Resp BP Pulse Ox O2 Del Method 01/08/23 13:30 36.7 C 76 16 109/72 94 Nasal Cannula 01/08/23 13:00 37.0 C 72 16 127/75 95 Nasal Cannula 01/08/23 12:30 37.4 C 88 16 110/79 93 Room Air 01/08/23 12:20 69 16 116/82 94 Nasal Cannula 01/08/23 12:00 36.8 C 70 21 118/89 95 Nasal Cannula 01/08/23 11:50 65 12 133/93 97 Oxymask 01/08/23 11:40 80 16 111/90 98 Oxymask 01/08/23 11:30 73 16 127/87 98 Oxymask 01/08/23 11:20 85 14 120/74 100 Oxymask 01/08/23 11:10 36.2 C L 87 10 L 112/74 95 Oxymask 01/08/23 08:09 36.9 C 64 20 125/84 96 Room Air O2 Flow Rate 01/08/23 13:30 2 01/08/23 13:00 2 01/08/23 12:30 01/08/23 12:20 2 01/08/23 12:00 2 01/08/23 11:50 2 01/08/23 11:40 4 01/08/23 11:30 4 01/08/23 11:20 6 01/08/23 11:10 10 01/08/23 08:09 Pain Intensity Medial Back: Pain Intensity: 10 Transfer of Care Handoff Completed per policy Notes Mental Status: alert / awake / arousable Patient Amnestic to Procedure: Yes Nausea / Vomiting: adequately controlled Pain: adequately controlled Airway Patency, RR, SpO2: stable & adequate BP & HR: stable & adequate Hydration State: stable & adequate Anesthetic Complications: no major complications apparent
[2023-01-08] MEDS: oxyCODONE HCL IR 5 MG TAB (IMMEDIATE RELEASE) PO PRN ×2 (14:56→20:17)
[2023-01-08] MEDS: busPIRone 5 MG TAB PO SCH ×2 (15:23→20:12)
[2023-01-08] MEDS ORDERED: METOPROLOL SUCC 25MG EXT REL TAB PO STA (16:16)
[2023-01-08] MEDS: traMADol HCL 50 MG TABLET PO PRN (18:39)
[2023-01-08] MEDS: DOCUSATE SODIUM/SENNA 50/8.6MG TAB PO SCH (20:11)
[2023-01-09] MEDS: oxyCODONE HCL IR 5 MG TAB (IMMEDIATE RELEASE) PO PRN ×3 (02:42→22:33)
[2023-01-09] MEDS: POLYETHYLENE (MIRALAX) 17 GM PACK PO SCH ×3 (05:54→17:28)
[2023-01-09] MEDS: LACTATED RINGER'S 1,000 ML IV SCH (06:10)
[2023-01-09] MEDS: traMADol HCL 50 MG TABLET PO PRN ×2 (06:18→14:23)
[2023-01-09 07:30] LABS: BUN Creatinine Ratio 11.1 (10-20); Calcium 8.7 mg/dl (8.6-10.3); Creatinine Clr Calc Pharmacy 104.1 ml/min; Est GFR (African American) 114.2 ml/min; Est GFR (Non-African American) 98.5 ml/min; Potassium 4.2 mmol/L (3.5-5.1)
[2023-01-09 07:32] LABS: Basophils # (auto) 0.03 K/uL (0-0.2); Basophils % (auto) 0.1 %; Eosinophils # (auto) 0.01 K/uL (0-0.50); Hematocrit (blood only) 35.3 % (42.0-52.0); Hemoglobin 12.3 g/dl (14.0-18.0); Immature Granulocytes # (auto) 0.13 K/uL (0.01-0.20); Immature Granulocytes % (auto) 0.6 %; Lymphocytes # (auto) 1.43 K/uL (1.2-3.4); Lymphocytes % (auto) 6.6 %; Mean Corpuscular Hemoglobin 28.9 pg (25.0-34.0); Mean Corpuscular Hgb Conc 34.8 g/dL (32.0-36.0); Mean Corpuscular Volume 82.9 fL (80.0-100.0); Mean Platelet Volume 9.7 fL (9.4-12.4); Monocytes # (auto) 1.73 K/uL (0.11-0.59); Monocytes % (auto) 7.9 %; Neutrophils # (auto) 18.45 K/uL (1.40-6.50); Neutrophils % (auto) 84.8 %; Platelet Count 318 K/uL (130-400); RDW Coefficient of Variation 13.2 % (11.5-14.5); RDW Standard Deviation 39.8 fL (36.4-46.3); Red Blood Count 4.26 M/uL (4.70-6.10); White Blood Count 21.78 K/ul (4.8-10.8)
[2023-01-09] MEDS: HYDROmorphone INJ 1 MG/ML SYRINGE IV PRN (07:37)
[2023-01-09] MEDS ORDERED: CYCLOBENZAPRINE HCL 10 MG TAB PO PRN (08:29)
--- NOTE | 2023-01-09 08:31 | Orthopedic Progress Note ---
Date of Service January 09, 2023 Assessment & Plan (1) Lumbar facet joint syndrome: Plan: We will initiate physical therapy today. Discontinue continue his Law today. Hopefully discharge home in the next few days. Admission and Anticipated Discharge Date Admission Date: January 08, 2023 Subjective Patient complaining predominantly of back pain leg pain is improved. Physical Exam Physical Exam: Patient is in bed. Is constricted testing. Results & Data Vital Signs (Past 12 Hours) Vital Signs Temp Pulse Resp BP Pulse Ox O2 Del Method 01/09/23 06:54 37.4 C 80 16 132/78 95 Room Air 01/09/23 02:34 36.6 C 87 16 127/77 96 Room Air 01/08/23 22:13 36.6 C 95 H 18 155/90 H 100 Room Air Queries Orthopedic Spine Obesity: Yes
[2023-01-09] MEDS: busPIRone 5 MG TAB PO SCH ×3 (08:39→20:11)
[2023-01-09] MEDS: amLODIPine BESYLATE 5 MG TAB PO SCH (08:39)
[2023-01-09] MEDS: ASPIRIN 81 MG ECTAB PO SCH (08:39)
[2023-01-09] MEDS: METOPROLOL SUCC 25MG EXT REL TAB PO SCH (08:40)
[2023-01-09] MEDS: DULoxetine HCL 60 MG CAP PO SCH (08:40)
[2023-01-09] MEDS: ROSUVASTATIN CALCIUM 20 MG TAB PO SCH (08:40)
[2023-01-09] MEDS: dexAMETHasone 6 MG in SYRINGE 0 ML IV SCH (08:43)
[2023-01-09] MEDS: PANTOprazole 40 MG TAB PO SCH (08:43)
[2023-01-09] MEDS ORDERED: KETOROLAC 30 MG/ML VIAL IV ONE (08:45)
[2023-01-09] MEDS ORDERED: LOSARTAN POTASSIUM 50 MG TAB PO SCH (09:00)
[2023-01-09] MEDS: KETOROLAC 30 MG/ML VIAL IV PRN (17:52)
[2023-01-09] MEDS: DOCUSATE SODIUM/SENNA 50/8.6MG TAB PO SCH (20:12)
[2023-01-10] MEDS: HYDROmorphone INJ 1 MG/ML SYRINGE IV PRN (01:35)
[2023-01-10] MEDS: POLYETHYLENE (MIRALAX) 17 GM PACK PO SCH ×4 (01:35→17:29)
[2023-01-10] MEDS: KETOROLAC 30 MG/ML VIAL IV PRN ×2 (05:40→18:38)
[2023-01-10] MEDS: ASPIRIN 81 MG ECTAB PO SCH (08:29)
[2023-01-10] MEDS: ROSUVASTATIN CALCIUM 20 MG TAB PO SCH (08:29)
[2023-01-10] MEDS: PANTOprazole 40 MG TAB PO SCH (08:29)
[2023-01-10] MEDS: METOPROLOL SUCC 25MG EXT REL TAB PO SCH (08:29)
[2023-01-10] MEDS: DULoxetine HCL 60 MG CAP PO SCH (08:29)
[2023-01-10] MEDS: amLODIPine BESYLATE 5 MG TAB PO SCH (08:30)
[2023-01-10] MEDS: LOSARTAN POTASSIUM 50 MG TAB PO SCH (08:30)
[2023-01-10] MEDS: busPIRone 5 MG TAB PO SCH ×3 (08:30→20:25)
[2023-01-10] MEDS: dexAMETHasone 6 MG in SYRINGE 0 ML IV SCH (08:33)
[2023-01-10] MEDS: oxyCODONE HCL IR 5 MG TAB (IMMEDIATE RELEASE) PO PRN ×3 (09:56→20:25)
--- NOTE | 2023-01-10 11:55 | Orthopedic Progress Note ---
Date of Service January 10, 2023 Assessment & Plan (1) Lumbar facet joint syndrome: Plan: At this time continue physical therapy monitor his ALPESH output anticipate discharge home tomorrow. Admission and Anticipated Discharge Date Admission Date: January 08, 2023 Subjective Back pain controlled leg pain improved Physical Exam Physical Exam: Patient has good strength testing. Appears comfortable. Results & Data Vital Signs (Past 12 Hours) Vital Signs Temp Pulse Resp BP Pulse Ox O2 Del Method 01/10/23 08:27 84 124/81 01/10/23 07:11 36.6 C 89 18 102/68 98 Room Air Queries Orthopedic Spine Obesity: Yes
[2023-01-10] MEDS: DOCUSATE SODIUM/SENNA 50/8.6MG TAB PO SCH (20:25)
--- NOTE | 2023-01-10 22:24 | Communication Note ---
Date of Service: January 10, 2023 D/W primary service. Vitals stable. No active medical issues currently. Anticipate discharge within 24 hours. Medicine service will sign off. Please reach out if any questions or concerns.
[2023-01-10] MEDS: traMADol HCL 50 MG TABLET PO PRN (22:33)
[2023-01-11] MEDS: POLYETHYLENE (MIRALAX) 17 GM PACK PO SCH ×2 (02:27→05:50)
[2023-01-11] MEDS: amLODIPine BESYLATE 5 MG TAB PO SCH (08:08)
[2023-01-11] MEDS: busPIRone 5 MG TAB PO SCH (08:10)
[2023-01-11] MEDS: METOPROLOL SUCC 25MG EXT REL TAB PO SCH (08:10)
[2023-01-11] MEDS: DULoxetine HCL 60 MG CAP PO SCH (08:11)
[2023-01-11] MEDS: ROSUVASTATIN CALCIUM 20 MG TAB PO SCH (08:11)
[2023-01-11] MEDS: ASPIRIN 81 MG ECTAB PO SCH (08:11)
[2023-01-11] MEDS: LOSARTAN POTASSIUM 50 MG TAB PO SCH (08:12)
[2023-01-11] MEDS: PANTOprazole 40 MG TAB PO SCH (08:12)
[2023-01-11] MEDS: dexAMETHasone 6 MG in SYRINGE 0 ML IV SCH (08:15)
--- NOTE | 2023-01-11 08:41 | Discharge Summary ---
Date of Service January 11, 2023 Admission HPI Per Admitting Provider This is a 52-year-old male who presents with chronic persistent back and leg pain after failing course of nonoperative care is here for surgical invention. Principal Diagnosis Lumbar spinal stenosis with radiculopathy Discharge Data Allergies Allergy/AdvReac Type Severity Reaction Status Date / Time Sulfa (Sulfonamide Allergy Mild Nausea Verified 01/08/23 08:20 Antibiotics) Consultations 01/08/23 12:37 Consult Hospitalist Routine Procedures Performed Operation Date: 01/08/23 09:05 Actual Procedures p L4-L5 Decompression and Fusion, L5-S1 Re-Instrumentation, Interbody L4-5, Spinal Cord Monitoring(Bilateral) - Galen Grant DO s L5-S1 Hardware Removal(Bilateral) - Galen Grant DO Ordered Studies 01/08/23 09:05 [place] lumbar spine 2-3V Routine Hospital Course (1) Lumbar facet joint syndrome: Patient went lumbar decompression fusion tolerated this well was taken to orthopedic floor postoperative. Postop day 1 is up and ambulating progress postop day #2 on postop day #3 ALPESH drain decreasing probably. Pain well controlled. Excellent strength testing. Subsequent discharge home. Discharge orders and instructions found in chart for further review. Total Time Total Time Spent Total Time Spent (In Minutes): 20 minutes Discharge Plan Discharge Items Patient Disposition: Home - Self-Care Reason For Visit: Intervertebral Disc Disorders with Radiculopathy Discharge Diagnosis: Lumbar spinal stenosis with radiculopathy Activity: As commented below Non-emergency contact: Primary Care Provider Call non-emergency contact if: you have any medication questions Follow-up/Referrals: Uli Kaiser MD [Primary Care Provider] - Diet: Regular Addtl Attending Provider Instructions: ACTIVITY RECOMMENDATIONS: SELF CARE INSTRUCTIONS AFTER THORACIC/LUMBAR FUSIONS 1. You may walk to your tolerance. It is good exercise for your legs and back. Expect some back and intermittent leg aches and pains. 2. You may perform "counter-top" level activities (make a sandwich, belkys with a project, etc.). 3. No bending or lifting of more than 10 pounds or back twisting of any nature (roll like a log when turning in bed). 4. You may ride in a car for 20-30 minutes at a time. No driving until after your first visit with your doctor. 5. Frequent changes of position and restricting sitting to 30 minutes at a time will help limit the amount of back spasms and stiffness you may experience. 6. You may discontinue the use of ambulatory aids (cane, crutches, etc.) once your strength and confidence allow. 7. You may insurance agents supervisor the shower and let water strike your incision when you arrive home at least once daily. Do not take a tub bath, sit in a hot tub or go into a swimming pool until after your first recheck in the office. SPECIAL CARE INSTRUCTIONS: VERY IMPORTANT TO READ AND REVIEW A. Your surgical incision has been closed with a cosmetic suture under the skin that will dissolve in about 6 weeks. In 14 days, you can use a pair of clean scissors and cut the suture that is left outside of the skin at the ends of your incision. 1. The small skin tapes can be removed 7 days after surgery if they have not fallen off by that point. 2. You may keep the wound open to air as much as possible to promote healing after post-op day number 5 unless told otherwise by your doctor. 3. If you think the wound looks like it is becoming infected (redness or worsening drainage) and/or you are experiencing fever, chill or worsening back pain and muscle spasms, contact the office so that we may evaluate you as soon as possible. B. Complications are uncommon, but please contact us if you have any signs or symptoms of: 1. wound infection (fever higher than 102.5 degrees F, redness, separation of wound, drainage, or increasing pain from the incision) 2. blood clots in legs (pain, swelling, redness and warmth in legs) 3. urinary tract infection (fever higher than 102.5 degrees F, burning upon urination or increased frequency of urination) 4. nerve problems (inability to walk on your toes or heels, numbness, loss of bowel or bladder control) 5. any other symptoms that concern you C. Please call the office at if you have any concerns or questions about your operation or recovery. D. No smoking! Smoking drastically decreases the chance of a solid fusion. E. Do not take any anti-inflammatory medications (Indocin, Advil, Motrin, Aspirin, Naprosyn, etc.) as these may inhibit the chance of a solid fusion. Tylenol is okay to take for pain. MANAGING PAIN AFTER SPINAL SURGERY 1. Narcotic medication is intended for short-term use and will be provided for surgical pain. Surgical pain usually lasts for a period of 4-6 weeks. Narcotic medication includes Percocet, Vicodin, Darvocet, Tylenol #3 or Lortab. 2. Longer-term pain is more appropriately treated with non-narcotic medication such as Tylenol ES. 3. Muscle spasm is not appropriately treated with narcotics. Muscle relaxers such as Soma, Flexeril or Skelaxin can be used along with Tylenol ES. 4. Remember that we all live with some "aches and pains". This is not unusual or uncommon after an injury or as we get older. a. Back pain is expected and may include muscle spasms for 4 to 6 weeks after surgery. The pain should gradually improve. If the pain worsens for no apparent reason, please contact the office. b. Intermittent leg pain may also be experienced and should not be concerned about unless it worsens for no apparent reason. If so, please contact the office. 5. We will provide appropriate medication within the normal guidelines of their prescribed use. We will also be very cautious and aware of potential abuse and extended duration of patients' medication needs. a. Pain medications are for your comfort and to assist with sleep and rest so that the tissue can heal. They are not provided in order to return to normal activity and should not be used through the day. To do so or worsening pain at night can result from ongoing tissue damage and development of tolerance to the prescribed medicine. 6. Please allow 2-3 days to process refills. Prescriptions will not be mailed but must be picked up at the office. FOLLOW UP VISIT: Keep your scheduled follow-up appointment. Any questions, please call the office at . Pending Studies at Discharge: No Stand-Alone Forms: [employer] [facility], Smoking Cessation Medications and DC Order Prescriptions: New tramadol 50 mg tablet 50 mg PO Q6H PRN (Reason: pain, moderate) Qty: 30 0RF oxycodone 5 mg tablet 5 mg PO Q6H PRN (Reason: pain) Qty: 30 0RF Continued amlodipine 10 mg tablet 10 mg PO QAM Qty: 90 3RF telmisartan 80 mg tablet 80 mg PO QAM Qty: 90 3RF desoximetasone 0.25 % cream 1 applic topical BID PRN (Reason: skin irritation) Qty: 15 0RF metoprolol succinate 25 mg tablet extended release 24 hr 25 mg PO QAM Qty: 30 5RF Rx Instructions: TAKE ONE TABLET BY MOUTH EVERY MORNING tizanidine 4 mg tablet 4 mg PO Q8H PRN (Reason: muscle spasticity) Qty: 30 1RF celecoxib [Celebrex] 200 mg capsule 200 mg PO DAILY PRN (Reason: Pain) Qty: 30 2RF buspirone 10 mg tablet 10 mg PO TID Qty: 90 3RF rosuvastatin 20 mg Tablet 20 mg PO QAM duloxetine 30 mg capsule,delayed release(DR/EC) 60 mg PO QAM aspirin 81 mg Capsule 81 mg PO QAM omeprazole magnesium [Prilosec OTC] 20 mg tablet,delayed release (DR/EC) 20 mg PO DAILY PRN (Reason: Acid Reflux) Discharge Orders: Discharge Order (Routine); Ordered 01/11/23 Ordered By: Galen Grant Admission Data Admit Date/Time: 01/08/23 11:02 Attending Provider: Galen Grant Admit Provider: Galen Grant Primary Care Provider: Uli Kaiser Other Providers: Kane Salazar ; Fito Hernandez
== END 2023-01-11 13:19 | disposition home or self-care (01) | DRG 455 ==
LOC: ASU 07:30 → 3E 11:02